=== PATIENT | male | born 1955 | race Caucasian/White ===

== ENCOUNTER 2019-12-06 11:10 | Inpatient (IN) ==
--- NOTE | 2019-12-06 12:05 | Diag Imaging Result Doc PS360 ---
EXAM: CHEST-1 VIEW 12/06/2019 HISTORY: SOB TECHNIQUE: Erect AP portable at 1131 COMMENT: There are diffuse alveolar opacities throughout both lungs particularly in the parahilar regions and particularly in the right upper lobe. These findings were not present on 04/16/2012. The heart size and primary vascularity are increased in size. There is a Port-A-Cath on the right. There are sternotomy wires. IMPRESSION: Pulmonary edema and/or pneumonia. Cardiomegaly. Electronically signed by Luis Antonio Hoffmann 12/06/2019 12:03 PM
[2019-12-06] MEDS ORDERED: AMIDATE ONE ×2 (12:06→19:08)
[2019-12-06] MEDS ORDERED: QUELICIN ONE ×2 (12:07→19:05)
[2019-12-06] MEDS ORDERED: NS 1,000 ML ONE (12:16)
[2019-12-06 12:25] LABS: ALB/GLOB RATIO 1.4; ALBUMIN 3.9 g/dL (3.5-5.0); BASO# 0.03 X1000 (0.0-0.2); BASO% 0.1 % (0.0-0.8); CALCIUM 9.1 mg/dL (8.8-10.2); CREATININE 2.7 mg/dL (0.7-1.2); HEMATOCRIT 29.1 % (42.0-52.0); HEMOGLOBIN 9.4 g/dL (14.0-18.0); IMM GRAN# 0.22 X1000 (0.0-0.04); IMM GRAN% 0.6 % (0.0-0.5); LYMPH# 1.43 X1000 (1.2-3.4); LYMPH% 3.6 % (20.5-51.1); MCH 29.5 PG (27-31); MCHC 32.3 g/dL (33-37); MCV 91.2 FL (81-99); MONO# 2.45 X1000 (0.11-0.59); MONO% 6.2 % (1.7-9.3); MPV 9.2 FL (7.4-10.4); NEUT# 35.47 X1000 (1.4-6.5); NEUT% 89.5 % (42.2-75.2); PLT 385 X1000 (130-400); POTASSIUM 5.8 mmol/L (3.5-5.1); RBC 3.19 XMIL (4.7-6.1); TOTAL BILIRUBIN 0.47 mg/dL (0.20-1.00); TOTAL PROTEIN 6.7 g/dL (6.3-8.3)
[2019-12-06] MEDS ORDERED: VERSED 100 MG in NS 80 ML IV SCH (12:30)
[2019-12-06 12:33] LABS: INR 1.16; PTT 27.8 Seconds (22.3-41.8)
[2019-12-06 12:37] LABS: BANDS 4 % (0-1); LYMPHS 4 % (21-51); MONO 2 % (1-9); SEGS 90 % (42-75)
[2019-12-06 12:38] LABS: HYPOCHROM 1+
[2019-12-06] MEDS ORDERED: VERSED ONE (12:52)
[2019-12-06] MEDS ORDERED: AMIDATE IV ONE (13:26)
[2019-12-06] MEDS ORDERED: VERSED IV ONE (13:27)
[2019-12-06] MEDS ORDERED: QUELICIN IV ONE (13:27)
[2019-12-06] MEDS ORDERED: NS 1,000 ML IV ONE (13:30)
[2019-12-06] MEDS ORDERED: DIPRIVAN 1% IV ONE (13:39)
[2019-12-06] MEDS ORDERED: FENTANYL ONE (13:40)
[2019-12-06] MEDS ORDERED: DIPRIVAN 1% 1,000 MG/100 ML BOTTLE ONE ×2 (13:49→19:06)
[2019-12-06] MEDS ORDERED: LASIX IV ONE (13:51)
[2019-12-06] MEDS: DIPRIVAN 1% 1,000 MG/100 ML BOTTLE IV SCH ×3 (14:00→23:06)
[2019-12-06] MEDS ORDERED: ROCEPHIN 1 GM in NS 50 ML IV ONE (14:14)
[2019-12-06] MEDS ORDERED: ZITHROMAX 500 MG/NS 500 MG/250 ML IVPB IV ONE (14:15)
[2019-12-06 15:25] LABS: ALLEN TEST YES; BE -8.3 mmoll (-3.0-3.0); BLOOD TYPE ARTERIAL; HCO3-(ACT) 18.5 mmoll (20.0-26.0); O2(CT) 6.1 mL/dL (15.0-23.0); O2HB 98.2 % (95.0-99.0); PCO2(98.6) 40 mmHg (35-45); PO2(98.6) 249 mmHg (60-100); SAMPLE BLOOD; SAO2 99.8 % (95.0-100.0); SRATE 16 BPM; THB 3.9 g/dL (11.5-17.4); TVOL 500 mL; pH(98.6) 7.26 (7.35-7.45)
[2019-12-06 15:27] LABS: MODALITY VENTILATOR
--- NOTE | 2019-12-06 15:34 | PROVIDER DOCUMENTATION ---
This chart was entered by Mike Ribeiro Scribe, acting as scribe for Randee Prasad MD. HPI-General Adult - General Chief Complaint: Altered Mental Status Stated Complaint: AMS, SOB, RESTLESS Time Seen by Provider: 12/06/19 11:15 Source: family, EMS Unable to obtain history due to:: altered Allergies/Adverse Reactions: Patient Allergies Allergy/AdvReac Type Severity Reaction Status Date / Time No Known Allergies Allergy Verified 12/06/19 11:47 Home Medications: Home Medication List Medication Instructions Recorded Confirmed Last Taken Type Metoprolol [Lopressor] 50 mg PO BID 10/29/15 12/06/19 12/01/19 09:30 History Pregabalin [Lyrica] 150 mg PO HS 10/29/15 12/06/19 11/30/19 21:00 History Zolpidem [Ambien] 10 mg PO QHS 10/29/15 12/06/19 11/30/19 21:00 History Lansoprazole 30 mg PO HS 11/17/19 12/06/19 11/30/19 21:00 History Methocarbamol 750 mg PO BID 11/17/19 12/06/19 11/30/19 21:00 History PRAVAstatin [Pravachol] 20 mg PO HS 11/17/19 12/06/19 11/30/19 21:00 History Hydrocodone/Acetaminophen [[place] 1 ea PO Q6H PRN PRN #10 tab 11/18/19 12/06/19 12/01/19 09:30 Rx 10-325 Tablet] Ondansetron HCl [Zofran] 4 mg PO Q6H PRN PRN #5 tab 11/18/19 12/06/19 11/30/19 21:00 Rx Cetirizine HCl [Zyrtec] 10 mg PO BID 12/06/19 12/06/19 Unknown History - History of Present Illness -Gen Adult Nature of Presenting Problems: Pt is a 64 y/o m presents to the ED by EMS called by family. Family reports pt has been altered since his first chemo treatment yesterday and for difficulty breathing. EMS reports the orginal call was for AMS then changed to difficulty breathing. On arrival EMS report pt was on the floor with difficulty breathing with an O2 sat in the low 80's. EMS reports pt was anxious and agigtated and restless not keeping still. They report calling and getting permission for 2mg of Versed. EMS reports O2 improved with O2 and breathing treatment. Location of Pain/Injury: reports: none Severity: reports: moderate, severe Onset/Duration: reports: 24 hours ago (began AMS), this morning (SOB) Timing: reports: still present Context/Activities at Onset: reports: none Associated Symptoms: reports: anxiety, shortness of breath. denies: cough, fever/chills Similar Symptoms Previously?: No Recently seen or treated by another doctor?: No Review of Systems - Adult - REVIEW OF SYSTEMS - ADULT ROS:: ROS per family (AMS) Constitutional: denies: chills, fever Eyes: reports: no symptoms reported Ears, Nose, Mouth & Throat: reports: no symptoms reported Cardiovascular: denies: chest pain, edema Respiratory: reports: shortness of breath, wheezing Gastrointestinal: denies: abdominal pain, nausea, vomiting Genitourinary: denies: dysuria, hematuria Musculoskeletal: denies: back pain, neck pain Integumentary: reports: no symptoms reported Neurological: denies: dizziness/vertigo, headache/migraines, seizure Psychiatric: reports: anxiety. denies: alcohol/drug dependence, suicidal thoughts Endocrine: reports: no symptoms reported Hematologic/Lymphatic: reports: no symptoms reported Allergic/Immunologic: reports: no symptoms reported All Other Systems: Reviewed and Negative Past History - Adult - PAST MEDICAL HISTORY-ADULT Review of Records: reports: Old Records Reviewed, Nursing Assessment Review, Medications Reviewed - SOCIAL HISTORY Smoking: non-smoker, quit greater than 1 year Substance Use: none/never Living Situation: family Physical Exam-General - PHYSICAL EXAM-ADULT Initial Vital Signs Reviewed: Yes - CONSTITUTIONAL General Appearance: alert, moderate distress, anxious, other (restless) - EYES Eyes: PERRL/EOMI, pink conjunctivae - NECK Neck: full range of motion, supple - RESPIRATORY Respiratory: accessory muscle use, wheezing, increased rate, other (On arrival to ED pt SAT 69 RA improved to the 80 with 4L NC and began Non rebreather moving to 90.) - CARDIOVASCULAR Cardiovascular: normal peripheral pulses, tachycardia - GASTROINTESTINAL (ABDOMEN) Abdominal Exam: non tender, soft - MUSCULOSKELETAL Extremity: normal range of motion, non-tender, pedal edema - SKIN Integumentary: normal turgor, warm/dry - NEUROLOGIC Neurologic: grossly normal, no motor/sensory deficits - PSYCHIATRIC Psych/Mental Status: normal mood/affect, normal thought content, normal thought process, oriented x 3 Progress - PLAN OF CARE/RESULTS Progress/Plan/Lab Results: Vital Signs - 8 hr 12/06/19 11:12 12/06/19 11:16 Temperature 99.1 F 99.1 F Pulse Rate 109 H Respiratory Rate 30 H Blood Pressure 170/90 O2 Sat by Pulse Oximetry 69 L Laboratory Results - last 24 hr 12/06/19 11:25 POC Glucose 168 H Orders Category Date Time Status Cardiac Monitoring NOW Care 12/06/19 11:21 Active IV Insertion NOW Care 12/06/19 11:21 Completed NEWS Score >or=5:Order NEWS Bundle S.O. NOW Care 12/06/19 11:21 Active Notify Provider of NEWS Score NOW Care 12/06/19 11:21 Active CHEST-1 VIEW [RAD] Stat Exams 12/06/19 11:21 Taken BLOOD CULTURE [BLDCUL] Stat Lab 12/06/19 11:21 Uncollected CBC WITH DIFF [HEME] Stat Lab 12/06/19 11:34 Ordered CK PROFILE [SP CHEM] Stat Lab 12/06/19 11:34 Ordered COMPREHENSIVE METABOLIC PANEL [CHEM] Stat Lab 12/06/19 11:34 Ordered LACTATE, PLASMA [CHEM] Lab 12/06/19 14:30 Uncollected LACTATE, PLASMA [CHEM] Lab 12/06/19 17:30 Uncollected LACTATE, PLASMA [CHEM] Q3H Lab 12/06/19 11:34 Ordered PROTIME WITH INR [COAG] Stat Lab 12/06/19 11:34 Ordered PTT [COAG] Stat Lab 12/06/19 11:34 Ordered TROPONIN T HIGH SENSITIVITY Stat Lab 12/06/19 11:34 Ordered URINALYSIS W/POSS RFLX CULT [URINALYSIS] Stat Lab 12/06/19 11:21 Uncollected O2 Per Protocol Stat Oth 12/06/19 11:21 Active EKG [EKG] Stat Ther 12/06/19 11:22 Ordered Result Diagrams: 12/06/19 11:26 12/06/19 11:26 - REASSESSMENT Reassessment #1 Time Reassessed: 12:04 (Pt O2 SAT on NonRebreather in low 90's) Status: worsening (Pt continues to be restless not tolerating the nonrebrether taking it off, struggling to breath) Reassessment #2 Time Reassessed: 13:34 Status: worsening (Versed drip maxed out and pt remain restless and no fighting vent. Will switch sedation) - EKG 1 Time of EKG reading by physician:: 11:42 EKG Read and Signed by:: Randee Prasad EKG Interpretation (*Must complete 3 of following elements*): Abnormal Rate: 107 Rhythm: 107 Comments: cannot rule out andterior infarct age undetermined - XRAY 1 XRAY Study: Chest Impression: Abnormal (IMPRESSION: Pulmonary edema and/or pneumonia. Cardiomegaly. Electronically signed by Luis Antonio Hoffmann 12/06/2019 12:03 PM) - CONSULTS/PCP/HOSPITALIST Notification #1 *Consult/PCP/Hospitalist*: hosptial Dr Barlow spoke with [place] Time Discussed: 15:33 Reason/Comments: admission Consult Disposition: Will see in ED Procedures - INTUBATION Time of Intubation: 12:15 Intubation Method: orotracheal Equipment: ETT Tube Size (cm): 7.5 Pretreated with 100% Oxygen?: Yes Breath Sounds after Intubation: equal ETT Primary Tube Confirmation: Capnometry CO2 Change, Chest Rise and Fall, Tube placement verified on XRAY Intubation Complications: no complications Vent Settings: See Respiratory Therapy Notes - PROCEDURAL SEDATION Consent Form Signed?: No (Emergent) Sedation type:: deep Indications:: Intubation Prior complications to general anesthesia?: No Prior complications to procedural sedation?: No ASA Classification Score: E. Emergent conditions applies. Airway Physical Exam: normal anatomy Preparation: oximetry during procedure, capnometry during procedure, IV access obtained, suction immediately available Sedation: etomidate (40 mg), other (80mb os Sucs) Complications during/after procedure?: none Departure - Departure Date of Disposition Decision: 12/06/19 Time of Disposition Decision: 15:33 DIAGNOSIS: Pneumonia Qualifiers: Pneumonia type: due to unspecified organism Laterality: unspecified laterality Lung location: unspecified part of lung Qualified Code(s): J18.9 - Pneumonia, unspecified organism Disposition: HOME 01 Certified Medical Emergency: Emergent Condition: Critical Referrals and Follow-Ups: Mao Gomez DO [Primary Care Provider] - - Critical Care Note This patient required my direct & personal management of CC.: Yes Attestation - Physician/ DAY Attestation Patient care was provided by Advanced Practice Provider:: No The physician spent face to face time with patient:: Yes Advanced Practice Provider documentation review:: Supervising physician onsite and consulted in the evaluation and care of this patient. The physician did have a face to face encounter with the patient. This chart was documented by the indicated scribe, (Mike Ribeiro Scribe) and accurately reflects the services I performed and decisions made by me, Randee Prasad MD, as attested by the provider's signature.
--- NOTE | 2019-12-06 16:31 | HISTORY AND PHYSICAL ---
This is a 64-year-old. He is a patient of Dr. Ralph Gomez also followed by Dr. Rangel, recent diagnosis of lymphoma largely in the chest cavity and he recently had MRI for altered mental status, which was unremarkable for any metastatic disease or intracranial pathology, other microvascular changes. Reportedly, he has got more short of breath and came into the emergency room where he had significant hypoxemia. He was intubated. 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 He has had right cervical lymph node which was biopsied. No postop complications following that. PAST MEDICAL HISTORY: He has porphyria cutanea tarda, he has thrombocytopenia nonspecific, anemia iron deficiency unspecific, he has history of neoplasm of the prostate. I think he presented with diffuse large cell B-cell lymphoma with lymphadenopathy with cervical lymphadenopathy but has significant lymphadenopathy in the chest cavity as well. FAMILY HISTORY: History of cancer mother, history of diabetes mother and father, history of heart disease in father, heart disease in male family members before age 55, kidney disease in his mother. SOCIAL HISTORY: No alcohol or drug use. No HIV risk factors. Unable to get review of systems. MEDICATIONS: I reviewed his medication list. He is on Zofran 4 mg he takes p.r.n. nausea, pravastatin 20 mg daily, he was on methocarbamol 750 mg q.12 hours, zolpidem 10 mg at bedtime for sleep, irbesartan hydrochlorothiazide 150/12.5 one tablet in the morning, pregabalin 150 mg capsule I think once a day, hydrocodone acetaminophen 10/325 as needed for pain, aspirin 81 mg a day, metoprolol 50 mg I suspect he takes that twice a day, pravastatin 20 mg daily, lansoprazole 30 mg daily. PHYSICAL EXAMINATION: He is intubated, sedated. His temperature is 99.1 degrees, pulse 109, respirations 30, blood pressure 170/90. Pupils were equal. CVP less than 6 cm. LUNGS: Clear anterolateral. I do not appreciate any cervical or jugular adenopathy preclavicular. I did not appreciate any at this time. ABDOMEN: Soft, nondistended. SKIN: Warm and dry. He has trace edema in his ankles to midshin. Conjunctivae is pink. NECK: Appears to be supple but he is sedated. LABS: White blood cell count 39,600, hematocrit 29, hemoglobin 9.4, platelet count 385,000, 89% neutrophils and 3.6% lymphocytes. Sodium 129, potassium 3.8, chloride 96, BUN 61, creatinine 2.7, blood sugar was 167, calcium 9.1, AST 24, ALT 6, alkaline phosphatase was 73. ProBNP was 35,000. Troponin was 40. CK was 176. ProTime is 15, PTT is 27. Blood gases on arrival, pH was 7.26, pCO2 of 40, PO2 was 249, O2 saturation was 99% and that was after he was intubated with spontaneous rate of 16, FiO2 100%, tidal volume 500, PEEP of 5.0. Chest x-ray on presentation pulmonary edema and pneumonia, cardiomegaly. ASSESSMENT AND PLAN: 1. Presented with respiratory failure, underlying lymphoma largely in the chest cavity. He does appear to have some pulmonary venous hypertension. We are going to check an echocardiogram and look at his left ventricular function. His blood pressures are high so has adequate blood pressure at this time. We will give him some Lasix, will give him 40 mg IV push of Lasix now and then we will give him 40 mg q.12. Will put him on broad-spectrum antibiotics because of his underlying lymphoma. Cover for gram-negative as well as community- acquired pneumococcus and Pseudomonas. We will have him on Zosyn and vancomycin. 2. Renal function. His creatinine was 2.7. Looking back at his creatinines, I do not see any previous number but I assume that is acute kidney injury, not sure what his baseline is. Will watch his urine output and electrolytes. 3. His potassium is 5.8. Aware. We will watch. We will check electrolytes again in the morning as well as magnesium. We will get Pulmonary to help, also get Dr. Rangel, his oncologist/chiropractor sole practitioner to help follow along. 4. He has significant other medical problems. He has benign prostatic hypertrophy, history of prostate cancer in the past, aware. He has a history of primary porphyria cutanea tarda, he has a history of iron deficiency anemia. He has been on long-term I think hormone blocking agents but I did not see it on his list but that was on his report in the past and then recently diagnosed with diffuse large B-cell lymphoma presented with lymphadenopathy in cervical area. We will obviously check him for COVID-19. I do not have high suspicion that he has COVID-19 virus infection but he has been checked. I will move him to ICU. cc: Ben Barlow MD MTDD
--- NOTE | 2019-12-06 16:33 | Diag Imaging Result Doc PS360 ---
EXAM: CHEST/ABD TUBE PLACEMENT 12/06/2019 HISTORY: INTUBATED TECHNIQUE: Upright AP portable at 1233 COMMENT: There is an endotracheal tube with its tip at the thoracic inlet. There is a Port-A-Cath with its tip in the right atrium. There is diffuse alveolar opacity particularly in the parahilar regions as well as some interstitial edema with Lala B lines. This is slightly worse than on 12/06/2019 at 1131. IMPRESSION: Worsened pulmonary edema and/or pneumonia. Electronically signed by Luis Antonio Hoffmann 12/06/2019 4:30 PM
--- NOTE | 2019-12-06 19:56 | EKG Report ---
Test Performed on : 12/06/2019 11:42:50 AM Test Reason : SOB Blood Pressure : / mmHG Vent. Rate : 107 BPM Atrial Rate : 107 BPM P-R Int : 132 ms QRS Dur : 082 ms QT Int : 320 ms P-R-T Axes : 039 037 031 degrees QTc Int : 427 ms Sinus tachycardia. Cannot rule out Anterior infarct , age undetermined Abnormal ECG No previous ECGs available Unconfirmed Result
[2019-12-06] MEDS ORDERED: VANCOMYCIN IV PER PHARMACY MISC SCH (20:10)
[2019-12-06] MEDS: DUONEB (A & A) INH SCH ×2 (20:38→23:40)
[2019-12-06 21:11] LABS: FREE T4 0.82 ng/dL (0.93-1.70); TSH 0.16 uIUmL (0.27-4.20)
[2019-12-06] MEDS: ZOSYN 3.375 GM in NS 50 ML IV SCH (21:30)
[2019-12-06 22:35] LABS: URINE SOURCE CATH
[2019-12-06 22:41] LABS: BILIRUBIN URINE NEGATIVE (NEGATIVE); BLOOD URINE LARGE (NEGATIVE); COLOR STRAW; GLUCOSE URINE NEGATIVE (NEGATIVE); KETONE URINE NEGATIVE (NEGATIVE); LEUKOCYTES URINE SMALL (NEGATIVE); NITRITE URINE NEGATIVE (NEGATIVE); PROTEIN URINE TRACE mg/dL (NEGATIVE); SP GRAVITY URINE 1.011; TURBIDITY URINE CLEAR (CLEAR); UROBILINOGEN URINE NORMAL (NORMAL)
[2019-12-06 22:42] LABS: UR EPITHELIAL CELLS <10 /HPF (<10); URINE BACTERIA NEGATIVE /HPF; URINE RBC TNTC /HPF (<10)
[2019-12-06] MEDS ORDERED: VANCOMYCIN 2,000 MG in NS 500 ML IV ONE (23:00)
[2019-12-07] MEDS: DIPRIVAN 1% 1,000 MG/100 ML BOTTLE IV SCH ×8 (02:15→23:41)
[2019-12-07] MEDS: ZOSYN 3.375 GM in NS 50 ML IV SCH ×4 (02:52→20:45)
[2019-12-07] MEDS: LASIX IV SCH ×3 (03:10→16:30)
[2019-12-07] MEDS: DUONEB (A & A) INH SCH ×6 (03:37→23:10)
[2019-12-07 05:07] LABS: ALLEN TEST YES; BE -7.1 mmoll (-3.0-3.0); BLOOD TYPE ARTERIAL; HCO3-(ACT) 19.4 mmoll (20.0-26.0); METHB 0.8 % (0.0-1.5); MODALITY VENTILATOR; O2(CT) 10.3 mL/dL (15.0-23.0); O2HB 96.6 % (95.0-99.0); PCO2(98.6) 38 mmHg (35-45); PO2(98.6) 111 mmHg (60-100); SAMPLE BLOOD; SAO2 98.6 % (95.0-100.0); SRATE 16 BPM; THB 7.4 g/dL (11.5-17.4); TVOL 500 mL
[2019-12-07 06:27] LABS: CALCIUM 8.5 mg/dL (8.8-10.2); POTASSIUM 4.9 mmol/L (3.5-5.1)
--- NOTE | 2019-12-07 07:05 | Diag Imaging Result Doc PS360 ---
EXAM: CHEST-PORTABLE 12/07/2019 HISTORY: On vent TECHNIQUE: AP portable at 0616 COMMENT: There is an endotracheal tube with its tip slightly below the thoracic inlet and an NG tube which passes into the stomach. There is diffuse interstitial opacity with denser alveolar opacification in the parahilar portions of both lungs. There is slightly denser opacification of the left lower lobe compared to 12/06/2019 otherwise are has been no significant change. IMPRESSION: Pulmonary edema plus minus pneumonia. Electronically signed by Luis Antonio Hoffmann 12/07/2019 7:02 AM
[2019-12-07 07:07] LABS: BASO# 0.02 X1000 (0.0-0.2); BASO% 0.1 % (0.0-0.8); HEMATOCRIT 23.7 % (42.0-52.0); HEMOGLOBIN 7.3 g/dL (14.0-18.0); IMM GRAN# 0.23 X1000 (0.0-0.04); IMM GRAN% 0.8 % (0.0-0.5); LYMPH# 0.62 X1000 (1.2-3.4); LYMPH% 2.2 % (20.5-51.1); MCH 28.6 PG (27-31); MCHC 30.8 g/dL (33-37); MCV 92.9 FL (81-99); MONO# 0.65 X1000 (0.11-0.59); MONO% 2.3 % (1.7-9.3); MPV 9.6 FL (7.4-10.4); NEUT# 26.76 X1000 (1.4-6.5); NEUT% 94.6 % (42.2-75.2); PLT 194 X1000 (130-400); RBC 2.55 XMIL (4.7-6.1); RDW 15.9 % (11.5-14.5); WBC 28.28 X1000 (4.8-10.8)
[2019-12-07 07:45] LABS: BANDS 8 % (0-1); LYMPHS 2 % (21-51); MONO 2 % (1-9); SEGS 88 % (42-75)
--- NOTE | 2019-12-07 08:08 | PROGRESS NOTE ---
DATE: 12/07/2019 SUBJECTIVE: Mr. Moody is followed by Dr. Rangel for a recent diagnosis of large cell B-cell lymphoma, predominantly in the chest. He presented with respiratory failure and was intubated. He has had reports of more confusion. Apparently, a recent MRI did not see any new pathology. He appears comfortable. OBJECTIVE: Temperature 94.7 degrees, pulse 64, respirations 22, blood pressure 116/62. Lungs are clear in all lung cuadra. Cardiovascular Examination: Regular rhythm and rate without murmur or S3. Abdomen is soft. Skin is warm and dry. White count 28,280, hematocrit is 23, hemoglobin 7.3, platelet count 194,000. Sodium 137, potassium 4.9, chloride 102, BUN 60, creatinine 2.0 which has come down from 2.7 yesterday. Blood gases this morning, pH is 7.30, pCO2 is 38, PO2 is 111, O2 saturation was 98%. Urine showed too numerous to count red blood cells and 10 to 20 white blood cells. Chest x-ray from this morning, pulmonary edema plus/minus pneumonia. ASSESSMENT AND PLAN: 1. Presented with respiratory failure, underlying lymphoma. Treating him for pneumonia. Has signs of pulmonary venous hypertension as well. We will check an echocardiogram, look at his left ventricular function. I put him on Lasix 40 mg intravenous every 12 hours. He is on broad-spectrum antibiotics. 2. Acute kidney injury on top of probably chronic kidney disease. Creatinine is 2.7. It is improved a little today with fluid. 3. Potassium is 5.8. I did give him some bicarb, an amp of D50, and some insulin, and that is improved. 4. Underlying lymphoma. 5. Electrolytes this morning, sodium 137, potassium 4.9, chloride 102, BUN is 60, creatinine 2.0. cc: Ben Barlow MD
[2019-12-07] MEDS: ATIVAN IV PRN ×2 (11:34→23:41)
[2019-12-07] MEDS ORDERED: CARDIZEM IV ONE (12:12)
[2019-12-07] MEDS: CARDIZEM 100 MG/NS 100 MG/100 ML IVPB IV SCH ×2 (12:45→18:06)
--- NOTE | 2019-12-07 15:52 | PULMONOLOGY CONSULTATION ---
DATE: 12/07/2019 HISTORY OF PRESENT ILLNESS: Mr. Moody is a 64-year-old white male with a history of prostate cancer who underwent a lymph node excision 11/18/[address] Ezio Michele and was diagnosed with a diffuse large B-cell lymphoma. The patient has a solitary right kidney and a PET scan revealed obstructive uropathy and hydronephrosis associated with abdominal lymphadenopathy. Examination also revealed a urethral stricture. The patient underwent a right ureteral stent placement and dilation of the urethra on 11/21/[address] Shine. He developed altered mental status following chemotherapy yesterday. Which chemotherapy was given is not clear. EMS arrived and his oxygen saturation was 80%. The patient required intubation and initiation of mechanical ventilation in the emergency room. PAST MEDICAL HISTORY: 1. History of prostate cancer. 2. Solitary kidney. 3. History of large B-cell lymphoma with recent initiation of treatment. 4. Hydronephrosis requiring stent placement as per above. 5. History of urethral stricture status post dilation. 6. Hypertension. 7. Dyslipidemia. FAMILY HISTORY: Obtained from the hospitalist H and P is positive for diabetes, heart disease, cancer of unspecified type, and kidney disease. SOCIAL HISTORY: No alcohol or tobacco use noted. REVIEW OF SYSTEMS: Cannot be obtained. PHYSICAL EXAMINATION: General: Reveals a well-developed, well-nourished male on mechanical ventilation. He appears comfortable. Maximum temperature in the last 24 hours is 99.1 degrees, minimum temperature is 94.7 degrees, heart rate 144, respiratory rate 24, blood pressure 116/86, oxygen saturation 100%. HEENT: Pupils are equal but sluggish. Oropharynx appears clear. Neck: Supple. Chest: Reveals diffuse bilateral crackles. Cardiac: Increased rate. Irregular rhythm. Abdomen: Firm with diminished bowel sounds. Extremities: Reveal mottling and are cool to the touch. LABORATORIES: White blood count 39,000, hemoglobin 9.4, platelet count 385,000. There is a left shift with 90% segmented neutrophils and 4% bands. Lymphocyte count is markedly reduced. Sodium 137, potassium 4.9, chloride 102, bicarbonate 18, anion gap 17, BUN 60, creatinine 2.0. Arterial blood gas reveals a pH 7.30, pCO2 of 38, PO2 of 111. IMPRESSION: A 64-year-old with history of prostate cancer, history of solitary kidney with 1. Acute hypoxemic respiratory failure with diffuse bilateral infiltrates. 2. Atrial fibrillation with rapid ventricular response. 3. Acute hypoxemic respiratory failure. 4. Altered mental status. 5. Renal failure. 6. Hypothermia. RECOMMENDATIONS: 1. Continue full ventilatory support. 2. Continue broad-spectrum antibiotics given recent diagnosis of lymphoma. 3. Send sputum for C and S. 4. Initiate diltiazem for atrial fibrillation with rapid ventricular response. 5. Check immunoglobulin levels given recent diagnosis of lymphoma. 6. Check cortisol levels given extensive lymphadenopathy in the abdomen. 7. Routine gastric acid suppression. 8. Routine DVT prophylaxis. 9. Prognosis is guarded. cc: Rajat Sanders MD
[2019-12-07] MEDS: LOVENOX SUBQ SCH (16:29)
[2019-12-07 18:20] LABS: URINE SOURCE CLEAN CATCH
[2019-12-07 18:26] LABS: BILIRUBIN URINE NEGATIVE (NEGATIVE); BLOOD URINE NEGATIVE (NEGATIVE); COLOR STRAW; GLUCOSE URINE NEGATIVE (NEGATIVE); KETONE URINE NEGATIVE (NEGATIVE); LEUKOCYTES URINE NEGATIVE (NEGATIVE); NITRITE URINE NEGATIVE (NEGATIVE); PH URINE 6.5; PROTEIN URINE NEGATIVE (NEGATIVE); SP GRAVITY URINE 1.011; TURBIDITY URINE CLEAR (CLEAR); UROBILINOGEN URINE NORMAL (NORMAL)
[2019-12-07 18:28] LABS: UR EPITHELIAL CELLS <10 /HPF (<10); URINE BACTERIA NEGATIVE /HPF; URINE RBC <10 /HPF (<10); URINE WBC <10 /HPF (<10)
[2019-12-07] MEDS ORDERED: LEVOPHED 8 MG in D5 1/2 NS 250 ML IV SCH (22:15)
[2019-12-08] MEDS: DIPRIVAN 1% 1,000 MG/100 ML BOTTLE IV SCH ×8 (02:03→22:22)
[2019-12-08] MEDS: ZOSYN 3.375 GM in NS 50 ML IV SCH ×4 (02:03→19:45)
[2019-12-08] MEDS: DUONEB (A & A) INH SCH ×6 (03:10→23:20)
[2019-12-08] MEDS: LASIX IV SCH ×2 (04:28→15:24)
[2019-12-08 04:32] LABS: ALLEN TEST YES; BE -4.4 mmoll (-3.0-3.0); BLOOD TYPE ARTERIAL; HCO3-(ACT) 21.5 mmoll (20.0-26.0); METHB 0.9 % (0.0-1.5); O2(CT) 11.8 mL/dL (15.0-23.0); PCO2(98.6) 32 mmHg (35-45); PO2(98.6) 124 mmHg (60-100); SAMPLE BLOOD; SRATE 16 BPM; THB 8.5 g/dL (11.5-17.4); TVOL 600 mL
[2019-12-08 04:35] LABS: MODALITY VENTILATOR
[2019-12-08 04:36] LABS: HEMATOCRIT 25.8 % (42.0-52.0); HEMOGLOBIN 8.4 g/dL (14.0-18.0); MCHC 32.6 g/dL (33-37); MCV 92.1 FL (81-99); MPV 9.7 FL (7.4-10.4); RBC 2.8 XMIL (4.7-6.1); RDW 16.5 % (11.5-14.5); WBC 21.52 X1000 (4.8-10.8)
[2019-12-08 04:49] LABS: ALB/GLOB RATIO 1.2; CALCIUM 8.8 mg/dL (8.8-10.2); CREATININE 1.8 mg/dL (0.7-1.2); MAGNESIUM 2.2 mg/dL (1.5-2.7); PHOSPHORUS 4.3 mg/dL (2.7-4.5); POTASSIUM 3.9 mmol/L (3.5-5.1); TOTAL BILIRUBIN 0.7 mg/dL (0.20-1.00); TOTAL PROTEIN 5.6 g/dL (6.3-8.3)
--- NOTE | 2019-12-08 06:37 | Diag Imaging Result Doc PS360 ---
EXAM: CHEST-PORTABLE HISTORY: respiratory failure TECHNIQUE: Single view COMPARISON: 12/07/2019 FINDINGS: Good positioning of the endotracheal tube, nasogastric tube, and right jugular portacatheter. The bilateral infiltrates are less prominent on the current study. No cardiomegaly. A heart valve has been replaced. IMPRESSION: Interval improvement Electronically signed by Trent Lemus 12/08/2019 6:34 AM
--- NOTE | 2019-12-08 10:51 | PROGRESS NOTE ---
DATE: 12/08/2019 SUBJECTIVE: Mr. Moody is on the ventilator. He was recently diagnosed with lymphoma and presented to the emergency room in respiratory failure. He has large B-cell lymphoma with lymphadenopathy, predominantly in the thoracic cavity. His chest x-ray from this morning, interval improvement. Good position of the endotracheal tube, nasogastric tube, and right jugular Port-A-Cath. Bilateral infiltrates are less prominent. PHYSICAL EXAMINATION: Vital Signs: Temperature 97.8 degrees, pulse 100, respirations 16, blood pressure is 77/48. Pupils are equal and round. Lungs are clear in all lung cuadra. Cardiovascular Examination: Regular rhythm and rate without murmur or S3. Urine output was 5500 mL. ASSESSMENT AND PLAN: 1. Acute hypoxemic respiratory failure with diffuse bilateral infiltrates. 2. Atrial fibrillation, rapid ventricular response. 3. Acute hypoxemic respiratory failure. 4. Altered mental status. 5. Acute kidney injury. 6. Hypothermia. 7. We sent sputum for culture and sensitivity. He is on continued broad-spectrum antibiotics. He is on diltiazem for rapid ventricular response to atrial fibrillation. We are going to check immunoglobulin levels with his recent diagnosis of lymphoma. We will check his cortisol levels as well as he has extensive lymphoma in the abdomen. Continue proton pump inhibitors for gas and acid suppression and his deep venous thrombosis prophylaxis. ORDERS: I do not see any change. He is on vancomycin and Zosyn. LABORATORY DATA: From this morning has come down a little bit. It was 39,000. It is now 21,000. Platelet count 147,000, MCV is 92. Electrolytes: Sodium 144, potassium 3.9, chloride 105, BUN 54, creatinine has come down to 1.8. Note that his TSH and his T4 are a little low. cc: Ben Barlow MD
[2019-12-08] MEDS: SOLU-CORTEF IV SCH ×2 (11:30→18:18)
[2019-12-08] MEDS: VANCOMYCIN 1,600 MG in NS 250 ML IV SCH (11:58)
[2019-12-08] MEDS: ATIVAN IV PRN ×2 (12:02→15:02)
--- NOTE | 2019-12-08 12:24 | ECHO REPORT ---
ORDER DATE: 12/08/2019 INDICATION: CHF. FINDINGS: This is a limited study with very poor views: 1. The right and left ventricles appear to have normal systolic function. Estimated LV ejection fraction is greater than 55%. 2. There is no pericardial effusion identified. 3. The IVC does appear to be somewhat dilated. It did not appear to collapse. 4. No mitral valve prolapse. 5. No pericardial effusion. 6. Limited Doppler evaluation performed. cc: MD Ben Hollis MD
[2019-12-08] MEDS: CARDIZEM 100 MG/NS 100 MG/100 ML IVPB IV SCH ×2 (15:01→21:15)
[2019-12-08] MEDS: LOVENOX SUBQ SCH (15:24)
--- NOTE | 2019-12-08 18:05 | PULMONOLOGY PROGRESS NOTE ---
DATE: 12/08/2019 SUBJECTIVE: The patient is arousable. He is not alert. He remains on sedation. OBJECTIVE: Blood pressure 94/57, heart rate 143, respiratory rate 14, oxygen saturation 100%. HEENT: Pupils are equal. Oropharynx appears clear. Neck: Supple. Chest: Reveals coarse rhonchi bilaterally. Cardiac: S1-S2. Abdomen: Soft. Extremities: Reveal 1+ peripheral edema. LABORATORIES: Chest x-ray reveals bilateral pulmonary edema/effusions with significant improvement over the last 24 hours. White blood count 21.5 thousand, hemoglobin 8.4, platelet count 147,000. Sodium 144, potassium 3.9, chloride 105, bicarb 20, BUN 54, creatinine 1.8. Cortisol level is markedly reduced at 2.1. Echocardiogram reveals good LV function. IMPRESSION: A 64-year-old with 1. Acute hypoxemic respiratory failure. 2. Diffuse bilateral infiltrates, cultures are pending. 3. Altered mental status. 4. Renal failure with some improvement in renal numbers. 5. Hypothermia on presentation. 6. Adrenal insufficiency with severe reduction in cortisol level. PLAN: 1. Continue diuresis as tolerated. 2. Continue broad-spectrum antibiotics pending results of culture data. 3. Continue diltiazem for atrial fibrillation. Consider transitioning to amiodarone if this continues to be an issue. 4. Agree with initiation of stress-dose steroids. 5. Continue DVT prophylaxis. cc: Rajat Sanders MD
[2019-12-08] MEDS: LOPRESSOR IV PRN (18:18)
[2019-12-09] MEDS ORDERED: TYLENOL PO PRN (00:11)
[2019-12-09] MEDS ORDERED: NS 250 ML ONE (01:50)
[2019-12-09] MEDS: ZOSYN 3.375 GM in NS 50 ML IV SCH ×4 (02:30→21:10)
[2019-12-09] MEDS: SOLU-CORTEF IV SCH ×3 (02:30→18:12)
[2019-12-09] MEDS: DUONEB (A & A) INH SCH ×6 (03:30→23:15)
[2019-12-09] MEDS: LASIX IV SCH (03:51)
[2019-12-09 05:17] LABS: ALLEN TEST YES; BE -2.6 mmoll (-3.0-3.0); BLOOD TYPE ARTERIAL; HCO3-(ACT) 22.9 mmoll (20.0-26.0); METHB 1.6 % (0.0-1.5); O2(CT) 12.8 mL/dL (15.0-23.0); PCO2(98.6) 33 mmHg (35-45); PO2(98.6) 138 mmHg (60-100); SAMPLE BLOOD; SAO2 98.8 % (95.0-100.0); SRATE 14 BPM; THB 9.3 g/dL (11.5-17.4); TVOL 600 mL; pH(98.6) 7.42 (7.35-7.45)
[2019-12-09 05:18] LABS: MODALITY VENTILATOR
[2019-12-09 06:15] LABS: ALB/GLOB RATIO 1.1; ALBUMIN 3.3 g/dL (3.5-5.0); CALCIUM 9.1 mg/dL (8.8-10.2); CREATININE 1.7 mg/dL (0.7-1.2); POTASSIUM 3.4 mmol/L (3.5-5.1); TOTAL BILIRUBIN 0.65 mg/dL (0.20-1.00); TOTAL PROTEIN 6.2 g/dL (6.3-8.3)
[2019-12-09] MEDS: ATIVAN IV PRN ×2 (06:39→14:15)
--- NOTE | 2019-12-09 06:43 | Diag Imaging Result Doc PS360 ---
CHEST-PORTABLE - 12/09/2019 INDICATION: respiratory failure COMPARISON: 12/08/2019 FINDINGS: Support lines and tubes are stable and in good position. Heart size and pulmonary vascularity are normal. There has been significant improvement in the bilateral central infiltrates/pulmonary edema. No new infiltrates. IMPRESSION: Improvement from prior. Electronically signed by Dwight Pandey 12/09/2019 6:41 AM
[2019-12-09] MEDS: DIPRIVAN 1% 1,000 MG/100 ML BOTTLE IV SCH (07:02)
[2019-12-09] MEDS: POTASSIUM CHLORIDE 20 MEQ/SWI 20 MEQ/100 ML IVPB IV SCH ×2 (10:29→14:38)
[2019-12-09] MEDS: LOPRESSOR IV PRN (11:13)
[2019-12-09] MEDS: CARDIZEM 100 MG/NS 100 MG/100 ML IVPB IV SCH ×2 (11:17→17:18)
--- NOTE | 2019-12-09 11:38 | EKG Report ---
Test Performed on : 12/09/2019 11:34:32 AM Test Reason : afib Blood Pressure : / mmHG Vent. Rate : 125 BPM Atrial Rate : 150 BPM P-R Int : 000 ms QRS Dur : 080 ms QT Int : 334 ms P-R-T Axes : 000 040 183 degrees QTc Int : 482 ms Atrial fibrillation. with rapid ventricular response. Minimal voltage criteria for LVH, may be normal variant ST & T wave abnormality, consider inferolateral ischemia Abnormal ECG No previous ECGs available Confirmed by Cain ZUNIGA, Ben Meade ([id number]) on 12/10/2019 9:24:57 AM
[2019-12-09] MEDS: LANOXIN IV SCH ×3 (12:02→20:45)
[2019-12-09 12:06] LABS: ALLEN TEST YES; BE -1.9 mmoll (-3.0-3.0); BLOOD TYPE ARTERIAL; HCO3-(ACT) 23.4 mmoll (20.0-26.0); METHB 0.7 % (0.0-1.5); O2(CT) 14.3 mL/dL (15.0-23.0); O2HB 96.6 % (95.0-99.0); PCO2(98.6) 33 mmHg (35-45); PO2(98.6) 106 mmHg (60-100); SAMPLE BLOOD; SAO2 99.1 % (95.0-100.0); THB 10.4 g/dL (11.5-17.4); pH(98.6) 7.43 (7.35-7.45)
[2019-12-09 12:08] LABS: MODALITY VENTILATOR
--- NOTE | 2019-12-09 12:33 | PULMONOLOGY PROGRESS NOTE ---
DATE: 12/09/2019 SUBJECTIVE: The patient was placed on a weaning trial and sedation. He will open his eyes. He is having difficulty with tachycardia. OBJECTIVE: Vital Signs: Maximum temperature in the last 24 hours of 100.2 degrees, blood pressure 137/72, heart rate 128, respiratory rate 16, oxygen saturation 99%. HEENT: Pupils are equal and reactive. Oropharynx appears clear. Neck: Supple. Chest: The chest reveals coarse rhonchi bilaterally. Cardiac: Increased rate, irregular rhythm. Abdomen: Soft. Extremities: The extremities reveal decreased edema. DIAGNOSTIC DATA: Chest x-ray reveals significant decrease in pulmonary edema, small effusions suspected in the lung bases. Sodium 145 potassium 3.4, chloride 106, bicarbonate 22, BUN 48, creatinine 1.7. Arterial blood gas reveals a pH of 7.42, pCO2 of 33, pO2 of 138. IMPRESSION: A 64-year-old with 1. Acute hypoxemic respiratory failure. 2. Diffuse pulmonary infiltrates with continued improvement. 3. Altered mental status. 4. Renal failure. 5. Adrenal insufficiency. 6. Recently diagnosed lymphoma. DISCUSSION: A 64-year-old with problems outlined above. He continues to improve. He is having difficulty with atrial fibrillation. PLAN: 1. Continue diuresis. 2. Continue antibiotics. 3. Initiate spontaneous breathing trial. 4. Heart rate controlled per Cardiology. 5. Evaluation for extubation today. CC: 35 minutes cc: Rajta Sanders MD MTD
--- NOTE | 2019-12-09 13:09 | CARDIOLOGY CONSULTATION ---
DATE: 12/09/2019 CHIEF COMPLAINT: Shortness of breath. REASON FOR CONSULTATION: Atrial fibrillation, rapid response. HISTORY: Mr. Moody is a 64-year-old, male, a patient of Dr. Mao Gomez and Dr. Tra Pelayo, sous chef kitchen manager. He also is a patient of Dr. Ragnel from oncology. He presented to the emergency room on December 05 at about 11 o'clock in the morning with complaints of getting progressively obtunded, associated with restlessness and significant shortness of breath. Upon presentation, a chest x-ray was done and it showed extensive infiltrates of both lungs, alveolar opacities consistent with pneumonia or pulmonary edema. The patient was intubated emergently and he remains intubated until now. Since admission, they noted the presence of initially sinus rhythm and subsequently he has converted to atrial fibrillation with rapid response, and that is the reason why they consulted us. They put him on Cardizem. Currently, he is undergoing a trial of weaning. The reason for his pneumonia/pulmonary edema is unclear. When he first came in, his BUN and creatinine were 61 and 2.7. He had just been given chemotherapy a few days before, on December 04. Currently, his BUN and creatinine have dropped to 48 and 1.7. The patient has been also found to have low platelets in the past. Currently, his platelet count is normal. At this time, the patient is barely responsive, very obtunded, seems to open his eyes, does not quite follow commands. PAST MEDICAL HISTORY: As noted on records from our office, this patient has been diagnosed with severe aortic valve disease and has undergone previous aortic valve replacement in August of [address] Daniels. He received a 27 mm Magna Ease bioprosthetic valve. He had a heart catheterization back then that showed only mild degree of coronary atherosclerosis. The patient carries a diagnosis of hepatitis C and he has had porphyria cutanea tarda, which is being followed by a specialist. The patient was recently diagnosed with large cell B-cell lymphoma on a biopsy dated 11/18/2019 and chemotherapy has been started. He carries a diagnosis of diabetes mellitus type 2 and hypogonadism. He has been found to have acid reflux and a hiatal hernia in the past. SURGICAL HISTORY: Besides the aortic valve replacement includes tonsillectomy, prostate surgery. The most recent surgery that he has had with Dr. Shine on 11/21/2019 included urethral dilatation, placement of a 6-Eritrean, 24 cm right ureteral stent. SOCIAL HISTORY: Positive for being , retired, lives at home. Not a smoker or drinker. FAMILY HISTORY: Mother had diabetes. Father had coronary heart disease. ALLERGIES: Negative. HOME MEDICATIONS: At the time of the present hospital admission included the following: Cetirizine, Zyrtec 10 mg twice a day, hydrocodone/acetaminophen every 6 hours, lansoprazole 20 mg at bedtime, methocarbamol 750 twice a day, metoprolol 50 mg twice a day, Zofran 4 mg every 6 hours, pravastatin 20 mg at bedtime, Lyrica 150 daily, zolpidem 10 mg at bedtime. REVIEW OF SYSTEMS: The patient is unable to provide a review of systems at this time. He is intubated. PHYSICAL EXAMINATION: Vital Signs: Blood pressure is 137/72, pulse 88, temperature is 99.9 with highest 100.2, respirations right now are 15. He seems to be at times arousable. Appears to be chronically ill, pale. HEENT: No jugular venous distention. There is a Port-A-Cath on the right side. Chest: Reveals diminished breath sounds bilaterally. Heart sounds are irregularly irregular, rapid. Abdomen: Soft. There is no hepatomegaly. Extremities: Show palpable pulses. Neurological Examination: Again, he is obtunded. He does not move much of his extremities spontaneously. IMPRESSION: 1. Patient who presented with pneumonia, bilateral pulmonary infiltrates, acute hypoxemic respiratory failure. This may be a combination of actual infection, etiology unclear, plus diastolic heart failure. 2. Patient with atrial fibrillation, paroxysmal. This has happened on prior occasions; specifically, after he had his aortic valve replacement. 3. History of aortic valve replacement with a bioprosthetic valve, 27 mm Magna Ease in 2016. 4. History of coronary atherosclerosis (non-obstructive coronary heart disease). 5. Previous radiographic evidence of peripheral vascular disease. 6. Hydronephrosis. 7. Recent diagnosis of diffuse large cell B-cell lymphoma. Currently undergoing chemotherapy. 8. Acute on chronic renal failure. 9. 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 Currently in remission. RECOMMENDATION: At this time, we will keep the patient on Cardizem. Continue weaning trials per Dr. Sanders. We will add some digoxin to try to control the heart rate. We will see how he does. At this time, they have tested the patient for Covid and that result is pending. His prognosis is quite guarded. We will follow him as needed. cc: Warren Scott MD MTDD
[2019-12-09] MEDS: LOVENOX SUBQ SCH (14:39)
--- NOTE | 2019-12-09 15:47 | HEMO/ONC CONSULTATION ---
DATE: 12/08/2019 ADMITTING PHYSICIAN: Dr. Ben Barlow. REQUESTING PHYSICIAN: Dr. Ben Barlow. We appreciate this consult. CHIEF COMPLAINT: Diffuse large B-cell lymphoma. HISTORY OF PRESENT ILLNESS: Mr. Walter Moody is a pleasant, 64-year-old, male, well- known to Dr. Rangel with a history of diffuse large B-cell lymphoma, non-GCB, status post cycle 1 of RR CHOP on 12/04/2019. The patient presented to Emergency Department after approximately 24 hours with complaints of worsening shortness of breath and was found to be significantly hypoxemic. The patient's also reported that he had become more confused. The patient was intubated and placed on the ventilator in the emergency department, and admitted to the ICU for acute level care. PAST MEDICAL HISTORY: 1. Porphyria cutanea tarda. 2. Thrombocytopenia. 3. Iron deficiency anemia. 4. Prostate cancer. 5. Diffuse large B-cell lymphoma. FAMILY HISTORY: Significant for an unknown type of cancer in the patient's mother. No other hematologic or oncologic disease noted. SOCIAL HISTORY: The patient does not use tobacco, alcohol, or illicit drugs. MEDICATIONS ON ADMISSION: 1. Zofran. 2. Pravastatin. 3. Methocarbamol. 4. Zolpidem. 5. Irbesartan/hydrochlorothiazide. 6. Pregabalin. 7. Hydrocodone. 8. Aspirin 81 mg. 9. Metoprolol. 10. Lansoprazole. ALLERGIES: The patient has no known drug allergies. REVIEW OF SYSTEMS: A 14 point review of systems was attempted and is unable to be obtained as the patient is sedated, on the ventilator at this time. PHYSICAL EXAMINATION: Mr. Moody is a pleasant, 64-year-old, male, lying supine in bed, intubated and sedated. Vital Signs: Temperature 97.8 degrees, blood pressure 77/48, heart rate 100, respirations 16, O2 saturation 100% on the ventilator. HEENT: Normocephalic, atraumatic. Mucous membranes pale and somewhat dry. Sclerae are anicteric. Extraocular movements intact. Neck: Supple. Chest: Respirations nonlabored, on the ventilator. CV: S1 and S2 are heard. The patient is tachycardic. Abdomen: Nondistended. Extremities: Without clubbing, cyanosis, or edema. Dermatologic: No rashes, bruises, or lesions. Neurologic: Again, the patient is sedated, on the ventilator. He does withdraw to pain. LABORATORY DATA: Hemoglobin 8.4, hematocrit 25.8, white blood cell count 21.52, platelets 147,000. Sodium 144, potassium 3.9, chloride 105, CO2 is 20, BUN 54, creatinine 1.8, and glucose is 91. IgA is slightly decreased to 52, IgG slightly decreased to 623, IgM 43. IMAGING STUDIES: Chest x-ray reveals improved bilateral infiltrates. MRI of the brain on 12/05/2019 revealed minimal microvascular white matter changes related to age with no evidence of acute intracranial disease. ASSESSMENT AND PLAN: 1. Diffuse large B-cell lymphoma, non-GCB, status post cycle 1 of RR CHOP on 12/04/2019. We will hold further chemotherapy until the patient's acute illness improves. 2. Acute respiratory failure with bilateral infiltrates, currently intubated and sedated, on the ventilator. Treatment per pulmonology. Covid-19 is pending. 3. Atrial fibrillation with rapid ventricular response. Heart rate is controlled at 100. 4. Altered mental status. The patient is sedated and intubated at this time. Mental status difficult to ascertain. 5. Renal failure, stable at this time with a creatinine of 1.8. 6. Congestive heart failure. A 2D echocardiogram is currently pending. 7. We will follow along with you and make further recommendations pending outcomes. The above reflects the history, examination, assessment, and plan of Dr. Rangel. Dictated by RACHEL Simon for Stephen Rangel MD cc: RACHEL Simon MD
--- NOTE | 2019-12-09 18:39 | PROGRESS NOTE ---
DATE: 12/09/2019 SUBJECTIVE: The patient is resting comfortably. He is undergoing a weaning trial. OBJECTIVE: Vital Signs: Temperature 97.8 degrees, blood pressure 149/77, heart rate 123, respirations 17, O2 saturation 98% on the mechanical ventilator. Intake 1.4 L. Output 3.3 L. General: This is a chronically ill-appearing elderly male lying in bed in no acute distress. Heart: S1, S2 normal, tachycardic. Lungs: Coarse breath sounds bilaterally. Abdomen: Positive bowel sounds. Soft, nontender, nondistended. Extremities: No edema, no cyanosis. Neurologic: The patient is awake and moving his extremities. LABS: Sodium 145, potassium 3.4, chloride 106, CO2 22, BUN 48, creatinine 1.7, glucose 132, calcium 9.1, magnesium 2. AST 12, ALT 5, alkaline phosphatase 66. ASSESSMENT AND PLAN: 1. Acute hypoxemic respiratory failure. Multifactorial. The patient is currently undergoing a weaning trial. We will continue to treat the underlying infection. 2. Bilateral lobe pneumonia. Continue with broad-spectrum antibiotics and bronchodilator therapy. Management as per the vehicle technician. 3. Atrial fibrillation. The patient has been seen by the blender/braze applicator and is now on digoxin. 4. Volume overload. Continue with diuretic therapy. 5. Adrenal insufficiency. Continue on stress dose steroids. 6. Diffuse large B-cell lymphoma, status post chemotherapy. Aware. Oncology is following. 7. Acute kidney injury. Slowly improving. Continue to monitor the urine output closely. We will avoid nephrotoxic agents. 8. Gastrointestinal prophylaxis. We will start the patient on Protonix. 9. Deep vein thrombosis prophylaxis. Continue on Lovenox. 10. Disposition. The patient is currently on isolation pending the results of the COVID 19 test. The patient remains critically ill. cc: Ethel Murrell MD [facility]
[2019-12-10] MEDS: VANCOMYCIN 1,600 MG in NS 250 ML IV SCH (00:30)
[2019-12-10] MEDS: LANOXIN IV SCH (00:51)
[2019-12-10] MEDS: DIPRIVAN 1% 1,000 MG/100 ML BOTTLE IV SCH ×4 (01:40→07:33)
[2019-12-10] MEDS: ZOSYN 3.375 GM in NS 50 ML IV SCH ×4 (02:10→20:33)
[2019-12-10] MEDS: SOLU-CORTEF IV SCH ×3 (02:10→18:40)
[2019-12-10] MEDS: DUONEB (A & A) INH SCH ×6 (03:15→23:45)
[2019-12-10 04:36] LABS: ALLEN TEST YES; BLOOD TYPE ARTERIAL; HCO3-(ACT) 23.3 mmoll (20.0-26.0); METHB 1.4 % (0.0-1.5); O2HB 94.9 % (95.0-99.0); PCO2(98.6) 32 mmHg (35-45); PO2(98.6) 86 mmHg (60-100); SAMPLE BLOOD; SAO2 97.5 % (95.0-100.0); THB 8.9 g/dL (11.5-17.4); pH(98.6) 7.44 (7.35-7.45)
[2019-12-10 04:37] LABS: MODALITY VENTILATOR
[2019-12-10] MEDS: LASIX IV SCH (06:06)
[2019-12-10] MEDS: CARDIZEM 100 MG/NS 100 MG/100 ML IVPB IV SCH ×4 (06:07→23:10)
[2019-12-10 06:30] LABS: BASO# 0.02 X1000 (0.0-0.2); BASO% 0.2 % (0.0-0.8); EOS# 0.01 X1000 (0.0-0.7); EOS% 0.1 % (0.0-10.0); HEMATOCRIT 26.7 % (42.0-52.0); HEMOGLOBIN 8.6 g/dL (14.0-18.0); IMM GRAN# 0.78 X1000 (0.0-0.04); IMM GRAN% 8.3 % (0.0-0.5); LYMPH# 0.32 X1000 (1.2-3.4); LYMPH% 3.4 % (20.5-51.1); MCH 29.4 PG (27-31); MCHC 32.2 g/dL (33-37); MCV 91.1 FL (81-99); MONO# 0.02 X1000 (0.11-0.59); MONO% 0.2 % (1.7-9.3); MPV 10.8 FL (7.4-10.4); NEUT# 8.29 X1000 (1.4-6.5); NEUT% 87.8 % (42.2-75.2); PLT 97 X1000 (130-400); RBC 2.93 XMIL (4.7-6.1); RDW 15.9 % (11.5-14.5); WBC 9.44 X1000 (4.8-10.8)
[2019-12-10 06:52] LABS: LYMPHS 3 % (21-51)
--- NOTE | 2019-12-10 06:52 | Diag Imaging Result Doc PS360 ---
CHEST-PORTABLE - 12/10/2019 INDICATION: respiratory failure COMPARISON: 12/09/2019 FINDINGS: Support lines and tubes are stable and in good position. There is slight worsening infiltrate in the left lower lobe with decreased visualization of the left hemidiaphragm. Overall slight worsening in the central infiltrates/pulmonary edema. No large pleural effusion. Heart size remains top normal. IMPRESSION: Worsening in the central and left basilar infiltrates/pulmonary edema. Electronically signed by Dwight Pandey 12/10/2019 6:49 AM
[2019-12-10 07:35] LABS: ALB/GLOB RATIO 1.5; ALBUMIN 3.5 g/dL (3.5-5.0); CALCIUM 8.8 mg/dL (8.8-10.2); PHOSPHORUS 5.1 mg/dL (2.7-4.5); POTASSIUM 3.7 mmol/L (3.5-5.1); TOTAL BILIRUBIN 1.15 mg/dL (0.20-1.00); TOTAL PROTEIN 5.8 g/dL (6.3-8.3)
[2019-12-10 07:40] LABS: SEGS 97 % (42-75)
--- NOTE | 2019-12-10 08:12 | EKG Report ---
Test Performed on : 12/10/2019 07:00:35 AM Test Reason : ekg Blood Pressure : / mmHG Vent. Rate : 097 BPM Atrial Rate : 097 BPM P-R Int : 142 ms QRS Dur : 074 ms QT Int : 350 ms P-R-T Axes : 026 043 232 degrees QTc Int : 444 ms Sinus rhythm. with premature atrial complexes. with aberrant conduction. ST & Marked T wave abnormality, consider anterolateral ischemia Abnormal ECG When compared with ECG of 09-DEC-2019 11:34, (Unconfirmed) Sinus rhythm. has replaced Atrial fibrillation. T wave inversion more evident in Inferior leads T wave inversion more evident in Anterior leads Confirmed by Cain ZUNIGA, Ben Meade ([id number]) on 12/10/2019 9:25:39 AM
--- NOTE | 2019-12-10 08:59 | CARDIOLOGY PROGRESS NOTE ---
DATE: 12/10/2019 CHIEF COMPLAINT: Irregular heartbeat/shortness of breath. SUBJECTIVE: Mr. Moody is still intubated. He has converted to sinus rhythm overnight. He is unresponsive at this time on IV propofol although they are trying to wean it off. His chest x-ray this morning shows worsening in the central and left basilar infiltrates/pulmonary edema. His EKG shows sinus rhythm with PACs and diffuse repolarization abnormality. OBJECTIVE: Vital Signs: Blood pressure is 147/68, pulse 91, respirations 15, and temperature 96.9. General: The patient is unresponsive. HEENT: No obvious abnormalities. Chest: Diffusely diminished breath sounds bilaterally. Cardiac: Heart sounds are regular at this time with some extrasystole, quite distant. I do not hear any significant murmur. Abdomen: The abdomen is soft. Bowel sounds are diminished. Extremities: The extremities show palpable dorsalis pedis pulses. No obvious edema. Neurological: He is unresponsive. LABORATORY DATA: Blood work: His white cell count is 9,440, hemoglobin 8.6 grams, and hematocrit 26.7%. Blood gases on CPAP 35%, pO2 86, CO2 32, and pH 744. His sodium is 149, potassium 3.7, BUN 56, and creatinine 2. IMPRESSION: 1. Patient who presented to the hospital with respiratory failure and mental status changes. The patient has radiographic evidence of pneumonia as well as clinical suggestion of pneumonia. Currently he is on broad-spectrum antibiotics. 2. Paroxysmal atrial fibrillation. He just converted to sinus rhythm on IV Cardizem. 3. History of aortic valve replacement with a bioprosthetic valve.(For severe Aortic stenosis). 4. Coronary atherosclerosis without any definite coronary artery obstruction. 5. Acute on chronic renal failure. 6. Diffuse large cell B-cell lymphoma. 7. History of hepatitis C with porphyria cutanea tarda (the latter probably a complication of the former). 8. 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 There is laboratory evidence of hypothyroidism with low TSH and low free T4, evidence of hypoadrenal function with low cortisol levels and before that the patient had a history of hypogonadism. This may need to be addressed by an web mobile designer at some point. RECOMMENDATIONS: At this time, I would continue the present course of therapy. The patient may require some more prolonged respiratory support than what he is currently getting. The presence of hypernatremia suggests that he has a water deficit. We may have to give him hypotonic fluids. We will discuss with the respiratory team or the pulmonary team about whether or not extra diuretics are needed at this time. His worsening on the chest x-ray today is worrisome and might suggest some noncardiogenic type of pulmonary infiltrate. cc: Warren Scott MD MTDD
[2019-12-10 09:09] LABS: URINE SOURCE CATH
[2019-12-10 09:28] LABS: BILIRUBIN URINE NEGATIVE (NEGATIVE); BLOOD URINE LARGE (NEGATIVE); COLOR BROWN; GLUCOSE URINE NEGATIVE (NEGATIVE); KETONE URINE NEGATIVE (NEGATIVE); LEUKOCYTES URINE MODERATE (NEGATIVE); NITRITE URINE NEGATIVE (NEGATIVE); PROTEIN URINE 50 mg/dL (NEGATIVE); SP GRAVITY URINE 1.012; TURBIDITY URINE TURBID (CLEAR); UR EPITHELIAL CELLS <10 /HPF (<10); URINE BACTERIA NEGATIVE /HPF; URINE RBC TNTC /HPF (<10); URINE WBC TNTC /HPF (<10); UROBILINOGEN URINE NORMAL (NORMAL)
[2019-12-10 09:29] LABS: URINE YEAST NONE SEEN
--- NOTE | 2019-12-10 09:37 | HEMO/ONC PROGRESS NOTE ---
DATE: 12/09/2019 CHIEF COMPLAINT: Intubated/sedated. VITAL SIGNS: Temperature 99.9 degrees, blood pressure 137/72, heart rate 88, respirations 15, O2 saturation 99% on the ventilator. PHYSICAL EXAMINATION: No physical exam was performed at this time due to COVID-19 testing. LABORATORY DATA: Hemoglobin 8.4, hematocrit 25.8, white blood cell count is 2152, platelets 147,000. Sodium 145, potassium 3.4, chloride 106, CO2 is 22, BUN 48, creatinine 1.7, and glucose is 132. IMAGING STUDIES: Chest x-ray reveals significant improvement in bilateral infiltrates and edema. ASSESSMENT AND PLAN: 1. Diffuse large B-cell lymphoma, status post cycle 1 of RR-CHOP on 12/04/2019. We will hold treatment until acute illness resolves. 2. Acute respiratory failure, currently on the ventilator. 3. Diffuse bilateral infiltrates, on vancomycin and Zosyn at this time. Coronavirus Disease 2019 testing is pending. 4. Altered mental status, difficult to assess as the patient is sedated at this time. 5. We will follow along with you and make further recommendations pending outcomes. Dictated by RACHEL Simon for Stephen Rangel MD cc: RACHEL Simon MD
[2019-12-10] MEDS: ATIVAN IV PRN (10:24)
[2019-12-10 10:39] LABS: UR CREAT RANDOM 20.4 mg/dL (14-26); UR PROT RANDOM 71.2 mg/dL
--- NOTE | 2019-12-10 13:45 | HEMO/ONC PROGRESS NOTE ---
DATE: 12/10/2019 CHIEF COMPLAINT: Intubated, sedated. OBJECTIVE: Vital Signs: Temp 97.8 degrees, blood pressure 168/68, heart rate 104, respirations 18, O2 saturation 97% on the ventilator. CV: S1, S2. Chest: Respirations nonlabored on ventilator. Abdomen: Nondistended. Extremities: No clubbing, cyanosis, or edema. LABORATORY DATA: Hemoglobin 8.6, hematocrit 26.7, white blood cell count 9.44, platelets 97,000. Sodium 149, potassium 3.7, chloride 108, CO2 is 20, BUN 56, creatinine 2.0, and glucose is 134. ASSESSMENT AND PLAN: 1. Diffuse large B-cell lymphoma, status post cycle 1 of RR-CHOP on 12/04/2019. We will hold further treatment until acute illness resolves. 2. Acute respiratory failure. Currently on ventilator per Pulmonology. 3. Diffuse bilateral infiltrates, on vancomycin and Zosyn. Coronavirus Disease 2019 testing negative. 4. Altered mental status. Continues to be difficult to assess as the patient is intubated and sedated. He does withdraw to pain. 5. We will follow along with you and make further recommendations pending outcomes. The above reflects the history, exam, assessment, and plan of Dr. Rangel. Dictated by RACHEL Simon for Stephen Rangel MD cc: RACHEL Simon MD
--- NOTE | 2019-12-10 13:50 | PROGRESS NOTE ---
DATE: 12/10/2019 SUBJECTIVE: The patient is resting comfortably. He is currently undergoing a weaning trial. Sedation is on hold. OBJECTIVE: Vital Signs: Temperature 97.8 degrees, blood pressure 168/68, heart rate 104, respirations 18, O2 saturation 97% on mechanical ventilator. Intake 1.4 L, output 3.3 L. General: This is a chronically ill-appearing elderly male currently on the ventilator. Heart: S1, S2 normal, tachycardic. Lungs: Coarse breath sounds bilaterally. Abdomen: Positive bowel sounds. Soft, nontender, nondistended. Extremities: Trace pedal edema. Neurologic: The patient is awake and alert. He is able to move all 4 extremities. LABORATORY DATA: White blood cell count 9.4, hemoglobin 8.6, hematocrit 26, platelets 97,000. Sodium 149, potassium 3.7, chloride 108, CO2 20, BUN 56, creatinine 2, glucose 134, magnesium 1.8,. AST 54, ALT 22. Chest x-ray shows worsening central and left basilar infiltrates. ASSESSMENT AND PLAN: 1. Acute hypoxemic respiratory failure. Multifactorial. The patient has a volume of pulmonary edema and pneumonia. Continue with weaning trial as directed by the spinner iron. The patient is negative for COVID 19. 2. Bilateral lobe pneumonia. The x-ray looks somewhat worse today, however the white blood cell count is coming down. We will continue on the current antibiotic regimen, bronchodilator therapy. The sputum culture showed no growth. 3. Volume overload with pulmonary edema. Continue with diuretic therapy as directed by the spinner iron. 4. Atrial fibrillation. The patient's heart rate is under better control. Continue on the current regimen as directed by the industrial gas servicer. 5. Adrenal insufficiency. Continue on hydrocortisone. 6. Thrombocytopenia. We will check a heparin-induced thrombocytopenia (HIT) assay since the patient is receiving heparin. D/C lovenox. 7. Diarrhea. We will check stool for Clostridium difficile. 8. Aortic stenosis status post bioprosthetic valve replacement. Aware. 9. 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 Oncology is following. 10. Acute kidney injury on chronic kidney disease. The BUN and creatinine are higher today, however the patient is receiving diuretic therapy. Continue to monitor closely. The patient has excellent urine output. 11. Hypernatremia. Will add free water flushes via the NG tube. 12. Gastrointestinal prophylaxis. Continue on Protonix. 13. Deep vein thrombosis prophylaxis. We will hold the heparin today due to thrombocytopenia. cc: Ethel Murrell MD MTDD
--- NOTE | 2019-12-10 18:59 | PULMONOLOGY PROGRESS NOTE ---
DATE: 12/10/2019 SUBJECTIVE: The patient is awake and alert. He will follow simple commands, but will not engage with the practitioner. He has been evaluated several times today and was deemed an acceptable candidate for extubation. He has tolerated extubation without difficulty. OBJECTIVE: Vital Signs: The patient has been afebrile for the last 24 hours. Blood pressure 153/77, heart rate 104, respiratory rate 22, oxygen saturation 98. HEENT: Pupils are equal and reactive. Oropharynx appears clear. Neck: Supple. Chest: Crackles bilaterally with slightly decreased breath sounds at left base. Cardiac: S1, S2. Abdomen: Soft. Extremities: 1+ peripheral edema. LABORATORIES: Chest x-ray reveals infiltrate/effusion at the left base. White blood count 9.44, hemoglobin 8.6, platelet count 97,000. Arterial blood gas reveals a pH 7.44, pCO2 of 32, pO2 of 86. IMPRESSION: A 64-year-old with: 1. Lymphoma, with extensive disease within the abdomen. 2. Acute hypoxemic respiratory failure. 3. Diffuse pulmonary infiltrates. 4. Altered mental status. 5. Renal failure. 6. Adrenal insufficiency. DISCUSSION: A 64-year-old with problems outlined above. He has been on a spontaneous breathing trial overnight, and extubation was delayed due to atrial fibrillation. His rate is now controlled. PLAN: 1. Extubation today. 2. Rate control per Cardiology. 3. No additional recommendations at this time. Time spent in critical care time: 32 minutes cc: Rajat Sanders MD MTDD
[2019-12-11] MEDS: ZOSYN 3.375 GM in NS 50 ML IV SCH ×4 (01:56→19:41)
[2019-12-11] MEDS: SOLU-CORTEF IV SCH ×3 (01:56→18:04)
[2019-12-11] MEDS: ATIVAN IV PRN ×2 (01:56→13:34)
[2019-12-11] MEDS: DUONEB (A & A) INH SCH ×2 (03:45→17:36)
[2019-12-11 04:37] LABS: ALLEN TEST YES; BE -0.7 mmoll (-3.0-3.0); BLOOD TYPE ARTERIAL; HCO3-(ACT) 24.4 mmoll (20.0-26.0); O2(CT) 12.9 mL/dL (15.0-23.0); PCO2(98.6) 30 mmHg (35-45); PO2(98.6) 109 mmHg (60-100); SAMPLE BLOOD; SAO2 98.5 % (95.0-100.0); THB 9.4 g/dL (11.5-17.4); pH(98.6) 7.48 (7.35-7.45)
[2019-12-11 04:38] LABS: MODALITY CANNULA
[2019-12-11 05:29] LABS: BASO# 0.01 X1000 (0.0-0.2); BASO% 0.8 % (0.0-0.8); HEMATOCRIT 28.9 % (42.0-52.0); IMM GRAN# 0.08 X1000 (0.0-0.04); IMM GRAN% 6.6 % (0.0-0.5); LYMPH# 0.21 X1000 (1.2-3.4); LYMPH% 17.2 % (20.5-51.1); MCH 28.6 PG (27-31); MCHC 31.1 g/dL (33-37); MCV 91.7 FL (81-99); MPV 11.6 FL (7.4-10.4); NEUT# 0.92 X1000 (1.4-6.5); NEUT% 75.4 % (42.2-75.2); PLT 72 X1000 (130-400); RBC 3.15 XMIL (4.7-6.1); RDW 15.6 % (11.5-14.5); WBC 1.22 X1000 (4.8-10.8)
[2019-12-11 05:33] LABS: ALB/GLOB RATIO 1.4; ALBUMIN 3.7 g/dL (3.5-5.0); CALCIUM 9.6 mg/dL (8.8-10.2); CREATININE 2.3 mg/dL (0.7-1.2); POTASSIUM 3.7 mmol/L (3.5-5.1); TOTAL BILIRUBIN 1.47 mg/dL (0.20-1.00); TOTAL PROTEIN 6.4 g/dL (6.3-8.3)
[2019-12-11] MEDS: LASIX IV SCH (06:04)
[2019-12-11] MEDS: CARDIZEM 100 MG/NS 100 MG/100 ML IVPB IV SCH ×3 (06:05→19:41)
--- NOTE | 2019-12-11 06:15 | Diag Imaging Result Doc PS360 ---
EXAM: CHEST-PORTABLE 12/11/2019 HISTORY: respiratory failure TECHNIQUE: AP portable at 0405 COMMENT: Compared to 12/10/2019 the opacity in the left lung has improved. There is still alveolar opacity in the inferior portion of the right upper lobe and the right lower lobe. IMPRESSION: Slightly improved pulmonary edema versus pneumonia. Electronically signed by Luis Antonio Hoffmann 12/11/2019 6:13 AM
[2019-12-11] MEDS: D5W 1,000 ML IV SCH ×2 (07:46→19:42)
[2019-12-11] MEDS: LOPRESSOR PO SCH ×3 (08:15→19:42)
[2019-12-11] MEDS ORDERED: VANCOMYCIN 1,300 MG in NS 250 ML IV SCH ×2 (09:44→12:00)
--- NOTE | 2019-12-11 10:52 | CARDIOLOGY PROGRESS NOTE ---
DATE: 12/11/2019 CHIEF COMPLAINT: Shortness of breath, irregular heartbeat. SUBJECTIVE: Mr. Moody was extubated yesterday. This morning, he is able to tell me who he is and he tells that is hungry. He is still confused. He is in sinus rhythm at this time. OBJECTIVE: Vital signs: Blood pressure is 164/98, pulse 126, respirations 28, temperature is 98.1 degrees. General: He is awake, follows simple commands and gives simple answers. HEENT: Unremarkable. Chest: Diminished breath sounds bilaterally. Heart: Sounds are regular and rhythmic without gallop or murmur. Abdomen: Nontender. Extremities: Showed palpable pulses, no edema. Neurologic exam: He is following simple commands. He communicates. He is hungry. BLOOD WORK: Today, sodium 151, potassium 3.7, BUN 68, creatinine 2.3. His white cell count today is down to 1220, hemoglobin is 9.0, hematocrit 28.9, platelet count is down to 72,000. IMPRESSION: 1. Patient who presented with acute hypoxemic respiratory failure, suspected pulmonary edema, probably a combination of cardiogenic and noncardiogenic edema. Suspecting pneumonia. 2. Paroxysmal atrial fibrillation. 3. History of aortic valve replacement with a bioprosthetic valve. 4. Coronary atherosclerosis. 5. B-cell lymphoma of the large-cell type. 6. Pancytopenia. 7. History of hepatitis C with porphyria cutanea tarda. 8. Ixknt-tr-jvaxepd renal failure. 9. Hypernatremia indicating water deficit/dehydration. RECOMMENDATIONS: At this time because of his blood pressure is elevated, I am going to add some beta-blockers low-dose. We probably need to stop bronchodilators since the patient is not wheezing. I would suggest to continue administration of water to balance his sodium. Hematology needs to continue to follow him because of the pancytopenia. Cardiac-luna, I think he is stabilizing. His echocardiographic study from 12/07 showed normal left ventricular ejection fraction. We will follow his hospital course. cc: Warren Scott MD
--- NOTE | 2019-12-11 11:08 | PROGRESS NOTE ---
DATE: 12/11/2019 SUBJECTIVE: The patient is awake and alert. He states that he feels okay. No acute events noted overnight. The patient continues to have gross hematuria in his Moreno. OBJECTIVE: Vital Signs: Temperature 98.6 degrees, blood pressure 172/92, heart rate 104, respirations 19, O2 saturation is 98% on 3 L nasal cannula. Intake 1.1 L, output 2.9 L. General: This is a chronically ill-appearing, elderly male lying in bed, in no acute distress. Heart: S1, S2 normal. Irregularly irregular rhythm. Lungs: Equal air entry with crackles bilaterally. Abdomen: Positive bowel sounds. Soft, nontender, nondistended. Extremities: There is 1+ edema bilaterally. Neurologic: The patient is alert and oriented x3. Labs: White blood cell count 1.2, hemoglobin 9, hematocrit 28, platelets 72,000. ABG, pH of 7.48, pCO2 of 30, PO2 of 109. Bicarb 24. Sodium 151, potassium 3.7, chloride 111, CO2 of 20, BUN 68, creatinine 2.3, glucose 146. Chest x-ray shows improved pulmonary edema versus pneumonia. ASSESSMENT AND PLAN: 1. Acute hypoxemic respiratory failure. Multifactorial. The patient is being treated for pulmonary edema and pneumonia. Continue with the current treatment regimen as directed by the hematology technologist. 2. Bilateral lobe pneumonia. Continue with broad-spectrum antibiotics, bronchodilator therapy, and supplemental oxygen. So far, the blood and sputum cultures are negative. 3. Acute kidney injury on chronic kidney disease. The patient's BUN and creatinine have increased. However, the patient is on diuretic therapy. The patient has excellent urine output. Will consult nephrology. Will also check a renal ultrasound. 4. Atrial fibrillation. Continue on the Cardizem drip. Cardiology has adjusted the patient's oral medications. 5. Pancytopenia. The patient's ANC is now 900. Will defer to the oncologist. 6. Thrombocytopenia. Worse. We will defer to the oncologist. 7. Volume overload with pulmonary edema. Slowly improving. The patient is on Lasix. 8. Adrenal insufficiency. Continue on hydrocortisone. 9. Aortic stenosis s/p prosthetic valve replacement. Aware. 10. 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 Chemo is on hold. Oncology is following. 11. Hypernatremia. Worse. We will start the patient on D5W. Continue with free water flushes via the nasogastric tube. 12. s/p right ureteral stent secondary to right hydronephrosis with urethral dilation. The patient is having gross hematuria. Will consult urology. 13. Immunoglobulin deficiency. Aware. 14. Gastrointestinal prophylaxis. Continue on Protonix. cc: Ethel Murrell MD MTDD
[2019-12-11] MEDS ORDERED: GRANIX SUBQ SCH (11:30)
[2019-12-11] MEDS: DUONEB (A & A) INH PRN ×2 (11:39→16:09)
[2019-12-11 18:15] LABS: URINE SOURCE CATH
[2019-12-11 18:44] LABS: BILIRUBIN URINE NEGATIVE (NEGATIVE); BLOOD URINE LARGE (NEGATIVE); COLOR BROWN; GLUCOSE URINE TRACE mg/dL (NEGATIVE); KETONE URINE NEGATIVE (NEGATIVE); LEUKOCYTES URINE SMALL (NEGATIVE); NITRITE URINE NEGATIVE (NEGATIVE); PROTEIN URINE 100 mg/dL (NEGATIVE); SP GRAVITY URINE 1.015; TURBIDITY URINE TURBID (CLEAR); UR EPITHELIAL CELLS <10 /HPF (<10); URINE BACTERIA NEGATIVE /HPF; URINE RBC TNTC /HPF (<10); URINE WBC <10 /HPF (<10); UROBILINOGEN URINE NORMAL (NORMAL)
[2019-12-11 18:45] LABS: UR CREAT RANDOM 33.7 mg/dL (14-26); UR PROT RANDOM 353.7 mg/dL
--- NOTE | 2019-12-11 18:53 | Diag Imaging Result Doc PS360 ---
US RENAL 2 (RETROPER) COMPLETE - 12/11/2019 INDICATION: willard/arf TECHNIQUE: COMPARISON: 06/19/2011 FINDINGS: The left kidney is obscured. There are several shadowing echogenicities in the right renal collecting system. These are large. These measure up to 2 cm. No hydronephrosis. No visible free fluid. The right kidney measures 14.5 x 6.8 x 7.1 cm. There is a Moreno catheter in the urinary bladder. IMPRESSION: 1. The left kidney is obscured. 2. Large stones in the right kidney, but no hydronephrosis. Electronically signed by Dwight Pandey 12/11/2019 6:51 PM
[2019-12-11 18:54] LABS: URINE CASTS NONE SEEN; URINE CRYSTALS URIC ACID PRESENT; URINE SMALL ROUND CELLS NONE SEEN; URINE YEAST NONE SEEN
--- NOTE | 2019-12-11 19:27 | NEPHROLOGY CONSULTATION ---
DATE: 12/11/2019 REASON FOR CONSULTATION: Acute kidney injury. HISTORY OF PRESENT ILLNESS: Mr. Moody is a 64-year-old man who is really not able to relate his history to me. He has been in the hospital since 12/06/2019. He has a history of diffuse large B-cell lymphoma, as well as PCP, thrombocytopenia. He had recent port placed in the right upper chest and received his first cycle of RR-CHOP on 12/04/2019. Since that time, he had progressively declining status with weakness, fatigue, shortness of breath, low intake, etc. He presented to the emergency room and was acutely ill and required intubation. His initial laboratory data disclosed a creatinine of 2.7. He was treated with diuretics for pulmonary edema that was both cardiogenic and noncardiogenic. In this context, he had progressive improvement in his creatinine from 2.7 on presentation to a candy of 1.7 on 12/09/2019. Since that time, his creatinine has begun to rise again, 2.3 today. He is net negative 10 L since admission. He is tachycardic. He has not had any hypotension. He has not received any intravenous contrast and no overtly nephrotoxic medications except for the combination of vancomycin with Zosyn. His chest x- ray is still being read as "slightly improved pulmonary edema versus pneumonia". He is not able to talk to me. PAST MEDICAL HISTORY: As above. CURRENT MEDICATIONS: Include Diprivan, vancomycin, Zosyn, Ativan, Cardizem, Levophed, Solu- Cortef, Lopressor, Tylenol, furosemide, D5W, DuoNeb. ALLERGIES: None. SOCIAL HISTORY: As listed in the chart. FAMILY HISTORY: As listed in the chart. REVIEW OF SYSTEMS: As listed in the chart. OBJECTIVE: Vital Signs: Blood pressure 142/81, heart rate 109, respirations 25, afebrile. General: No acute distress. Again very withdrawn, confused. Skin: Dry. Oropharynx: Dry. Neck: Neck veins are not visible. Trachea is midline. Heart: Regular. No gallops. Lungs: Have decreased breath sounds. No crackles or wheezes are audible. Abdomen: Soft, nontender. Bowel sounds are present. Diminished bowel sounds. No organomegaly. Extremities: No edema, clubbing, or cyanosis. IMPRESSION: Acute kidney injury. I would expect this is related to diuretic therapy and aggressive diuretic use. Given that it is 5:30 in the evening, I will not start intravenous fluids, but I will hold his diuretic for this evening. Re-evaluate in the morning and possibly give intravenous fluids. No changes are needed in his medications. Will follow with you. cc: Ángel Cunningham MD
--- NOTE | 2019-12-11 19:34 | PULMONOLOGY PROGRESS NOTE ---
DATE: 12/11/2019 SUBJECTIVE: The patient is awake and alert. He appears to be confused and disoriented. He has no increased work of breathing. OBJECTIVE: Vital Signs: The patient has been afebrile for the last 24 hours. Blood pressure 157/93, heart rate 97, respiratory rate 23, oxygen saturation 97% on nasal cannula. HEENT: Pupils are equal and reactive. Oropharynx appears clear. neck: Neck is supple. pulmonary: Chest reveals crackles bilaterally. Cardiac: S1-S2. Abdomen: Abdomen is soft. Extremities: Extremities are without edema. LABORATORIES AND DATA: Microbiology: Sputum culture reveals sparse growth. Chest x-ray reveals decreased edema/pneumonia. White blood count 1.22, hemoglobin 9.0, platelet count 72,000. Sodium 151, potassium 3.7, chloride 111, bicarbonate 20, BUN 68, creatinine 2.3. IMPRESSION: A 64-year-old with: 1. Acute hypoxemic respiratory failure. 2. Diffuse bilateral infiltrates with partial clearing with diuresis. 3. Lymphoma with extensive disease in the abdomen. 4. Adrenal insufficiency. 5. Renal failure. 6. Altered mental status. DISCUSSION: A 64-year-old with problems outlined above. The patient appears to be doing well although he does appear disoriented. PLAN: 1. Continue rate control for atrial fibrillation/rapid ventricular response as outlined by Cardiology team. 2. Continue current antibiotic regimen. 3. Continue bronchial hygiene. 4. Overall prognosis is guarded. cc: Rajat Sanders MD
[2019-12-12] MEDS: ATIVAN IV PRN ×3 (00:59→20:53)
[2019-12-12] MEDS: SOLU-CORTEF IV SCH ×3 (02:26→19:42)
[2019-12-12] MEDS: LOPRESSOR PO SCH ×4 (02:26→19:43)
[2019-12-12] MEDS: ZOSYN 3.375 GM in NS 50 ML IV SCH ×3 (02:26→14:54)
[2019-12-12 05:10] LABS: ALLEN TEST YES; BE -0.7 mmoll (-3.0-3.0); BLOOD TYPE ARTERIAL; HCO3-(ACT) 24.4 mmoll (20.0-26.0); O2(CT) 13.3 mL/dL (15.0-23.0); O2HB 95.9 % (95.0-99.0); PCO2(98.6) 33 mmHg (35-45); PO2(98.6) 87 mmHg (60-100); SAMPLE BLOOD; SAO2 97.4 % (95.0-100.0); THB 9.8 g/dL (11.5-17.4); pH(98.6) 7.45 (7.35-7.45)
[2019-12-12 05:12] LABS: MODALITY CANNULA
[2019-12-12 05:19] LABS: ALB/GLOB RATIO 1.7; CREATININE 2.1 mg/dL (0.7-1.2); POTASSIUM 3.1 mmol/L (3.5-5.1); TOTAL BILIRUBIN 1.94 mg/dL (0.20-1.00); TOTAL PROTEIN 6.3 g/dL (6.3-8.3)
[2019-12-12 05:23] LABS: BASO% 8.1 % (0.0-0.8); HEMATOCRIT 29.5 % (42.0-52.0); HEMOGLOBIN 9.4 g/dL (14.0-18.0); MCH 28.9 PG (27-31); MCHC 31.9 g/dL (33-37); MCV 90.8 FL (81-99); MPV 11.3 FL (7.4-10.4); PLT 49 X1000 (130-400); RBC 3.25 XMIL (4.7-6.1); RDW 15.1 % (11.5-14.5)
[2019-12-12] MEDS: CARDIZEM 100 MG/NS 100 MG/100 ML IVPB IV SCH ×3 (05:33→22:11)
[2019-12-12] MEDS: LASIX IV SCH (06:28)
[2019-12-12 06:33] LABS: LYMPHS 60 % (21-51); SEGS 40 % (42-75); WBC 0.37 X1000 (4.8-10.8)
--- NOTE | 2019-12-12 06:46 | Diag Imaging Result Doc PS360 ---
CHEST-PORTABLE - 12/12/2019 INDICATION: respiratory failure COMPARISON: 12/11/2019 FINDINGS: Stable right chest port in good position. Heart size and pulmonary vascularity is normal. There has been significant improvement in the bibasilar infiltrates/edema. No significant pleural effusion at this time. IMPRESSION: Improvement in the bilateral infiltrates/edema. Electronically signed by Dwight Pandey 12/12/2019 6:43 AM
[2019-12-12] MEDS: GRANIX SUBQ SCH ×2 (10:00→20:53)
[2019-12-12] MEDS: D5W 1,000 ML IV SCH ×2 (10:21→22:11)
--- NOTE | 2019-12-12 10:45 | CARDIOLOGY PROGRESS NOTE ---
DATE: 12/12/2019 CHIEF COMPLAINT: Irregular heartbeat, shortness of breath. SUBJECTIVE: Mr. Moody remains in sinus rhythm. He is still very confused, however, he is not in distress. He follows simple commands. OBJECTIVE: Vital signs: Temperature today is 98.1 degrees, pulse 99, respirations 19, blood pressure 160/72. General: The patient is awake, however, he seems to be confused trying to get out of bed at times. He is not in distress. HEENT: I do not see significant jugular venous distention. Chest: Diminished breath sounds diffusely. Heart: Sounds are regular with extrasystoles. I do not hear any gallop or murmur. Abdomen: Nontender. Extremities: Showed no edema. He does have good pulses. BLOOD WORK: Today, his white cell count is 370 cells per cubic millimeter. Hemoglobin is 9.4, platelet count 49,000. His blood gases on 2 L nasal cannula, pH 7.45, pO2 87, pCO2 33. Sodium 154, potassium 3.1, BUN 69, creatinine 2.1. His albumin is 4.0. Magnesium was checked 2 days, it was 1.8. IMPRESSION: 1. Patient who presented with hypoxemic respiratory failure. That has improved. 2. Paroxysmal atrial fibrillation. He has converted to sinus rhythm. 3. Hypernatremia. The patient has a water deficit. His chest x-ray today shows that the infiltrates have improved. 4. Severe pancytopenia with severe absolute neutropenia, thrombocytopenia. The patient is status post chemotherapy for lymphoma first course. 5. Suspect pneumonia that has improved. 6. History of hepatitis C with porphyria cutanea tarda. 7. Ykbxw-yr-hwvendd renal failure. 8. Status post aortic valve replacement with a bioprosthetic valve and coronary atherosclerosis. RECOMMENDATIONS: At this time, I would continue beta-blockers as we are doing with IV Cardizem. I would not make any changes until his sodium and his white cell count start to normalize. He really needs to have a more aggressive infusion of water. 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 I do not know if on top of that he may have diabetes insipidus, however, the presence of hypernatremia is suggestive of that. I will talk to the Hospitalist about it. cc: Warren Scott MD MTDD
[2019-12-12 11:22] LABS: LYMPH% 77.1 % (20.5-51.1)
[2019-12-12 11:23] LABS: EOS% 8.6 % (0.0-10.0); MONO% 2.9 % (1.7-9.3); NEUT# 0.02 X1000 (1.4-6.5)
[2019-12-12 11:24] LABS: BASO# 0.02 X1000 (0.0-0.2); EOS# 0.03 X1000 (0.0-0.7); LYMPH# 0.27 X1000 (1.2-3.4); MONO# 0.01 X1000 (0.11-0.59)
[2019-12-12 11:26] LABS: NEUT% 5.7 % (42.2-75.2)
[2019-12-12] MEDS ORDERED: KLOR-CON PO ONE ×2 (11:34→11:37)
--- NOTE | 2019-12-12 12:38 | NEPHROLOGY PROGRESS NOTE ---
DATE: 12/12/2019 SUBJECTIVE: He is more alert today and looks at me, but his speech is still very difficult to understand. OBJECTIVE: Vital Signs: Blood pressure 145/83, heart rate 90, and respirations 22. Intake 2.9 L. Output 2 L. General: No acute distress. Skin: Warm and dry. Neck: Neck veins are not distended. Her oropharynx is dry. Heart: Regular. Tachycardic. Lungs: Equal. No crackles or wheezes. Abdomen: Soft and nontender. Bowel sounds are present. Extremities: No edema, clubbing, or cyanosis. IMPRESSION: Acute kidney injury. Creatinine has been essentially stable since hospital day 2. No old data in the computer system. He has ongoing gross hematuria. Renal ultrasound was not a complete study. Left kidney was "obscured". Several echo densities on the right. He had urethral dilation cystoscopy and right ureteral stenting performed on 11/21/2019. Dr. Murrell has consulted Dr. Shine to follow up given his ongoing hematuria. We will CT abdomen. Continue his IV fluids for now. He is developing hypernatremia so I will adjust the content of his fluids. cc: Ángel Cunningham MD
[2019-12-12] MEDS: POTASSIUM CHLORIDE 20 MEQ/SWI 20 MEQ/100 ML IVPB IV SCH ×2 (12:48→14:54)
--- NOTE | 2019-12-12 12:54 | Diag Imaging Result Doc PS360 ---
EXAM: CT ABDOMEN/PELVIS W/O CONTRAST 12/12/2019 HISTORY: LUCAS presumed. Hx R ureteral obstruction w stent TECHNIQUE: This exam was performed using automated exposure control, adjustment of mA or kV according to patient size, and/or use of iterative reconstruction technique. COMMENT: There are fairly large bilateral pleural effusions which were not present at the time the previous study of 12/23/2018. There is compressive atelectasis in both lower lobes. The spleen is actually smaller than it was previously now measuring 11.2 cm. The adrenal glands are not enlarged. There are no apparent gallstones. The liver is grossly normal in appearance. There is a markedly atrophic renal remnant on the left which actually appears slightly larger than it did at the time the previous study. It now measures almost 13 mm transversely compared to 7 mm previously. The right kidney is also enlarged, measuring over 14 cm in superior-inferior dimension compared to 10.8 cm of the time the previous study. There is a stent in place and some hyperdense material in the collecting system. The last retrograde pyelogram on record was on 11/21/2019. There is perinephric stranding particularly over the lower pole laterally. This was not the case previously. There are is gas throughout the transverse and ascending colon and there are distended gas containing small bowel loops. The aorta is partially calcified but not particularly distended. The appendix is normal in appearance. There is fluid in the rectosigmoid colon including the rectum. There is a Moreno catheter in the bladder. There has been previous prostatectomy. There are some degenerative disc changes in the lumbar spine particularly at the L5-S1 level. IMPRESSION: Enlargement of the right kidney and left renal remnant, perinephric stranding on the right. This may be related to pyelonephritis. Ileus. The possibility of enterocolitis cannot be excluded. Electronically signed by Luis Antonio Hoffmann 12/12/2019 12:52 PM
--- NOTE | 2019-12-12 14:14 | HEMO/ONC PROGRESS NOTE ---
DATE: 12/12/2019 CHIEF COMPLAINT: Extubated, on nasal cannula, in no acute distress. SUBJECTIVE: The patient is quite confused at this time. OBJECTIVE: Vitals: Temperature 98.7 degrees, blood pressure 145/83, heart rate 90, respirations 22, O2 saturation 98% on nasal cannula O2. CV: S1, S2. Respiratory: Respirations nonlabored. Abdomen: Nondistended. Extremities: No clubbing, cyanosis, or edema. Neurologic: The patient is awake. He is oriented to name only. He has no overt focal deficit. LABORATORY DATA: Hemoglobin 9.4, hematocrit 29.5, white blood cell count is 0.37, platelets 49,000. ANC is currently is 0.02. Sodium 154, potassium 3.1, chloride 114, CO2 23, BUN 69, creatinine 2.1, and glucose is 165. ASSESSMENT AND PLAN: 1. Diffuse large B-cell lymphoma, status post cycle 1 of R-CHOP on 12/04/2019. We will hold further treatment until the patient's acute illness resolves. 2. Acute respiratory failure. The patient is currently extubated, wearing nasal cannula O2, with an oxygen saturation in the upper 90s. 3. Diffuse bilateral infiltrates, currently on vancomycin and Zosyn, improving. COVID-19 testing was negative. 4. Altered mental status persists, of questionable etiology. 5. New problem, neutropenia. White blood cell count and ANC have decreased. As the patient was treated with chemotherapy on 12/04/2019 the patient is currently receiving Granix 480 mcg b.i.d. We will provide neutropenic precautions. 6. Anemia. Hemoglobin is currently 9.4. Would transfuse packed red blood cells if hemoglobin drops below 8.0 or in the setting of active bleeding. 7. Thrombocytopenia. Platelet count is currently 49,000. Would continue to monitor and transfuse platelets if platelet count drops below 20,000 or in the setting of active bleeding. The above reflects the history, examination, assessment, and plan of Dr. Rangel. Dictated by RACHEL Simon for Stephen Rangel MD cc: RACHEL Simon MD
[2019-12-12] MEDS: DUONEB (A & A) INH PRN (15:47)
--- NOTE | 2019-12-12 16:07 | CONSULTATION ---
DATE OF CONSULTATION: 12/12/2019 CONSULT PHYSICIAN: Dr. Murrell with hospitalist service. Consultation for gross hematuria. HISTORY OF PRESENT ILLNESS: A 64-year-old male that is known to me secondary history of prostate cancer and low testosterone. Most recently he was seen in my office after being diagnosed with diffuse large B-cell lymphoma and having evidence of PET-CT scan revealing hydronephrosis and obstruction of his solitary right kidney. He underwent cystoscopy with right retrograde pyelogram and placement of 6-Vietnamese 24 cm ureteral stent on 11/21/2019. The patient was admitted to the hospital on 12/06/2019 secondary to shortness of breath and hypoxemia. He was intubated in ICU, but is currently extubated. He has been confused. There was report of blood in the urine in the Moreno catheter. There were no clots noted. There is no report of patient being uncomfortable in his flank. PAST MEDICAL HISTORY: Thrombocytopenia, prostate cancer, diffuse large B-cell lymphoma, neuropathy, hyperlipidemia, GERD, solitary kidney, hypertension, diabetes mellitus. PAST SURGICAL HISTORY: Robotic prostatectomy in 2004, wisdom teeth extraction, tonsillectomy. ALLERGIES: No known drug allergies. HOME MEDICATIONS: Zofran, pravastatin, Robaxin, Ambien, irbesartan- hydrochlorothiazide, pregabalin, metoprolol, lansoprazole. FAMILY HISTORY: Negative for malignancies. SOCIAL HISTORY: Denies tobacco, alcohol, drug use. REVIEW OF SYSTEMS: Unobtainable secondary to patient's altered mental status. PHYSICAL EXAMINATION: T 98.7 degrees, P 102, BP 148/67.General: Disoriented appearing male but in no acute distress during rounds. HEENT: Normocephalic, atraumatic. Cardiovascular: Tachycardic, regular rhythm. Pulmonary: Bilateral breath sounds. Abdomen: Soft, nontender, nondistended. Back: No CVA tenderness. : Bladder nontender to palpation. Normal external male genitalia. Moreno catheter in place draining urine with red sediment in it. Dermatologic: No obvious skin rashes. Neurologic: Alert and oriented x1. PERTINENT LABS: His white cell count is 0.4, hematocrit is 29, platelet count is 49,000. His creatinine is 2.1. PERTINENT IMAGING: Renal ultrasound on 12/11/2019 with report of large stones in the right kidney, but no evidence of hydronephrosis. ASSESSMENT/PLAN: 64-year-old male with a solitary right kidney, recent diagnosis of diffuse B- cell lymphoma, who had obstruction of his right kidney and underwent ureteral stent placement 3 weeks ago. His creatinine has actually improved as it was into the 4 range immediately post stenting. I personally reviewed the renal ultrasound images and the shadowing that was described as possible large stones as actually from the stent. He had a retrograde pyelogram on November 21, 2019 and there were no stones, no filling defects. His hematuria very likely is secondary to thrombocytopenia. His urine culture showed no growth x2, and hence it is unlikely to be related to a UTI. Ureteral stent can sometimes cause irritation and rarely cause hematuria, but again in his case, it was likely secondary to his platelets dropping. There is no evidence of acute blood loss anemia and hence, I would recommend conservative approach with monitoring his urine output and hydration as allowed. He would certainly not be a candidate for cystoscopy as his prognosis is guarded and there will be unlikely a definitive source of bleeding and likely will be just from the bladder mucosal irritation from the stent. PLAN: 1. Recommend keeping Moreno catheter while he is in ICU, and the ins and outs are monitored. His hematuria should resolve as his platelets improve. 2. No urologic intervention needed at this time. 3. Please call if there are questions. 4. Thank you for the consultation. cc: Kevin Shine MD MTDD
--- NOTE | 2019-12-12 17:55 | PROVIDER PROGRESS NOTE ---
Progress Note Dr. Bay Progress Note/Pulmonary and or critical care Subjective: Patient was extubated yesterday. He is currently on NC 2L with no acute distress noted. He appears confused at times during my encounter. Input was appreciatedfrom Dr. Reno and other teams on the case. Objective: Vital Signs: T 98.7 (No fever in last 24 hours), PA 90, RR 22, BP 145/83 and SaO2 98% on NC 2L. I/O +925 ml. Physical Examination: General: Lying in bed with no acute distress noted. HEENT: Normocephalic. Atraumatic. Trachea midline. Mucosa pink and moist. PERRL. Oropharynx clear. Chest: Even and unlabored. Symmetrical excursion. Auscultation reveals inspiratory crackles bilaterally. CVS: Mild tachycardia. S1 and S2 appreciated. Abdomen: Soft. Nontender. Nondistended. Bowel sounds present in all 4 quadrants. Extremities: No edema. No cyanosis. No clubbing. Neuro: Awake and alert with confusion noted. Answer simple questions appropriately. Follow simple commands. Labs and Radiology: Laboratory Results 12/11/19 12/11/19 12/11/19 18:00 18:00 18:00 WBC RBC Hgb Hct MCV MCH MCHC RDW Std Deviation Plt Count MPV Immature Gran % (Auto) Neut % (Auto) Lymph % (Auto) [place] % (Auto) Eos % (Auto) Baso % (Auto) Immature Gran # (Auto) Neut # (Auto) Lymph # (Auto) [place] # (Auto) Eos # (Auto) Baso # (Auto) Segmented Neutrophils Lymphocytes Specimen Type Sample Site pH pCO2 pO2 HCO3 Base Excess Oxyhemoglobin ABG O2 Sat (Calculated) ABG O2 Saturation ABG Carboxyhemoglobin ABG Methemoglobin Ben Test A-a O2 Difference Total Hemoglobin Lactate Liter Flow Blood Gas Modality FiO2 % Sodium Potassium Chloride Carbon Dioxide Anion Gap BUN Creatinine Estimated GFR/1.73 m2 BUN/Creatinine Ratio Glucose Calculated Osmolality Calcium Total Bilirubin AST ALT Alkaline Phosphatase Ammonia Total Protein Albumin Globulin Albumin/Globulin Ratio Urine Source CATH Urine Color BROWN Urine Turbidity TURBID Urine pH 6.0 Ur Specific [place] 1.015 Urine Protein 100 A Ur Glucose (Stick) TRACE Ur Ketones (Stick) NEGATIVE Urine Blood LARGE A Urine Nitrite NEGATIVE Urine Bilirubin NEGATIVE Urobilinogen Dipstick NORMAL Urine Leukocytes SMALL A Urine WBC (Auto) <10 Urine RBC (Auto) TNTC A U Epithel Cells (Auto) <10 Urine Bacteria (Auto) NEGATIVE Ur Eosinophil Smear NONE SEEN Urine Crystals URIC ACID PRESENT Small Round Cells NONE SEEN Urine Casts NONE SEEN Urine Yeast-like Cells NONE SEEN Ur Random Creatinine 33.7 H U Random Total Protein 353.7 Ur Random Sodium 72 Ur Random Urea Nitrogn 12/12/19 12/12/19 12/12/19 04:30 04:30 04:30 WBC 0.37 L RBC 3.25 L Hgb 9.4 L Hct 29.5 L MCV 90.8 MCH 28.9 MCHC 31.9 L RDW Std Deviation 15.1 H Plt Count 49 L D MPV 11.3 H Immature Gran % (Auto) 0.0 Neut % (Auto) 5.7 L Lymph % (Auto) 77.1 H [place] % (Auto) 2.9 Eos % (Auto) 8.6 Baso % (Auto) 8.1 H Immature Gran # (Auto) 0.00 Neut # (Auto) 0.02 L* Lymph # (Auto) 0.27 L [place] # (Auto) 0.01 L Eos # (Auto) 0.03 Baso # (Auto) 0.02 Segmented Neutrophils 40 L Lymphocytes 60 H Specimen Type Sample Site pH pCO2 pO2 HCO3 Base Excess Oxyhemoglobin ABG O2 Sat (Calculated) ABG O2 Saturation ABG Carboxyhemoglobin ABG Methemoglobin Ben Test A-a O2 Difference Total Hemoglobin Lactate Liter Flow Blood Gas Modality FiO2 % Sodium 154 H Potassium 3.1 L D Chloride 114 H Carbon Dioxide 23 L Anion Gap 17 BUN 69 H Creatinine 2.1 H Estimated GFR/1.73 m2 32 BUN/Creatinine Ratio 33 Glucose 165 H Calculated Osmolality 329 Calcium 10.0 Total Bilirubin 1.94 H AST 67 H ALT 68 H Alkaline Phosphatase 102 Ammonia 24 Total Protein 6.3 Albumin 4.0 Globulin 2.3 Albumin/Globulin Ratio 1.7 Urine Source Urine Color Urine Turbidity Urine pH Ur Specific [place] Urine Protein Ur Glucose (Stick) Ur Ketones (Stick) Urine Blood Urine Nitrite Urine Bilirubin Urobilinogen Dipstick Urine Leukocytes Urine WBC (Auto) Urine RBC (Auto) U Epithel Cells (Auto) Urine Bacteria (Auto) Ur Eosinophil Smear Urine Crystals Small Round Cells Urine Casts Urine Yeast-like Cells Ur Random Creatinine U Random Total Protein Ur Random Sodium Ur Random Urea Nitrogn 12/12/19 12/12/19 05:00 05:35 WBC RBC Hgb Hct MCV MCH MCHC RDW Std Deviation Plt Count MPV Immature Gran % (Auto) Neut % (Auto) Lymph % (Auto) [place] % (Auto) Eos % (Auto) Baso % (Auto) Immature Gran # (Auto) Neut # (Auto) Lymph # (Auto) [place] # (Auto) Eos # (Auto) Baso # (Auto) Segmented Neutrophils Lymphocytes Specimen Type ARTERIAL Sample Site R RADIAL pH 7.45 pCO2 33 L pO2 87 HCO3 24.4 Base Excess -0.7 Oxyhemoglobin 95.9 ABG O2 Sat (Calculated) 13.3 L ABG O2 Saturation 97.4 ABG Carboxyhemoglobin 1.40 ABG Methemoglobin 0.0 Ben Test YES A-a O2 Difference 71.0 Total Hemoglobin 9.8 L Lactate 1.70 Liter Flow 2.0 Blood Gas Modality [place] FiO2 % 28.0 Sodium Potassium Chloride Carbon Dioxide Anion Gap BUN Creatinine Estimated GFR/1.73 m2 BUN/Creatinine Ratio Glucose Calculated Osmolality Calcium Total Bilirubin AST ALT Alkaline Phosphatase Ammonia Total Protein Albumin Globulin Albumin/Globulin Ratio Urine Source Urine Color Urine Turbidity Urine pH Ur Specific [place] Urine Protein Ur Glucose (Stick) Ur Ketones (Stick) Urine Blood Urine Nitrite Urine Bilirubin Urobilinogen Dipstick Urine Leukocytes Urine WBC (Auto) Urine RBC (Auto) U Epithel Cells (Auto) Urine Bacteria (Auto) Ur Eosinophil Smear Urine Crystals Small Round Cells Urine Casts Urine Yeast-like Cells Ur Random Creatinine U Random Total Protein Ur Random Sodium Ur Random Urea Nitrogn 697 Assessment: Acute hypoxemic respiratory failure. Improving. Intubated between 12/06/19 to 12/10/19. Diffuse bilateral infiltrates with partial clearing with diuresis. CXR this morning shows improvement in the bilateral infiltrates/edema. Lymphoma with extensive disease in the abdomen. Adrenal insufficiency. Acute renal failure with electrolyte abnormality and AG metabolic acidosis. Altered mental status. Atrial fibrillation with RVR. Pancytopenia. Plan: Continue supplemental oxygen. We titrated oxygen to patients needs per clinical protocols. We will monitor patients response closely and adjust accordingly. Continue rate control for atrial fibrillation with RVR as outlined by Cardiology. Continue current antibiotic regimen including Vancomycin and Zosyn. We monitor patients clinical and lab response closely. Continue bronchial hygiene. Continue IV Solu-Cortef. Continue GI and DVT prophylaxis. Advance diet as tolerated. Total evaluation time in minutes: 32.
--- NOTE | 2019-12-12 18:04 | PROGRESS NOTE ---
DATE: 12/12/2019 SUBJECTIVE: The patient was noted to be confused. He keeps trying to get out of bed. He is only oriented to himself. He is not eating well. OBJECTIVE: Vital Signs: Temperature 98.8 degrees, blood pressure 140/85, heart rate 98, respirations 22, O2 saturations 94% on 3 L nasal cannula. Intake 2.8 L. Output 1.9 L. General: This is a chronically ill-appearing, elderly male lying in bed in no acute distress. Heart: S1, S2 normal. Irregularly irregular rhythm. Lungs: Coarse breath sounds. Abdomen: Positive bowel sounds. Soft, nontender, nondistended. Extremities: 1+ edema bilaterally. Neurologic: The patient is oriented to self. He is able to move all 4 extremities. LABORATORIES: White blood cell count 0.3, hemoglobin 9.4, hematocrit 29, platelets 489,000, sodium 154, potassium 3.1, chloride 114, CO2 23, BUN 69, creatinine 2.1, glucose 165, calcium 10, total bilirubin 1.9, AST 67, ALT 68, alkaline phosphatase 102. IMAGING: CT of the abdomen and pelvis reveals enlargement of the right kidney and left renal remnant. Perinephric stranding on the right. The possibility of enterocolitis cannot be excluded. ASSESSMENT AND PLAN: 1. Acute hypoxemic respiratory failure status post extubation. The patient is currently on nasal cannula. Continue with pulmonary toiletry as well as bronchodilator therapy. Pulmonary is following. 2. Acute pulmonary edema. Unchanged. The patient is on diuretic therapy. 3. Bilateral infiltrates. The patient is receiving broad-spectrum antibiotics. We will check a procalcitonin. 4. Atrial fibrillation with rapid ventricular response. The patient is currently on a Cardizem drip. Continue on Lopressor as directed by the directory operator. 5. Neutropenia status post chemo. The patient is on Granix and neutropenic precautions. 6. Thrombocytopenia. Likely secondary to the patient's recent chemotherapy. Continue to monitor closely. We will transfuse if the platelet count drops to 20,000. The patient is having gross hematuria. The patient may require platelets tomorrow. Continue to monitor the hemoglobin and hematocrit closely. Continue to monitor the platelet count closely. 7. Hypernatremia. Continue on D5W. 8. Hypokalemia. We will replace the patient's potassium. 9. Immunoglobulin deficiency. Aware. 10. Metabolic encephalopathy. Multifactorial. We will check a head CT. This may be secondary to the patient's multiple medical issues. If there is no improvement this weekend, we will plan to consult with Neurology. 11. Possible right pyelonephritis. Continue with antibiotic therapy. 12. Acute kidney injury. Unchanged. The patient has excellent urine output. We will continue to avoid nephrotoxic agents. Nephrology is following. 13. Adrenal insufficiency. The patient is on Solu-Cortef, we will likely need to transition this to oral steroid therapy tomorrow. cc: Ethel Murrell MD
[2019-12-12 18:38] LABS: ALBUMIN 3.9 g/dL (3.5-5.0); PHOSPHORUS 3.4 mg/dL (2.7-4.5); POTASSIUM 3.4 mmol/L (3.5-5.1)
[2019-12-12] MEDS: ZYVOX 600 MG/D5W 600 MG/300 ML IVPB IV SCH (19:10)
[2019-12-12] MEDS: MAXIPIME 1 GM in NS 50 ML IV SCH (22:11)
[2019-12-13] MEDS: LOPRESSOR PO SCH ×3 (03:37→20:28)
[2019-12-13] MEDS: ZOFRAN IV PRN (03:57)
[2019-12-13 05:15] LABS: ALLEN TEST YES; BE 1.8 mmoll (-3.0-3.0); BLOOD TYPE ARTERIAL; HCO3-(ACT) 26.3 mmoll (20.0-26.0); METHB 1.2 % (0.0-1.5); O2HB 96.5 % (95.0-99.0); PCO2(98.6) 28 mmHg (35-45); PO2(98.6) 182 mmHg (60-100); SAMPLE BLOOD; SAO2 99.2 % (95.0-100.0); THB 9.3 g/dL (11.5-17.4); pH(98.6) 7.54 (7.35-7.45)
[2019-12-13 05:18] LABS: MODALITY ROOM AIR
[2019-12-13] MEDS: ZYVOX 600 MG/D5W 600 MG/300 ML IVPB IV SCH ×2 (05:48→18:29)
[2019-12-13] MEDS: LASIX IV SCH (06:05)
[2019-12-13] MEDS: CARDIZEM 100 MG/NS 100 MG/100 ML IVPB IV SCH (06:35)
--- NOTE | 2019-12-13 07:25 | Diag Imaging Result Doc PS360 ---
EXAM: CHEST-PORTABLE HISTORY: respiratory failure TECHNIQUE: Single view COMPARISON: 12/12/2019 FINDINGS: The lungs are well expanded. Right jugular portacatheter is unchanged. No pneumothorax. The heart is not enlarged. The vessels are not distended. There are sternal wires. There are no infiltrates. No effusion identified. IMPRESSION: Interval improvement Electronically signed by Trent Lemus 12/13/2019 7:23 AM
[2019-12-13 07:31] LABS: ALB/GLOB RATIO 1.6; ALBUMIN 3.8 g/dL (3.5-5.0); CALCIUM 9.6 mg/dL (8.8-10.2); CREATININE 1.8 mg/dL (0.7-1.2); MAGNESIUM 1.8 mg/dL (1.5-2.7); POTASSIUM 2.9 mmol/L (3.5-5.1); TOTAL BILIRUBIN 1.7 mg/dL (0.20-1.00); TOTAL PROTEIN 6.2 g/dL (6.3-8.3)
[2019-12-13] MEDS: SOLU-CORTEF IV SCH ×2 (08:38→20:28)
[2019-12-13] MEDS: FOLIC ACID PO SCH (08:38)
[2019-12-13 09:33] LABS: BASO# 0.01 X1000 (0.0-0.2); BASO% 1.1 % (0.0-0.8); EOS# 0.08 X1000 (0.0-0.7); EOS% 8.7 % (0.0-10.0); HEMATOCRIT 30.1 % (42.0-52.0); HEMOGLOBIN 9.7 g/dL (14.0-18.0); LYMPH% 65.2 % (20.5-51.1); MCH 29.2 PG (27-31); MCHC 32.2 g/dL (33-37); MCV 90.7 FL (81-99); MONO# 0.06 X1000 (0.11-0.59); MONO% 6.5 % (1.7-9.3); MPV 11.5 FL (7.4-10.4); NEUT# 0.17 X1000 (1.4-6.5); NEUT% 18.5 % (42.2-75.2); PLT 32 X1000 (130-400); RBC 3.32 XMIL (4.7-6.1); RDW 14.8 % (11.5-14.5); WBC 0.92 X1000 (4.8-10.8)
[2019-12-13] MEDS ORDERED: POTASSIUM CHLORIDE 20% LIQUID PO ONE (10:08)
--- NOTE | 2019-12-13 10:08 | PROGRESS NOTE ---
DATE: 12/13/2019 SUBJECTIVE: Mr. Moody states he has had a decent night. He denies right flank pain. OBJECTIVE: Vital Signs: T 96.3 degrees, P 99, BP 129/79. General: No acute distress. Abdomen: Soft, nontender, nondistended. : Bladder nontender to palpation. Moreno catheter in place draining straw-colored urine in the tube with some red sediment in the bag. PERTINENT LABS: His platelet count is 32,000 down from 49,000. 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 He has developed gross hematuria. His urine appears to be clearing up. Again, his hematuria was likely secondary to significant thrombocytopenia and possibly irritation from Moreno catheter manipulation. I still do not recommend urologic intervention. His urine continues to improve. I suspect that as his platelet count bounces up, it will remain clear. PLAN: 1. No intervention needed. 2. Keep Moreno catheter per primary team. Okay to remove whenever they feel comfortable with it. 3. Please call with questions. cc: Kevin Shine MD
[2019-12-13] MEDS: GRANIX SUBQ SCH ×2 (10:15→21:50)
[2019-12-13 11:16] LABS: HEPATITIS PROFILE ACUTE SEE COMMENTS
--- NOTE | 2019-12-13 11:48 | Diag Imaging Result Doc PS360 ---
EXAM: ABDOMEN FLAT/UPRIGHT HISTORY: abdominal pain TECHNIQUE: Two views COMPARISON: None. FINDINGS: No free air beneath the diaphragm. No organomegaly. There is a right-sided ureteral stent. Multiple air distended loops of bowel. Air-filled small bowel and colon. IMPRESSION: Air distended bowel loops likely representing an ileus although the could be a distal obstruction. Electronically signed by Trent Lemus 12/13/2019 11:46 AM
[2019-12-13] MEDS: D5W 1,000 ML IV SCH (12:25)
--- NOTE | 2019-12-13 13:27 | NEPHROLOGY PROGRESS NOTE ---
DATE: 12/13/2019 SUBJECTIVE: He is arousable but nonverbal. OBJECTIVE: Vital Signs: Blood pressure 128/77, heart rate 88, respiration 19, afebrile. Intake 4.1 L. Output 1.7 L. General: No acute distress. Skin: Warm and dry. Neck: Neck veins are not distended. Heart: Regular. No gallops. Lungs: Equal. No crackles. Abdomen: Soft, nontender. Bowel sounds present. Extremities: Minimal edema. No clubbing or cyanosis. IMPRESSION: 1. Acute kidney injury. Slow but progressive improvement. 2. Pulmonary edema. Chest x-ray without vascular distention or infiltrates. We will stop his Lasix. 3. Hypernatremia. Receiving D5W. 4. Hypokalemia. This has been treated. cc: Ángel Cunningham MD
--- NOTE | 2019-12-13 16:32 | Diag Imaging Result Doc PS360 ---
EXAM: CT HEAD W/O CONTRAST HISTORY: encephalopathy TECHNIQUE: CT head without contrast COMPARISON: None. FINDINGS: No parenchymal hemorrhage. No epidural or subdural hematoma. No subarachnoid hemorrhage. There is mild atrophy and mild chronic microvascular ischemic changes. No mass identified on this noncontrasted exam. No hydrocephalus. Moderate mucus inferiorly in the left maxillary sinus with minimal mucus inferiorly in the right. IMPRESSION: 1.No hemorrhage 2.Mild atrophy with chronic microvascular ischemic changes 3.Mild maxillary sinusitis This exam was performed using automated exposure control, adjustment of mA or kV according to patient size, and/or use of iterative reconstruction technique. Electronically signed by Trent Lemus 12/13/2019 4:30 PM
--- NOTE | 2019-12-13 18:36 | PROVIDER PROGRESS NOTE ---
Progress Note Dr. Bay Progress Note/Pulmonary and or critical care Subjective: Patient is on room air at this time and tolerates well. He is having stomach ache at this time. He has one episode of emesis last night. Abdomen XR shows ileus vs. distal obstruction. Input was appreciatedfrom Dr. Reno and other teams on the case. Objective: Vital Signs: T 96.3 (No fever in last 24 hours), VT 101, RR 26, BP 136/77 and SaO2 95% on room air. I/O +2389 ml. Physical Examination: General: Lying in bed with no acute distress noted. HEENT: Normocephalic. Atraumatic. Trachea midline. Mucosa pink and moist. PERRL. Oropharynx clear. Chest: Even and unlabored. Symmetrical excursion. Auscultation reveals inspiratory crackles bilaterally. CVS: Mild tachycardia. S1 and S2 appreciated. Abdomen: Generalized tenderness. Nondistended. Bowel sounds present in all 4 quadrants. Extremities: No edema. No cyanosis. No clubbing. Neuro: Awake and alert with confusion noted. Answer simple questions appropriately. Follow simple commands. Labs and Radiology: Laboratory Results 12/10/19 12/12/19 12/12/19 06:38 07:22 17:54 WBC RBC Hgb Hct MCV MCH MCHC RDW Std Deviation Plt Count MPV Immature Gran % (Auto) Neut % (Auto) Lymph % (Auto) [place] % (Auto) Eos % (Auto) Baso % (Auto) Immature Gran # (Auto) Neut # (Auto) Lymph # (Auto) [place] # (Auto) Eos # (Auto) Baso # (Auto) Corrected WBC (Man) Specimen Type Sample Site pH pCO2 pO2 HCO3 Base Excess Oxyhemoglobin ABG O2 Sat (Calculated) ABG O2 Saturation ABG Carboxyhemoglobin ABG Methemoglobin Ben Test A-a O2 Difference Total Hemoglobin Lactate Blood Gas Modality FiO2 % Sodium 152 H Potassium 3.4 L Chloride 112 H Carbon Dioxide 22 L Anion Gap 18 BUN 67 H Creatinine 2.0 H Estimated GFR/1.73 m2 34 BUN/Creatinine Ratio 34 Glucose 222 H Calculated Osmolality 328 Calcium 10.0 Phosphorus 3.4 Magnesium Total Bilirubin AST ALT Alkaline Phosphatase Ammonia Total Protein Albumin 3.9 Globulin Albumin/Globulin Ratio TSH Free T4 Hep-Induced Plt Ab Angela SEE COMMENTS Hepatitis Panel SEE COMMENTS Blood Type Blood Type Confirm Antibody Screen 12/12/19 12/13/19 12/13/19 17:54 05:00 05:08 WBC RBC Hgb Hct MCV MCH MCHC RDW Std Deviation Plt Count MPV Immature Gran % (Auto) Neut % (Auto) Lymph % (Auto) [place] % (Auto) Eos % (Auto) Baso % (Auto) Immature Gran # (Auto) Neut # (Auto) Lymph # (Auto) [place] # (Auto) Eos # (Auto) Baso # (Auto) Corrected WBC (Man) Specimen Type ARTERIAL Sample Site R RADIAL pH 7.54 H pCO2 28 L pO2 182 H HCO3 26.3 H Base Excess 1.8 Oxyhemoglobin 96.5 ABG O2 Sat (Calculated) 13.0 L ABG O2 Saturation 99.2 ABG Carboxyhemoglobin 1.50 ABG Methemoglobin 1.2 Ben Test YES A-a O2 Difference -67.0 Total Hemoglobin 9.3 L Lactate 2.60 H Blood Gas Modality ROOM AIR FiO2 % 21.0 Sodium Potassium Chloride Carbon Dioxide Anion Gap BUN Creatinine Estimated GFR/1.73 m2 BUN/Creatinine Ratio Glucose Calculated Osmolality Calcium Phosphorus Magnesium 2.0 Total Bilirubin AST ALT Alkaline Phosphatase Ammonia 28 Total Protein Albumin Globulin Albumin/Globulin Ratio TSH Free T4 Hep-Induced Plt Ab Angela Hepatitis Panel Blood Type Blood Type Confirm Antibody Screen 12/13/19 12/13/19 12/13/19 05:15 05:15 05:15 WBC Cancelled RBC Cancelled Hgb Cancelled Hct Cancelled MCV Cancelled MCH Cancelled MCHC Cancelled RDW Std Deviation Cancelled Plt Count Cancelled MPV Cancelled Immature Gran % (Auto) Cancelled Neut % (Auto) Cancelled Lymph % (Auto) Cancelled [place] % (Auto) Cancelled Eos % (Auto) Cancelled Baso % (Auto) Cancelled Immature Gran # (Auto) Cancelled Neut # (Auto) Cancelled Lymph # (Auto) Cancelled [place] # (Auto) Cancelled Eos # (Auto) Cancelled Baso # (Auto) Cancelled Corrected WBC (Man) Cancelled Specimen Type Sample Site pH pCO2 pO2 HCO3 Base Excess Oxyhemoglobin ABG O2 Sat (Calculated) ABG O2 Saturation ABG Carboxyhemoglobin ABG Methemoglobin Ben Test A-a O2 Difference Total Hemoglobin Lactate Blood Gas Modality FiO2 % Sodium 150 H Potassium 2.9 L Chloride 109 H Carbon Dioxide 22 L Anion Gap 19 BUN 60 H Creatinine 1.8 H Estimated GFR/1.73 m2 38 BUN/Creatinine Ratio 33 Glucose 158 H Calculated Osmolality 318 Calcium 9.6 Phosphorus Magnesium 1.8 Total Bilirubin 1.70 H AST 27 ALT 47 H Alkaline Phosphatase 89 Ammonia Total Protein 6.2 L Albumin 3.8 Globulin 2.4 Albumin/Globulin Ratio 1.6 TSH Free T4 0.73 L Hep-Induced Plt Ab Angela Hepatitis Panel Blood Type Blood Type Confirm Antibody Screen 12/13/19 12/13/19 12/13/19 05:15 08:59 08:59 WBC 0.92 L D RBC 3.32 L Hgb 9.7 L Hct 30.1 L MCV 90.7 MCH 29.2 MCHC 32.2 L RDW Std Deviation 14.8 H Plt Count 32 L* D MPV 11.5 H Immature Gran % (Auto) 0.0 Neut % (Auto) 18.5 L Lymph % (Auto) 65.2 H [place] % (Auto) 6.5 Eos % (Auto) 8.7 Baso % (Auto) 1.1 H Immature Gran # (Auto) 0.00 Neut # (Auto) 0.17 L* Lymph # (Auto) 0.60 L [place] # (Auto) 0.06 L Eos # (Auto) 0.08 Baso # (Auto) 0.01 Corrected WBC (Man) Specimen Type Sample Site pH pCO2 pO2 HCO3 Base Excess Oxyhemoglobin ABG O2 Sat (Calculated) ABG O2 Saturation ABG Carboxyhemoglobin ABG Methemoglobin Ben Test A-a O2 Difference Total Hemoglobin Lactate Blood Gas Modality FiO2 % Sodium Potassium Chloride Carbon Dioxide Anion Gap BUN Creatinine Estimated GFR/1.73 m2 BUN/Creatinine Ratio Glucose Calculated Osmolality Calcium Phosphorus Magnesium Total Bilirubin AST ALT Alkaline Phosphatase Ammonia Total Protein Albumin Globulin Albumin/Globulin Ratio TSH 0.09 L Free T4 Hep-Induced Plt Ab Angela Hepatitis Panel Blood Type Blood Type Confirm A POSITIVE Antibody Screen 12/13/19 17:38 WBC RBC Hgb Hct MCV MCH MCHC RDW Std Deviation Plt Count MPV Immature Gran % (Auto) Neut % (Auto) Lymph % (Auto) [place] % (Auto) Eos % (Auto) Baso % (Auto) Immature Gran # (Auto) Neut # (Auto) Lymph # (Auto) [place] # (Auto) Eos # (Auto) Baso # (Auto) Corrected WBC (Man) Specimen Type Sample Site pH pCO2 pO2 HCO3 Base Excess Oxyhemoglobin ABG O2 Sat (Calculated) ABG O2 Saturation ABG Carboxyhemoglobin ABG Methemoglobin Ben Test A-a O2 Difference Total Hemoglobin Lactate Blood Gas Modality FiO2 % Sodium Potassium Chloride Carbon Dioxide Anion Gap BUN Creatinine Estimated GFR/1.73 m2 BUN/Creatinine Ratio Glucose Calculated Osmolality Calcium Phosphorus Magnesium Total Bilirubin AST ALT Alkaline Phosphatase Ammonia Total Protein Albumin Globulin Albumin/Globulin Ratio TSH Free T4 Hep-Induced Plt Ab Angela Hepatitis Panel Blood Type A POSITIVE Blood Type Confirm Antibody Screen NEGATIVE Assessment: Acute hypoxemic respiratory failure. Improving. Intubated between 12/06/19 to 12/10/19. Diffuse bilateral infiltrates with partial clearing with diuresis. CXR this morning shows interval improvement with no infiltrates identified. Lymphoma with extensive disease in the abdomen. Adrenal insufficiency. Acute renal failure with electrolyte abnormality and AG metabolic acidosis. Altered mental status. Atrial fibrillation with RVR. Pancytopenia. Ileus vs. distal obstruction. NG tube suctionging planning if Oncology ok. Plan: Continue supplemental oxygen. We titrated oxygen to patients needs per clinical protocols. We will monitor patients response closely and adjust accordingly. Continue rate control for atrial fibrillation with RVR as outlined by Cardiology. Antibiotics including Cefepime and Linezolid start today. Vancomycin and Zosyn discontinued. We monitor patients clinical and lab response closely. Continue bronchial hygiene. Continue IV Solu-Cortef with weaning at 50 mg q12h today. Continue GI and DVT prophylaxis. Total evaluation time in minutes: 31.
--- NOTE | 2019-12-13 18:57 | PROGRESS NOTE ---
DATE: 12/13/2019 SUBJECTIVE: The patient is resting in bed. He remains confused. He is oriented to self and place. However, he is very impulsive and tries to get out of bed. OBJECTIVE: Vital signs: Temperature 98.6 degrees, blood pressure 134/70, heart rate 96, respirations 18, and O2 saturation is 96% on room air. Intake 4 L, output 1.7 L. General: This is a chronically ill-appearing elderly male lying in bed in no acute distress. Heart: S1, S2 normal. Irregularly irregular rhythm. Lungs: Equal air entry bilaterally. No wheezing. No rales. No rhonchi. Abdomen: Positive bowel sounds. Soft, nontender, nondistended. Extremities: No edema. No cyanosis. Neurologic: The patient is oriented to person and place. He is able to move all 4 extremities. LABORATORIES: White blood cell count 0.9, ANC 170, hemoglobin 9.7, hematocrit 30, platelets 32,000. Sodium 150, potassium 2.9, chloride 109, CO2 of 22, BUN 60, creatinine 1.8, glucose 158. ASSESSMENT AND PLAN: 1. Acute hypoxemic respiratory failure status post extubation. The patient is currently on 2 L nasal cannula and doing well. Continue with pulmonary toiletry and bronchodilator therapy. 2. Acute pulmonary edema. Improved. The diuretic therapy has been stopped. 3. Bilateral infiltrates. Improving. Continue with antibiotic therapy. The procalcitonin level is currently pending. 4. Atrial fibrillation with rapid ventricular response. The patient remains on a Cardizem drip. We will defer to the fountain pen turner regarding weaning of the drip. 5. Neutropenia status post chemotherapy. Continue on Granix and neutropenic precautions as directed by the oncologist. 6. Thrombocytopenia. Likely secondary to the patient's recent chemotherapy. Continue to monitor closely. Transfuse if the platelets drop to 20,000 or less. 7. Hematuria. Resolved. 8. Hypernatremia. Continue on D5W. 9. Acute kidney injury. Slightly improved today. Continue to monitor closely. Nephrology is following. 10. Hepatitis C. Aware. 11. Adrenal insufficiency. We will decrease the Solu-Cortef to 50 mg IV q. 12. 12. Hypokalemia. We will replace the patient's potassium. 13. Metabolic encephalopathy. Unchanged. A head CT is ordered for today. 14. Possible right pyelonephritis. Continue with antibiotic therapy. 15. Ileus. Discussed with . Will place an ngt to low intermittent suction if ok with oncologist. The patient will need platelets prior to attempt. DISPOSITION: The patient will be transferred to [facility] since he is still requiring a Cardizem drip. I called the patient's , Dinora and updated her on the patient's medical condition. cc: Ethel Murrell MD MTD
[2019-12-13] MEDS: MAXIPIME 1 GM in NS 50 ML IV SCH (20:29)
[2019-12-13] MEDS: ATIVAN IV PRN (20:43)
--- NOTE | 2019-12-13 21:48 | Diag Imaging Result Doc PS360 ---
EXAM: CHEST-PORTABLE HISTORY: NG tube placement TECHNIQUE: Single view COMPARISON: 5:05 AM FINDINGS: There is a nasogastric tube overlying the esophagus. This does not appear to enter the stomach. This should be advanced and repeat imaging performed. Electronically signed by Trent Lemus 12/13/2019 9:45 PM
[2019-12-14] MEDS: D5W 1,000 ML IV SCH ×2 (03:32→14:18)
[2019-12-14] MEDS: ATIVAN IV PRN (03:32)
[2019-12-14] MEDS: LOPRESSOR IV PRN ×4 (03:33→20:23)
[2019-12-14 04:42] LABS: ALLEN TEST YES; BE 3.3 mmoll (-3.0-3.0); BLOOD TYPE ARTERIAL; HCO3-(ACT) 27.4 mmoll (20.0-26.0); METHB 0.9 % (0.0-1.5); O2(CT) 20.8 mL/dL (15.0-23.0); O2HB 93.1 % (95.0-99.0); PCO2(98.6) 30 mmHg (35-45); PO2(98.6) 65 mmHg (60-100); SAMPLE BLOOD; SAO2 95.9 % (95.0-100.0); THB 15.9 g/dL (11.5-17.4); pH(98.6) 7.53 (7.35-7.45)
[2019-12-14 04:43] LABS: MODALITY ROOM AIR
[2019-12-14] MEDS: ZYVOX 600 MG/D5W 600 MG/300 ML IVPB IV SCH ×2 (05:10→17:15)
[2019-12-14 06:09] LABS: BASO# 0.01 X1000 (0.0-0.2); BASO% 0.5 % (0.0-0.8); EOS# 0.02 X1000 (0.0-0.7); EOS% 1.1 % (0.0-10.0); HEMATOCRIT 26.8 % (42.0-52.0); HEMOGLOBIN 8.7 g/dL (14.0-18.0); LYMPH% 42.3 % (20.5-51.1); MCH 28.7 PG (27-31); MCHC 32.5 g/dL (33-37); MCV 88.4 FL (81-99); MONO# 0.14 X1000 (0.11-0.59); MONO% 7.4 % (1.7-9.3); MPV 12.1 FL (7.4-10.4); NEUT# 0.92 X1000 (1.4-6.5); NEUT% 48.7 % (42.2-75.2); PLT 58 X1000 (130-400); RBC 3.03 XMIL (4.7-6.1); RDW 14.2 % (11.5-14.5); WBC 1.89 X1000 (4.8-10.8)
[2019-12-14 06:33] LABS: EOS 2 % (1-10); LYMPHS 40 % (21-51); SEGS 48 % (42-75)
[2019-12-14 07:16] LABS: ALB/GLOB RATIO 1.2; ALBUMIN 3.4 g/dL (3.5-5.0); CALCIUM 9.5 mg/dL (8.8-10.2); CREATININE 1.6 mg/dL (0.7-1.2); POTASSIUM 3.2 mmol/L (3.5-5.1); TOTAL BILIRUBIN 1.17 mg/dL (0.20-1.00); TOTAL PROTEIN 6.3 g/dL (6.3-8.3)
--- NOTE | 2019-12-14 07:29 | Diag Imaging Result Doc PS360 ---
EXAM: CHEST-PORTABLE - 12/14/2019 HISTORY: NG tube placement TECHNIQUE: Portable chest for nasogastric tube placement COMPARISON: 12/13/2019 FINDINGS: The tip of the nasogastric tube is at the expected location of the proximal stomach. Heart size is normal. There is mild subsegmental atelectasis at the left base. The lungs otherwise appear essentially clear. There is no pleural effusion or pneumothorax identified. Central venous catheter remains in place. IMPRESSION: Tip of nasogastric tube in proximal stomach. Mild subsegmental atelectasis at left base. Electronically signed by Inocencio New 12/14/2019 7:27 AM
[2019-12-14] MEDS ORDERED: POTASSIUM CHLORIDE 60 MEQ in NS 500 ML IV ONE (07:31)
--- NOTE | 2019-12-14 08:13 | Diag Imaging Result Doc PS360 ---
EXAM: ABDOMEN FLAT/UPRIGHT - 12/14/2019 HISTORY: ileus TECHNIQUE: Portable supine and upright abdomen COMPARISON: 12/13/2019 FINDINGS: There is a nasogastric tube which extends to the mid stomach. There is gaseous distention of small bowel and colon similar to prior. There is no free air identified. Right ureteral stent remains in place. IMPRESSION: Stable gaseous distention of small bowel and colon. Electronically signed by Inocencio New 12/14/2019 8:11 AM
--- NOTE | 2019-12-14 08:15 | Diag Imaging Result Doc PS360 ---
EXAM: CHEST-PORTABLE - 12/14/2019 HISTORY: NG tube placement TECHNIQUE: Portable chest COMPARISON: Prior exam of 12/14/2019 FINDINGS: Heart size is normal. The lungs appear essentially clear. There is no pleural effusion or pneumothorax identified. Central venous catheter remains in place. There is a nasogastric tube is tip at the expected location of the mid stomach. IMPRESSION: No evidence of acute disease. Tip of nasogastric tube at mid stomach. Electronically signed by Inocencio New 12/14/2019 8:13 AM
[2019-12-14] MEDS: FOLIC ACID PO SCH (08:51)
[2019-12-14] MEDS: SOLU-CORTEF IV SCH ×2 (09:16→20:23)
[2019-12-14] MEDS: LOPRESSOR PO SCH ×2 (09:22→20:04)
[2019-12-14 10:21] LABS: HCV BY PCR SEE COMMENTS
[2019-12-14] MEDS: GRANIX SUBQ SCH ×2 (10:47→20:23)
--- NOTE | 2019-12-14 17:11 | PROGRESS NOTE ---
DATE: 12/14/2019 SUBJECTIVE: The patient is resting comfortably. He is in wrist restraints due to being impulsive. OBJECTIVE: Vital Signs: Temperature 98.8 degrees, blood pressure 102/65, heart rate 122, respirations 20, O2 saturation 96% on room air. General: This is a chronically ill-appearing elderly male lying in bed in no acute distress. Heart: S1, S2 normal. Irregularly irregular rhythm. Lungs: Clear to auscultation bilaterally. No wheezing. No rales. Abdomen: Hypoactive bowel sounds. Soft, nontender, nondistended. Extremities: No edema, no cyanosis. Neurologic: The patient is oriented to self and place. He is able to move all 4 extremities. LABS: White blood cell count 1.8, hemoglobin 8.7, hematocrit 26, platelets 58,000. ABG: PH of 7.5, pCO2 30, PO2 65, bicarb 27. Sodium 149, potassium 3.2, chloride 106, CO2 25, BUN 53, creatinine 1.6, glucose 153, total bilirubin 1.1, AST 14, ALT 34, alkaline phosphatase 93. Abdomen x-ray shows stable gaseous distention of the small bowel and colon. Chest x-ray reveals no acute disease. ASSESSMENT AND PLAN: 1. Acute hypoxemic respiratory failure status post extubation. Resolved. The patient is now on room air with normal oxygen saturations. 2. Acute pulmonary edema. Resolved. 3. Bilateral infiltrates. Resolved. 4. Atrial fibrillation with rapid ventricular response. Continue on the current treatment regimen as directed by the refractory technician. 5. Neutropenia status post chemotherapy. Continue on Granix and neutropenic precautions. 6. Thrombocytopenia. Slightly improved. The patient received 1 unit of platelets yesterday. Continue to monitor closely. 7. Ileus. Continue with NG tube decompression. Repeat abd xray tomorrow. 8. Hypernatremia. Slowly improving. Continue with D5W. 9. Acute kidney injury. Improved. Continue the current treatment regimen. 10. Hepatitis C. Aware. 11. Adrenal insufficiency. Continue on Solu-Cortef. 12. Metabolic encephalopathy. Unchanged. The head CT revealed sinusitis. We will consult with the neurologist tomorrow. 13. Right pyelonephritis. Continue with antibiotic therapy. 14. Diffuse large B cell lymphoma s/p chemotherapy. Aware. Oncology is following. 15. s/p right ureteral stent. Stable. cc: Ethel Murrell MD MTDD
--- NOTE | 2019-12-14 17:35 | PROVIDER PROGRESS NOTE ---
Progress Note Dr. Bay Progress Note/Pulmonary and or critical care Subjective: Patient is resting in bed on room air with no acute distress noted. He denies any pain. He is on NG tube suctioing at this time. Input was appreciatedfrom Dr. Reno and other teams on the case. Objective: Vital Signs: T 97.8 (No fever in last 24 hours), MT 106, RR 22, BP 127/81 and SaO2 98% on room air. I/O +1545 ml. Physical Examination: General: Lying in bed with no acute distress noted. HEENT: Normocephalic. Atraumatic. Trachea midline. Mucosa pink and moist. PERRL. Oropharynx clear.NG tube suctioning on. Chest: Even and unlabored. Symmetrical excursion. Clear to auscultation with decreased air entry bilaterally. CVS: Mild tachycardia. Irregularly irregular. S1 and S2 appreciated. Abdomen: Nontender. Nondistended. Bowel sounds present in all 4 quadrants. Extremities: No edema. No cyanosis. No clubbing. Neuro: Awake and alert. Answer simple questions appropriately. Follow simple commands. Labs and Radiology: Laboratory Results 12/12/19 12/13/19 12/13/19 07:22 08:59 17:38 WBC RBC Hgb Hct MCV MCH MCHC RDW Std Deviation Plt Count MPV Immature Gran % (Auto) Neut % (Auto) Lymph % (Auto) [place] % (Auto) Eos % (Auto) Baso % (Auto) Immature Gran # (Auto) Neut # (Auto) Lymph # (Auto) [place] # (Auto) Eos # (Auto) Baso # (Auto) Segmented Neutrophils Lymphocytes Eosinophils Unidentified Cells Specimen Type Sample Site pH pCO2 pO2 HCO3 Base Excess Oxyhemoglobin ABG O2 Sat (Calculated) ABG O2 Saturation ABG Carboxyhemoglobin ABG Methemoglobin Ben Test A-a O2 Difference Total Hemoglobin Lactate Blood Gas Modality FiO2 % Sodium Potassium Chloride Carbon Dioxide Anion Gap BUN Creatinine Estimated GFR/1.73 m2 BUN/Creatinine Ratio Glucose Calculated Osmolality Calcium Total Bilirubin AST ALT Alkaline Phosphatase Total Protein Albumin Globulin Albumin/Globulin Ratio HCV RNA (DNA PCR) SEE COMMENTS Blood Type A POSITIVE Blood Type Confirm A POSITIVE Antibody Screen NEGATIVE 12/14/19 12/14/19 12/14/19 04:10 04:10 04:32 WBC 1.89 L D RBC 3.03 L Hgb 8.7 L Hct 26.8 L MCV 88.4 MCH 28.7 MCHC 32.5 L RDW Std Deviation 14.2 Plt Count 58 L D MPV 12.1 H Immature Gran % (Auto) 0.0 Neut % (Auto) 48.7 Lymph % (Auto) 42.3 [place] % (Auto) 7.4 Eos % (Auto) 1.1 Baso % (Auto) 0.5 Immature Gran # (Auto) 0.00 Neut # (Auto) 0.92 L Lymph # (Auto) 0.80 L [place] # (Auto) 0.14 Eos # (Auto) 0.02 Baso # (Auto) 0.01 Segmented Neutrophils 48 Lymphocytes 40 Eosinophils 2 Unidentified Cells 10.0 Specimen Type ARTERIAL Sample Site R RADIAL pH 7.53 H pCO2 30 L pO2 65 HCO3 27.4 H Base Excess 3.3 H Oxyhemoglobin 93.1 L ABG O2 Sat (Calculated) 20.8 ABG O2 Saturation 95.9 ABG Carboxyhemoglobin 2.00 ABG Methemoglobin 0.9 Ben Test YES A-a O2 Difference 47.0 Total Hemoglobin 15.9 Lactate 3.70 H Blood Gas Modality ROOM AIR FiO2 % 21.0 Sodium 149 H Potassium 3.2 L Chloride 106 Carbon Dioxide 25 Anion Gap 18 BUN 53 H Creatinine 1.6 H Estimated GFR/1.73 m2 44 BUN/Creatinine Ratio 33 Glucose 153 H Calculated Osmolality 314 Calcium 9.5 Total Bilirubin 1.17 H AST 14 ALT 34 Alkaline Phosphatase 93 Total Protein 6.3 Albumin 3.4 L Globulin 2.9 Albumin/Globulin Ratio 1.2 HCV RNA (DNA PCR) Blood Type Blood Type Confirm Antibody Screen Assessment: Acute hypoxemic respiratory failure. Resolved. Intubated between 12/06/19 to . Diffuse bilateral infiltrates with partial clearing with diuresis. CXR this morning shows no evidence of acute disease. Lymphoma with extensive disease in the abdomen. Adrenal insufficiency. Acute renal failure with electrolyte abnormality and AG metabolic acidosis. Altered mental status. Atrial fibrillation with RVR. Pancytopenia. Ileus vs. distal obstruction. On NG tube suctioning. Plan: Continue supplemental oxygen. We titrated oxygen to patients needs per clinical protocols. We will monitor patients response closely and adjust accordingly. Continue rate control for atrial fibrillation with RVR as outlined by Cardiology. Antibiotics including Cefepime and Linezolid start today. Vancomycin and Zosyn discontinued. We monitor patients clinical and lab response closely. Continue bronchial hygiene. Continue IV Solu-Cortef at 50 mg q12h today. Continue GI and DVT prophylaxis. Total evaluation time in minutes: 32.
[2019-12-14 18:11] LABS: MAGNESIUM 1.5 mg/dL (1.5-2.7); POTASSIUM 3.3 mmol/L (3.5-5.1)
[2019-12-14] MEDS: MAXIPIME 1 GM in NS 50 ML IV SCH (20:23)
[2019-12-14] MEDS ORDERED: MAGNESIUM SULFATE 2 GM/S.W.I. 2 GM/50 ML IVPB IV ONE (22:59)
[2019-12-14] MEDS ORDERED: POTASSIUM PHOSPHATE 40 MMOL in NS 250 ML IV ONE (23:00)
[2019-12-15] MEDS: LOPRESSOR IV PRN ×2 (00:30→07:35)
[2019-12-15] MEDS: D5W 1,000 ML IV SCH ×3 (04:22→23:35)
[2019-12-15] MEDS: ZYVOX 600 MG/D5W 600 MG/300 ML IVPB IV SCH ×2 (05:05→19:09)
[2019-12-15 05:13] LABS: ALLEN TEST YES; BE 5.6 mmoll (-3.0-3.0); BLOOD TYPE ARTERIAL; HCO3-(ACT) 29.3 mmoll (20.0-26.0); METHB 0.6 % (0.0-1.5); O2(CT) 13.4 mL/dL (15.0-23.0); O2HB 94.8 % (95.0-99.0); PCO2(98.6) 33 mmHg (35-45); PO2(98.6) 69 mmHg (60-100); SAMPLE BLOOD; pH(98.6) 7.54 (7.35-7.45)
[2019-12-15 05:14] LABS: MODALITY ROOM AIR
[2019-12-15 05:40] LABS: BASO# 0.03 X1000 (0.0-0.2); BASO% 0.4 % (0.0-0.8); EOS# 0.03 X1000 (0.0-0.7); EOS% 0.4 % (0.0-10.0); HEMATOCRIT 27.8 % (42.0-52.0); HEMOGLOBIN 9.1 g/dL (14.0-18.0); IMM GRAN# 0.13 X1000 (0.0-0.04); IMM GRAN% 1.6 % (0.0-0.5); LYMPH# 1.25 X1000 (1.2-3.4); LYMPH% 15.6 % (20.5-51.1); MCHC 32.7 g/dL (33-37); MCV 88.5 FL (81-99); MONO# 0.55 X1000 (0.11-0.59); MONO% 6.9 % (1.7-9.3); NEUT# 6.01 X1000 (1.4-6.5); NEUT% 75.1 % (42.2-75.2); PLT 53 X1000 (130-400); RBC 3.14 XMIL (4.7-6.1); RDW 14.4 % (11.5-14.5)
[2019-12-15 05:49] LABS: MAGNESIUM 2.2 mg/dL (1.5-2.7); PHOSPHORUS 6.3 mg/dL (2.7-4.5)
[2019-12-15 05:51] LABS: ALB/GLOB RATIO 1.1; ALBUMIN 3.1 g/dL (3.5-5.0); CALCIUM 8.8 mg/dL (8.8-10.2); CREATININE 1.4 mg/dL (0.7-1.2); POTASSIUM 2.9 mmol/L (3.5-5.1); TOTAL BILIRUBIN 1.04 mg/dL (0.20-1.00); TOTAL PROTEIN 5.8 g/dL (6.3-8.3)
[2019-12-15] MEDS ORDERED: POTASSIUM CHLORIDE 60 MEQ in NS 500 ML IV ONE (06:42)
--- NOTE | 2019-12-15 07:28 | Diag Imaging Result Doc PS360 ---
EXAM: ABDOMEN FLAT/UPRIGHT INDICATION: ileus TECHNIQUE: 2 views COMPARISON: 12/14/2019 FINDINGS: The NG tube is in stable position. There has been slight improvement of gaseous distention of the colon and small bowel during the interval. No large volume free abdominal gas is appreciated. The abdomen is stable, otherwise. IMPRESSION: Interval slight improvement of gaseous distention of bowel. Electronically signed by Kwasi Hill 12/15/2019 7:25 AM
--- NOTE | 2019-12-15 07:29 | Diag Imaging Result Doc PS360 ---
EXAM: CHEST-PORTABLE INDICATION: dyspnea TECHNIQUE: One view COMPARISON: 12/14/2019 FINDINGS: Support tubes and lines are in stable positions. The lungs remain grossly clear. There is no discrete pleural fluid collection or pneumothorax. The cardiomediastinal silhouette and central vasculature are grossly unremarkable. IMPRESSION: No evidence of acute pathology by plain radiograph. Electronically signed by Kwasi Hill 12/15/2019 7:26 AM
[2019-12-15] MEDS: SOLU-CORTEF IV SCH ×2 (07:35→21:10)
[2019-12-15] MEDS ORDERED: CARDIZEM IV ONE (07:48)
[2019-12-15] MEDS: DUONEB (A & A) INH PRN ×3 (08:02→23:45)
[2019-12-15] MEDS: CARDIZEM 100 MG/NS 100 MG/100 ML IVPB IV SCH ×3 (08:59→21:11)
[2019-12-15] MEDS: FOLIC ACID PO SCH (09:02)
[2019-12-15] MEDS: LOPRESSOR IV SCH ×3 (09:02→21:10)
[2019-12-15] MEDS: LOPRESSOR PO SCH ×2 (09:02→21:19)
--- NOTE | 2019-12-15 09:25 | CARDIOLOGY PROGRESS NOTE ---
DATE: 12/15/2019 CHIEF COMPLAINT: Irregular heartbeat, shortness of breath. SUBJECTIVE: Since I saw him last time on 12/12/2019 and over the weekend, apparently the patient has developed distended bowel loops consistent with ileus. This was reported at 6:42 a.m. on 12/13/2019. Now the patient is back into atrial fibrillation with rapid response. The patient is not having any specific chest pain. His white count has picked up back to 8000 now. Hemoglobin is 9.1. OBJECTIVE: Vital signs: Pulse is about 108 to 140, blood pressure 112/78, respirations 24, temperature is 98.1. He is awake with an NG tube connected to suction. Chest: Diminished breath sounds bilaterally. Heart sounds are irregularly irregular, distant. Abdomen is soft. Bowel sounds are markedly diminished, nontender. Extremities showed palpable pulses. The patient seems to be responding properly. He is not as confused as he was. Moves all 4 extremities. DIAGNOSTIC DATA: His chest x-ray this morning shows no pathology. His infiltrates have cleared up. Blood work shows sodium 150, potassium 2.9, BUN is 42, creatinine 1.4. IMPRESSION: 1. The patient has paroxysmal atrial fibrillation. 2. Ileus secondary to systemic infection/metabolic stress. 3. Hypernatremia, still uncorrected. 4. Hypokalemia. 5. Lymphoma, status post chemotherapy, with pancytopenia that appears to have recovered. His platelet count is still in the 53,000 range. White cell count is normal now. 6. Confusion, organic brain syndrome. This is probably metabolic, acute, secondary to the patient's systemic issues. 7. Hypoxemic respiratory failure that has resolved. 8. Acute on chronic renal failure. 9. History of hepatitis C with porphyria cutanea tarda. 10.History of aortic valve replacement with bioprosthesis. 11.History of coronary atherosclerosis. RECOMMENDATIONS: At this time, since the patient has an ileus and is not absorbing the medications, we need to put him on IV Cardizem and also IV metoprolol around the clock until the ileus resolves. 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 We will continue to follow him. cc: Warren Scott MD
[2019-12-15] MEDS: GRANIX SUBQ SCH (11:31)
--- NOTE | 2019-12-15 11:39 | NEUROLOGY CONSULTATION ---
DATE: 12/15/2019 HISTORY OF PRESENT ILLNESS: Mr. Moody is 64 years old and Neurology consultation was requested for encephalopathy. Mr. Moody was admitted 12/06/2019 with shortness of breath progressing to the point that he required intubation, mechanical ventilation. He has now been extubated. He has had some restlessness requiring wrist restraints. There has been reported confusion. Admission note indicates he had brain MRI scan done as an outpatient last week because of mental changes that were apparent then, prior to this admission. He reports today that he is not certain why recent brain MRI was done. He has not had focal neurologic feature reported. There is not history of serious head injury, previous stroke, seizure, unconsciousness. Home medication list includes zolpidem, pregabalin, hydrocodone, methocarbamol. He reports taking methocarbamol and hydrocodone most nights, zolpidem about every night, pregabalin b.i.d. as directed in recent weeks. He reports he takes care of his own medications at home. He denies illicit drug use. Current medications include cefepime. I am not certain about the onset of confusion in relationship to timing of cefepime initiation. Workup here includes noncontrast CT reported unremarkable. Outpatient brain MRI 12/05/2019 done with and without contrast was unremarkable. Lab shows normal magnesium and calcium. Phosphorus was 4.3, then as low as 2 and now high at 6 today. Sodium was initially 129, later 154, today 150. BUN has been improved from 60s on admission to 40s. Blood sugars have ranged from 90s to 220s. TSH is low and free T4 is low. He reports no history of thyroid problems or thyroid medication use. Liver enzymes were transiently elevated and now normal. He has been afebrile. There is reported past history of lymphoma. PHYSICAL EXAMINATION: On exam, Mr. Moody is awake, alert, attentive, and appropriate. Speech is not dysarthric. Language function is intact on careful bedside testing. Recent and remote memory are good. He was completely oriented to all parameters, except missing the day of the week. He named the President. He had a little trouble collecting his thoughts to discuss recent news. He did not confabulate. He registered 3 items and easily recalled 2 of 3 items at 10 minutes. He picked the 3rd item correctly from a multiple choice list. Overall, his score was 27/30 on bedside cognitive testing. Head and neck are unremarkable. There is no meningismus. He has full visual cuadra tested grossly by confrontational finger counting. Extraocular movements are full. Facial motility is symmetric. Facial sensation is intact to pinprick testing. Gag is intact. Tongue is midline. He can hear. Shoulder shrug is good bilaterally. He has good power symmetrically in the arms and legs. Limb tone is symmetric. He did rapid alternating movements well with the hands. He reports good pinprick appreciation over the hands. He has a stocking pattern of sensory loss to pinprick bilaterally. Reflexes are absent at the ankles and trace at the knees. I did not test his gait. IMPRESSION: Global encephalopathy. I believe he may be improved now compared to a few days ago. There may be a baseline cognitive impairment syndrome, but his performance on bedside testing is at least borderline now with no definite evidence of cognitive impairment. If delirium appears to be new during this hospitalization, and not preexisting, not the reason for recent MRI, cefepime might be at least partial explanation. If he has further delirium or agitated confusion in the hospital, we can consider careful trial with low-dose antipsychotic medication. If he continues confused, we might repeat his thyroid studies. If he appears cognitively impaired at baseline, during hospitalization or as outpatient, we can reassess cognitive function and consider cholinesterase inhibitor trial. If he has fluctuating level of consciousness, we might consider elective EEG. Thanks for asking Neurology to see Mr. Moody. cc: Aren Helms III, MD [facility] CENTERYenifer
[2019-12-15] MEDS ORDERED: SODIUM CHLORIDE 0.9% INJ ONE (11:51)
[2019-12-15] MEDS ORDERED: SYNTHROID IV ONE (11:51)
[2019-12-15] MEDS ORDERED: DULCOLAX PR ONE (13:06)
[2019-12-15] MEDS ORDERED: MILK OF MAGNESIA PO ONE (13:06)
--- NOTE | 2019-12-15 13:41 | PROGRESS NOTE ---
DATE: 12/15/2019 SUBJECTIVE: The patient is awake and alert. He knows where he is. He does have periods of confusion, however. No acute events noted overnight. The patient remains on a Cardizem drip. OBJECTIVE: Vital Signs: Temperature 98 degrees, blood pressure 108/69, heart rate 112, respirations 25, O2 saturation is 96% on room air. Intake 3.2 L, output 2.6 L. General: This is a chronically ill-appearing, elderly male, lying in bed in no acute distress. Heart: S1, S2 normal. Irregularly irregular rhythm, tachycardic. Lungs: Clear to auscultation bilaterally. No wheezing. No rales. No rhonchi. Abdomen: Positive bowel sounds. Soft, nondistended. Extremities: No edema, no cyanosis, no calf tenderness. Neurologic: The patient is alert and oriented x3. No focal neurologic deficits noted. IMAGING AND LABORATORY DATA: White blood cell count 8, hemoglobin 9.1, hematocrit 27, platelets 53,000. ABG: PH of 7.5, pCO2 of 33, PO2 of 69, bicarb 29, lactate 5.6. Sodium 150, potassium 2.9, chloride 103, CO2 of 25, BUN 42, creatinine 1.4, glucose 155, phosphorus 6.3, albumin 3.1, lactate 6.1. Abdominal x-ray shows improvement of the gaseous distention of the bowel. Chest x-ray shows no acute abnormality. ASSESSMENT AND PLAN: 1. Acute hypoxemic respiratory failure status post extubation. Resolved. The patient has normal oxygen saturations on room air. 2. Bilateral infiltrates. Resolved. 3. Atrial fibrillation with rapid ventricular response. The rate is not controlled. The patient is currently on a cardizem drip and lopressor. Further management as per the care manager cna. 4. Pancytopenia. Improved. The patient is no longer neutropenic. Further management as per the Oncology Service. 5. Ileus. Slightly improved today. Continue to monitor closely for improvement. The patient has a nasogastric tube in place to low intermittent suction. 6. Hypopituitarism. The patient has what appears to have adrenal insufficiency and central hypothyroidism. Will continue with Solu-Cortef. Will add Synthroid. The MRI of the brain did not reveal an obvious pituitary mass. The patient would likely benefit from followup with an grant writer as outpatient. Will check prolactin, ACTH, and testosterone. 7. Hypernatremia. Will increase the D5W to 100 mL an hour. 8. Acute kidney injury. Slowly improving. The patient continues to have excellent urine output. Will avoid nephrotoxic agents. 9. High anion gap metabolic acidosis secondary to lactic acidosis. The etiology for the patient's lactic acidosis is unknown. Will continue to treat the pyelonephritis. 10. Diffuse large B-cell lymphoma, status post chemotherapy. Management as per the oncologist. 11. Metabolic encephalopathy. Slowly improving. The patient knows his name and where he is. Continue to monitor closely. 12. Adrenal insufficiency. Continue on Solu-Cortef. 13. Hepatitis C. Aware. GI has been consulted. 14. Right pyelonephritis. Continue with antibiotic therapy. 15. Status post ureteral stent placement secondary to right hydronephrosis with urethral dilation. Stable. 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 17. Disposition. The patient's Cardizem drip is still being titrated by the care manager cna. He will need to remain in the intensive care unit today. Physical Therapy has been consulted. cc: Ethel Murrell MD MTDD
--- NOTE | 2019-12-15 15:24 | NEPHROLOGY PROGRESS NOTE ---
DATE: 12/15/2019 SUBJECTIVE: He feels like he is doing well overall. No complaints to me. OBJECTIVE: Vital Signs: Blood pressure 106/69, heart rate 100, respirations 25, afebrile. General: No acute distress. Skin: Warm and dry. HEENT: Conjunctivae are pink. Heart: Regular. Lungs: Equal. No crackles. Abdomen: Soft, non tender. Extremities: No edema, clubbing or cyanosis. IMPRESSION: 1. Acute kidney injury. This has resolved. 2. Hypernatremia. Continue D5 W 100 mL an hour. 3. Metabolic acidosis. Elevated anion gap. Lactate explains the difference over the last several days. It is not clear why he has an evolving lactic acidosis. Usual sources should be considered - cardiac, sepsis, gastrointestinal, etc. Will follow with you. cc: Ángel Cunningham MD
[2019-12-15] MEDS: ZOFRAN IV PRN (15:41)
--- NOTE | 2019-12-15 16:14 | HEMO/ONC PROGRESS NOTE ---
DATE: 12/15/2019 CHIEF COMPLAINT: The patient remains quite confused at this time. OBJECTIVE: Vital Signs: Temperature 98 degrees, blood pressure 106/69, heart rate 100, respirations 25, O2 saturation 97% on room air. Cardiovascular: S1, S2. The patient is slightly tachycardic. Respiratory: Respirations nonlabored. Abdomen: Nondistended. Extremities: No clubbing, cyanosis, or edema. LABORATORY DATA: Hemoglobin 9.1, hematocrit 27.8, white blood cell count is 8.00, platelets 53,000. Sodium 150, potassium 2.9, chloride 103, CO2 is 25, BUN 42, creatinine 1.4 and glucose is 155. ASSESSMENT AND PLAN: 1. Diffuse large B-cell lymphoma, status post cycle one of R-CHOP on 12/04/2019. We will continue to hold treatment until the patient's acute illness improves. 2. Acute respiratory failure. The patient is extubated and on room air with no respiratory distress. 3. Diffuse bilateral infiltrates. The patient remains on antibiotics. Coronavirus Disease 2019 testing was negative. 4. Altered mental status persists of questionable etiology. Neurology has been consulted. 5. Neutropenia. White blood cell count has improved significantly on Granix. White blood cell count today is 8,000. ANC is 6010. We will discontinue Granix at this time. 6. Anemia. Hemoglobin is currently 9.1. We will continue to monitor and recommend packed red blood cell transfusion if hemoglobin drops below 8.0 or in the setting of active bleeding. 7. We will follow along with you and make further recommendations pending outcome. The above reflects the history, exam, assessment, and plan of Dr. Rangel. Dictated by RACHEL Simon for Stephen Rangel MD cc: RACHEL Simon MD
--- NOTE | 2019-12-15 16:33 | Diag Imaging Result Doc PS360 ---
EXAM: CHEST/ABD TUBE PLACEMENT 12/15/2019 HISTORY: NG tub placement TECHNIQUE: AP upright portable at 1621 COMMENT: There is an NG tube with its tip in the stomach. There is a Port-A-Cath on the right with its tip in the right atrium. There is a aortic valve prosthesis. IMPRESSION: NG tube in the stomach. Electronically signed by Luis Antonio Hoffmann 12/15/2019 4:31 PM
--- NOTE | 2019-12-15 17:41 | GASTROENTEROLOGY CONSULTATION ---
DATE: 12/15/2019 REASON FOR CONSULTATION: Ileus. HISTORY OF PRESENT ILLNESS: This is a 64-year-old male patient who was admitted on 12/06/2019, admitted for acute respiratory failure. Patient was intubated for some time. He has been extubated. He was recently diagnosed with diffuse large B-cell lymphoma, following with Dr. Rangel. He had received chemotherapy, which is now currently on hold. The patient had an abdominal x-ray today that showed interval slight improvement in gaseous distention of the bowel. He had an NG tube placed that was noted to be in good position. At the time of our visit, the patient was somewhat confused. The patient was also seen by Dr. Palencia. He was in bilateral wrist restraints. He denied abdominal pain. Per intake and output report, he had a liquid stool on 12/13/2019. There was noted blood in the NG canister. The patient's NG is to low intermittent suction at the time of our visit. PAST MEDICAL HISTORY: Anemia, history of prostate cancer, history of diffuse large B-cell lymphoma with lymphadenopathy, following with Dr. Rangel, history of porphyria, history of thrombocytopenia. ALLERGIES: No known drug allergies. HOME MEDICATIONS: 1. Zyrtec 10 mg twice a day. 2. Tatum 10/325 every 6 hours as needed. 3. Lansoprazole 30 mg every night. 4. Methocarbamol 750 mg twice a day. 5. Lopressor 50 mg twice a day. 6. Zofran 4 mg every 6 hours as needed. 7. Pravachol 20 mg every night. 8. Lyrica 150 mg every night. 9. Ambien 10 mg every night. SOCIAL HISTORY: No reported alcohol or tobacco use. FAMILY HISTORY: Cancer in his mother. Diabetes mother and father. Heart disease father. Kidney disease in his mother. REVIEW OF SYSTEMS: Per history of present illness. Unable to fully obtain due to patient's confusion. PHYSICAL EXAMINATION: Vital Signs: Temperature 98 degrees, pulse 100, respirations 25, blood pressure 106/69. General: Patient was awake, but confused, pleasantly confused. He is in restraints. Abdomen: Soft, nontender. DIAGNOSTIC RESULTS: Laboratory: WBC 8.0, hemoglobin 9.1, hematocrit 27.8, MCV 88.5, platelets 53,000. Chemistry: Sodium 150, potassium 2.9, chloride 103, CO2 25, BUN 42, creatinine 1.4, glucose 155, calcium 8.3, phosphorus 6.3, magnesium 2.2, total bilirubin 1.04, AST 11, ALT 21, alkaline phosphatase 91. Ammonia on 12/13/2019 was 28. Hepatitis C panel had reactive hepatitis C. HCV quantitative was unable to be done due to insufficient quantity for testing. ASSESSMENT AND PLAN: 1. Diffuse large B-cell lymphoma. Following with Dr. Rangel. Chemotherapy currently on hold. 2. Acute respiratory failure. Patient has been extubated. 3. Bilateral lung infiltrates on antibiotics. He has had some improvement in his x-ray. 4. Altered mental status. Patient is in restraints. 5. Neutropenia. Continue current management. 6. Anemia. Patient's hemoglobin and hematocrit have improved. 7. Blood noted in NG canister. Recommend holding suction for now. It may be up against the gastric wall. Continue current medications. Continue proton pump inhibitor. 8. Ileus. Will give milk of magnesia and a Dulcolax suppository today. Continue electrolyte replacement. 9. Reactive hepatitis C. Will repeat HCV RNA quantitative and get hepatitis C genotype for further evaluation. We will continue to follow. Further plans will be made according to his progress. Patient was also seen by Dr. Palencia. Thank you for this consultation. Dictated by RACHEL Leslie for Supa Palencia MD cc: RACHEL Bonilla MD
--- NOTE | 2019-12-15 20:02 | PULMONOLOGY PROGRESS NOTE ---
DATE: 12/15/2019 SUBJECTIVE: The patient is awake and alert. He has some confusion. He is not oriented. OBJECTIVE: Vital Signs: BP 109/67, heart rate 105, respiratory rate 23, oxygen saturation 97% on 2 L per nasal cannula. HEENT: Pupils are equal. Oropharynx appears dry. NG tube is in position draining coffee-ground material. Neck: Supple. Chest: Reveals occasional crackles. Cardiac: Increased rate, regular rhythm. Abdomen: Mildly tympanitic. Extremities: Slightly cool to the touch. DATA: Chest x-ray reveals relatively clear. NG tube in good position. Nonspecific bowel gas pattern. White blood count 8.0, hemoglobin 9.1, platelet count 53,000. Sodium 153, potassium 2.9, chloride 103, bicarbonate 25, BUN 42, creatinine 1.2. Lactate 6.1. IMPRESSION: A 64-year-old with 1. Acute hypoxemic respiratory failure. 2. Clearing bilateral infiltrates. 3. Lactic acidosis. 4. Adrenal insufficiency. 5. Hypernatremia. 6. Altered mental status. 7. Neutropenia with subsequent resolution. PLAN: 1. Continue current antibiotic regimen. 2. Agree with free water replacement as per Dr. Murrell. 3. Wean oxygen as tolerated. 4. Prognosis remains guarded. cc: Rajat Sanders MD
[2019-12-15] MEDS: MAXIPIME 1 GM in NS 50 ML IV SCH (21:11)
[2019-12-16] MEDS: LOPRESSOR IV SCH ×4 (02:17→20:33)
[2019-12-16] MEDS: CARDIZEM 100 MG/NS 100 MG/100 ML IVPB IV SCH ×3 (02:47→15:47)
[2019-12-16] MEDS: DUONEB (A & A) INH PRN (04:02)
[2019-12-16 04:38] LABS: ALLEN TEST YES; BE 4.9 mmoll (-3.0-3.0); BLOOD TYPE ARTERIAL; HCO3-(ACT) 28.7 mmoll (20.0-26.0); METHB 1.2 % (0.0-1.5); O2(CT) 12.3 mL/dL (15.0-23.0); O2HB 95.5 % (95.0-99.0); PCO2(98.6) 26 mmHg (35-45); PO2(98.6) 101 mmHg (60-100); SAMPLE BLOOD; SAO2 98.8 % (95.0-100.0)
[2019-12-16 04:40] LABS: MODALITY ROOM AIR; pH(98.6) 7.61 (7.35-7.45)
[2019-12-16 05:16] LABS: BASO# 0.07 X1000 (0.0-0.2); BASO% 0.3 % (0.0-0.8); EOS# 0.01 X1000 (0.0-0.7); HEMATOCRIT 26.5 % (42.0-52.0); HEMOGLOBIN 8.6 g/dL (14.0-18.0); IMM GRAN# 2.01 X1000 (0.0-0.04); IMM GRAN% 9.2 % (0.0-0.5); LYMPH# 1.81 X1000 (1.2-3.4); LYMPH% 8.3 % (20.5-51.1); MCH 29.5 PG (27-31); MCHC 32.5 g/dL (33-37); MCV 90.8 FL (81-99); MONO# 0.27 X1000 (0.11-0.59); MONO% 1.2 % (1.7-9.3); MPV 13.4 FL (7.4-10.4); NEUT# 17.74 X1000 (1.4-6.5); PLT 73 X1000 (130-400); RBC 2.92 XMIL (4.7-6.1); RDW 14.8 % (11.5-14.5); WBC 21.91 X1000 (4.8-10.8)
[2019-12-16 05:20] LABS: INR 1.09; PROTIME 14.2 Seconds (11.0-16.0)
[2019-12-16 05:23] LABS: MAGNESIUM 2.3 mg/dL (1.5-2.7); PHOSPHORUS 3.1 mg/dL (2.7-4.5)
[2019-12-16 05:27] LABS: ALB/GLOB RATIO 1.7; ALBUMIN 3.4 g/dL (3.5-5.0); CALCIUM 8.8 mg/dL (8.8-10.2); CREATININE 1.7 mg/dL (0.7-1.2); POTASSIUM 3.2 mmol/L (3.5-5.1); TOTAL BILIRUBIN 0.91 mg/dL (0.20-1.00); TOTAL PROTEIN 5.4 g/dL (6.3-8.3)
[2019-12-16] MEDS: ZYVOX 600 MG/D5W 600 MG/300 ML IVPB IV SCH (05:35)
[2019-12-16] MEDS: SODIUM CHLORIDE 0.9% INJ PRN (06:33)
[2019-12-16] MEDS: SYNTHROID IV SCH (06:33)
--- NOTE | 2019-12-16 06:48 | Diag Imaging Result Doc PS360 ---
EXAM: FLAT/UPRIGHT ABD/1 VIEW CHEST HISTORY: Ileus TECHNIQUE: Three views COMPARISON: 12/15/2019 FINDINGS: The lungs are well expanded. Nasogastric tube in esophagus and stomach. No cardiomegaly. No change in the right jugular line. No free air beneath the diaphragm. There is a right ureteral stent. No organomegaly. The bowel gas pattern is similar to the prior study. IMPRESSION: Stable exam Electronically signed by Trent Lemus 12/16/2019 6:46 AM
[2019-12-16 07:36] LABS: LYMPHS 6 % (21-51); MONO 2 % (1-9); SEGS 76 % (42-75)
[2019-12-16] MEDS: SOLU-CORTEF IV SCH ×2 (07:46→20:33)
[2019-12-16] MEDS: D5W 1,000 ML IV SCH ×2 (07:47→08:36)
[2019-12-16] MEDS: FOLIC ACID PO SCH (08:34)
[2019-12-16] MEDS: LOPRESSOR PO SCH ×2 (08:34→20:38)
--- NOTE | 2019-12-16 08:53 | CARDIOLOGY PROGRESS NOTE ---
DATE: 12/16/2019 CHIEF COMPLAINT: Irregular heartbeat and shortness of breath. SUBJECTIVE: Mr. Moody in general seems to be better. He is more awake and less confused, although he drifts into sleep easily. He states that he is not having any pain. NG tube is still in place. OBJECTIVE: Vital Signs: This morning his temperature is 91. His pulse is 110. Respirations are 22. Blood pressure is 105/60. General: He follows commands and responds appropriately. NG tube is in place. HEENT: Otherwise, unremarkable. Chest: Diminished breath sounds in the bases without rales. Cardiac: Heart sounds are regular and rhythmic, tachycardic. Abdomen: The abdomen is probably a little bit distended. Soft. Bowel sounds are diminished. Nontender. Extremities: The extremities show palpable pulses. No edema. Neurological: He drifts into sleep, however, he dose follow commands and moves all extremities. LABORATORY DATA: Blood Work: Today his white count has jumped to 21,910. Hemoglobin is 8.6. Platelet count is up to 73,000. His blood gases are okay on room air. His pH is 7.6, pO2 101, and pCO2 26. His sodium is 143, potassium 3.2, BUN 44, and creatinine 1.7. His albumin is 3.4. IMPRESSION: 1. Patient who has paroxysmal atrial fibrillation. He is back in normal sinus rhythm today, sinus tachycardia. 2. Ileus. The reason for this is unclear. 3. Lymphoma, status post chemotherapy. 4. Pancytopenia initially and then this resolved and now he has leukocytosis with neutrophilia. 5. 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 6. Status post aortic valve replacement with a bioprosthetic valve. 7. Coronary atherosclerosis. 8. Prior history of hepatitis C and porphyria cutanea tarda. 9. Initial presentation with hypoxemic respiratory failure that appears to have resolved. RECOMMENDATIONS: At this time, we will continue IV metoprolol as we are doing with IV Cardizem. He has converted to sinus rhythm. Whenever his gut returns to normal function then may switch the medications to oral. At this time, we will wait for his ileus to resolve. cc: Warren Scott MD
[2019-12-16] MEDS ORDERED: 1/2 NS + KCL 20 MEQ 1,000 ML IV ONE (09:31)
--- NOTE | 2019-12-16 09:45 | EKG Report ---
Test Performed on : 12/16/2019 09:34:20 AM Test Reason : per MD; confirmation of SR Blood Pressure : / mmHG Vent. Rate : 098 BPM Atrial Rate : 098 BPM P-R Int : 152 ms QRS Dur : 072 ms QT Int : 394 ms P-R-T Axes : 075 042 -79 degrees QTc Int : 503 ms Normal sinus rhythm. ST & T wave abnormality, consider inferior ischemia ST & T wave abnormality, consider anterolateral ischemia Prolonged QT Abnormal ECG When compared with ECG of 10-DEC-2019 07:00, aberrant conduction. is no longer present T wave inversion less evident in Lateral leads QT has lengthened Confirmed by Cain ZUNIGA, Ben Meade ([id number]) on 12/17/2019 9:07:43 AM
--- NOTE | 2019-12-16 09:52 | PROGRESS NOTE ---
DATE: 12/16/2019 SUBJECTIVE: The patient is awake, he is oriented to person. No events overnight. He converted to sinus rhythm. He is still on Cardizem drip and beta blockers IV as well. He was hypernatremic and he has been placed on D5W which I will continue but I will add potassium to that treatment. He is still n.p.o. due to ileus. Physical Therapy on board. It looks like his pneumonia is better and his hypoxemic respiratory failure is better as well. I am not sure why this patient's lactate level is elevated though. OBJECTIVE: Vital Signs: Temperature 97.8 degrees, pulse 98, respiratory rate 15, blood pressure 105/60, oxygen saturation 95% on room air. HEENT: Head normocephalic, no trauma. PERRLA. Neck: Supple. No JVD. No masses. Central trachea. Chest: Clear to auscultation. Occasional crackles at the bases. Cardiovascular: Regular rate and rhythm, slightly tachycardic. Abdomen: Soft, is slightly tympanic. Decreased bowel sounds. Extremities: No edema, no clubbing, no cyanosis. Neurological: The patient is awake, alert, he is oriented x1, to person, he is following commands. LABORATORY DATA: WBC 21.9, hemoglobin 8.6, hematocrit 26.5, platelets 73,000. Sodium 143, potassium 3.2, chloride 96, bicarbonate 26, BUN 44, creatinine 1.7, glucose 182, calcium 88. Phosphorus 3.1. AST 15, ALT 25, alkaline phosphatase 136, albumin 3.4. ASSESSMENT AND PLAN: 1. Acute hypoxemic respiratory failure secondary to pneumonia, resolved. The patient's oxygen saturation is normal at room air, continue with the same management. 2. Pneumonia, resolved. 3. Atrial fibrillation with rapid ventricular response, converted to sinus rhythm. Continue with Cardizem drip and beta blockers IV. Cardiology Department on board. 4. Pancytopenia, improved. The patient is no longer neutropenic. The platelet count is still low but better. He is still anemic. 5. Ileus. Decreased bowel sounds but I do believe he has some scattered sounds. His abdomen is still tympanic and no bowel movements. We will monitor. 6. Hypopituitarism. He appears to have an adrenal insufficiency. Continue with the same management. He is on Solu-Cortef and also levothyroxine. 7. Hypernatremia, resolved. I will continue with the D5W though and I will add potassium. 8. Hypokalemia. I will replace the potassium. 9. Acute kidney injury. This is getting better slowly. I am not quite sure about his baseline since he was admitted on 12/06/2019 with a creatinine of 2.7. 10. High anion gap metabolic acidosis and lactic acidosis. I am not quite sure why this patient has an elevated lactic acid. I will continue with the same management. He has right pyelonephritis. Continue with antibiotics. 11. Metabolic encephalopathy. I am not quite sure about his baseline. I will try to get the family involved. 12. Diffused large B-cell lymphoma status post chemotherapy. I will continue following the recommendations of Oncology Department. 13. Hepatitis C, aware. Gastroenterology on board. 14. Right pyelonephritis. Continue with antibiotics. 15. Status post ureteral stent placement secondary to right hydronephrosis with urethral dilation, stable. 16. Hypothyroidism. Continue with Synthroid. I will keep an eye on him for the next 24 hours to see if we can start feeding this patient. Hopefully, he will have a bowel movement today. Electrolytes have been replaced and sodium level has been better. I will follow the recommendations of the subspecialties. cc: Elijah Blood MD
[2019-12-16] MEDS ORDERED: POTASSIUM CHLORIDE 20 MEQ in D5W 1,000 ML IV SCH (10:00)
--- NOTE | 2019-12-16 10:02 | NEPHROLOGY PROGRESS NOTE ---
DATE: 12/16/2019 SUBJECTIVE: He feels well. No abdominal pain. No shortness of breath, chest discomfort, nausea, vomiting, etc. OBJECTIVE: Vital Signs: Blood pressure 105/60, heart rate 98, respirations 15, afebrile. General: No acute distress. Skin: Warm and dry. Heart: Regular. Lungs: Equal, no crackles. Abdomen: Soft, flat, nontender. Bowel sounds present. Extremities: No edema, clubbing or cyanosis. IMPRESSION: Acute kidney injury. Creatinine 1.7. Roughly stable over the last 3 days. Still has high BUN to creatinine ratio. Net -3 L since admission. Last chest x-ray performed on yesterday with no pulmonary edema or pleural effusions. I will increase his fluids today. With regard to the lactic acidosis, I do not have a ready answer as to why his lactate is rising. His abdomen is benign. Not overtly septic. We will follow. cc: Ángel Cunningham MD
--- NOTE | 2019-12-16 11:46 | NEUROLOGY PROGRESS NOTE ---
DATE: 12/16/2019 SUBJECTIVE: There has not been major neurologic change coordinator the last 24 hours. There is secondhand report that there has been some baseline cognitive impairment since he started chemotherapy. OBJECTIVE: Mr. Moody is awake, alert, attentive. He identified the President and the month correctly. He missed the day of the week by 1. He was able to discuss some [place] [address] today. Sodium is normal at 143, improved since yesterday. He continues afebrile. IMPRESSION: Global encephalopathy, slowly improving. With history from family that there has been baseline cognitive impairment, I do not think we need to do anything urgently from Neurology standpoint. We can consider further brain imaging and EEG later but neither of these is necessary urgently. Eventually, a cholinesterase inhibitor trial could be considered. Thanks for asking Neurology to see Mr. Moody. cc: MD DILAN Wilkerson III
[2019-12-16] MEDS ORDERED: MILK OF MAGNESIA PO ONE (15:32)
[2019-12-16] MEDS ORDERED: DULCOLAX PR ONE (15:32)
--- NOTE | 2019-12-16 16:20 | PROGRESS NOTE ---
DATE: 12/16/2019 SUBJECTIVE: Patient was awake. He continues to be in restraints and per nurse having periods of confusion. She did restart the NG to low intermittent suction due to gastric residual greater than 200. There are no reports of vomiting. The patient has not had a bowel movement. He was given milk of magnesia and Dulcolax yesterday with no results. OBJECTIVE: Vital Signs: Temperature 98.8 degrees, pulse 111, respirations 21, blood pressure 102/49. General: The patient was awake but pleasantly confused. LABORATORY: Sodium 143, potassium 3.2, chloride 96, CO2 26, BUN 44, creatinine 1.2, glucose 182, calcium 8.8, phosphorus 3.1, magnesium 2.3, total bilirubin 0.91, AST 15, ALT 25, alkaline phosphatase 136. ASSESSMENT AND PLAN: 1. Anemia. Continue to follow. 2. History of respiratory failure. Patient has been extubated, not requiring oxygen supplement at this time. 3. Ileus. Patient has not had a bowel movement. We will repeat his milk of magnesia and Dulcolax. 4. Electrolyte imbalance. Continue replacement. Recommend a goal potassium of at least 3.5. I believe he will have replacement today. 5. Metabolic encephalopathy. Patient is continuing to have confusion and in restraints, has been seen by Neurology. 6. Diffuse large B-cell lymphoma. Following with Oncology. 7. Hepatitis C, reactive. HCV quantitative and genotype has been ordered, waiting on results. 8. We will continue to monitor. Repeat his Dulcolax and milk of magnesia. Clamp nasogastric tube unless residual is greater than 250. We will continue to follow and further plans will be made according to his progress. I have discussed this case with Dr. Palencia and patient was also seen by Dr. Palencia. Dictated by RACHEL Leslie for Supa Palencia MD cc: RACHEL Bonilla MD
--- NOTE | 2019-12-16 16:21 | HEMO/ONC PROGRESS NOTE ---
DATE: 12/16/2019 CHIEF COMPLAINT: The patient is currently oriented x3 but continues to be confused to situation at times. Vital signs: Temperature 98.8 degrees, blood pressure 102/49, heart rate 111, respirations 21, O2 saturation 95% on room air. HEENT: Normocephalic, atraumatic. Mucous membranes are pale and moist. Sclerae anicteric. Extraocular movements intact. Cardiovascular: S1, S2. The patient is tachycardic. Abdomen: Nondistended. Extremities: Without clubbing, cyanosis, or edema. Neuro: The patient is awake, alert and oriented x2, confused to situation at times. ASSESSMENT/PLAN: 1. Diffuse large B-cell lymphoma status post cycle 1 of R-CHOP on 12/04/2019. We will continue to hold treatment until the patient's acute illness improves. 2. Acute respiratory failure. The patient continues on room air with no respiratory distress. O2 saturation in the high 90s. 3. Altered mental status persist and is intermittent of questionable etiology. Neurology has been consulted. 4. Neutropenia. White blood cell count has improved significantly. Granix has been discontinued. White blood cell count 21,910, ANC is currently 17,740. 5. Anemia. Hemoglobin is currently 8.6. Would continue to monitor and transfuse packed red blood cells if hemoglobin drops below 8.0 or in the setting of active bleeding. 6. We will follow along with you and make further recommendations pending outcomes. The above reflects the history, exam, assessment, and plan of Dr. Rangel. Dictated by RACHEL Simon for Stephen Rangel MD cc: RACHEL Simon MD
--- NOTE | 2019-12-16 19:11 | PULMONOLOGY PROGRESS NOTE ---
DATE: 12/16/2019 SUBJECTIVE: The patient is awake, alert and conversant. He may or may not be completely oriented. He currently denies shortness of breath or any pain. OBJECTIVE: Vital Signs: The patient has been afebrile for the last 24 hours. Blood pressure 104/47, heart rate 87, respiratory rate 14, oxygen saturation 95% on room air. HEENT: Pupils are equal and reactive. Oropharynx appears clear. Neck: Supple. Chest: Reveals faint crackles in the lung bases. Cardiac: S1, S2. Abdomen: Soft with good bowel sounds. Extremities: Without edema. LABORATORIES: White blood count 21,000, hemoglobin 8.6, platelet count 73,000. Sodium 143, potassium 3.2, chloride 96, bicarbonate 26, anion gap 21, BUN 44, creatinine 1.7. Arterial blood gas reveals a pH of 7.61, pCO2 of 26, PO2 of 101 with a lactic acidosis and a lactate of 9.2. Microbiology reveals no new data. IMPRESSION: A 64-year-old with 1. Hyperventilation with alkalemia and significant lactic acidosis. 2. Leukocytosis, possibly related to Granulex. 3. Adrenal insufficiency. 4. Acute renal insufficiency-failure. DISCUSSION: A 64-year-old with problems outlined above. The patient does appear to be improving but he does have a lactic acidosis. It appears discordant with the clinical exam. This may be related to his underlying tumor. PLAN: 1. Continue current antibiotic regimen. 2. Agree with additional fluids per Dr. Cunningham. 3. Follow up arterial blood gas with lactate level tomorrow. cc: Rajat Sanders MD
[2019-12-16] MEDS: MAXIPIME 1 GM in NS 50 ML IV SCH (20:34)
[2019-12-17] MEDS: LOPRESSOR IV SCH ×4 (02:43→20:59)
[2019-12-17 05:21] LABS: ALLEN TEST YES; BE 9.2 mmoll (-3.0-3.0); BLOOD TYPE ARTERIAL; METHB 0.6 % (0.0-1.5); O2HB 93.6 % (95.0-99.0); PCO2(98.6) 39 mmHg (35-45); PO2(98.6) 67 mmHg (60-100); SAMPLE BLOOD; SAO2 95.8 % (95.0-100.0); THB 15.2 g/dL (11.5-17.4); pH(98.6) 7.53 (7.35-7.45)
[2019-12-17 05:24] LABS: MODALITY ROOM AIR
[2019-12-17 06:37] LABS: ALB/GLOB RATIO 1.2; CALCIUM 8.7 mg/dL (8.8-10.2); CREATININE 1.4 mg/dL (0.7-1.2); MAGNESIUM 3.1 mg/dL (1.5-2.7); PHOSPHORUS 2.2 mg/dL (2.7-4.5); POTASSIUM 3.2 mmol/L (3.5-5.1); TOTAL BILIRUBIN 0.65 mg/dL (0.20-1.00); TOTAL PROTEIN 5.5 g/dL (6.3-8.3)
[2019-12-17] MEDS: SYNTHROID IV SCH (06:37)
[2019-12-17 07:43] LABS: BASO# 0.05 X1000 (0.0-0.2); BASO% 0.4 % (0.0-0.8); EOS# 0.01 X1000 (0.0-0.7); EOS% 0.1 % (0.0-10.0); HEMOGLOBIN 7.8 g/dL (14.0-18.0); IMM GRAN# 0.47 X1000 (0.0-0.04); IMM GRAN% 3.3 % (0.0-0.5); LYMPH# 1.31 X1000 (1.2-3.4); LYMPH% 9.2 % (20.5-51.1); MCH 28.7 PG (27-31); MCHC 31.2 g/dL (33-37); MCV 91.9 FL (81-99); MONO# 1.02 X1000 (0.11-0.59); MONO% 7.1 % (1.7-9.3); MPV 12.9 FL (7.4-10.4); NEUT# 11.42 X1000 (1.4-6.5); NEUT% 79.9 % (42.2-75.2); PLT 80 X1000 (130-400); RBC 2.72 XMIL (4.7-6.1); RDW 14.8 % (11.5-14.5); WBC 14.28 X1000 (4.8-10.8)
--- NOTE | 2019-12-17 08:15 | CARDIOLOGY PROGRESS NOTE ---
DATE: 12/17/2019 CHIEF COMPLAINT: Shortness of breath, irregularity heartbeat. SUBJECTIVE: Mr. Moody appears to be somewhat less confused today. He has no complaints. He has been restrained. OBJECTIVE: Vital signs: Blood pressure is 112/66, pulse 101, however when I examined him his pulse was 98. His temperature is 97.7 degrees. His telemetry indicates sinus rhythm. General: He is awake, follows simple commands. He has an NG tube. Chest: Diminished breath sounds without rales. Heart: Sounds are regular and rhythmic. I do not hear any definite gallop or murmur now. Abdomen: Soft, bowel sounds diminished. No hepatomegaly. Extremities: Showed palpable pulses in the feet. Neurologic exam: Follows simple commands. Moves 4 extremities. LABORATORY WORK: White cell count and CBC are pending. Today, his sodium is up again to 149, potassium is down to 3.2, BUN is down to 41, creatinine is down to 1.4. Albumin is 3.0 down from yesterday. Blood gases: pH is better, today is 7.53, pO2 67, pCO2 is 39. He is on room air. We do not have any x-rays today. IMPRESSION: 1. Patient with paroxysmal atrial fibrillation. He is back in sinus rhythm. 2. Ileus. Reason for this is unclear. 3. Recurrent hypernatremia. I wonder if the patient has diabetes insipidus. 4. Lymphoma status post chemotherapy. Yesterday, white cell count showed 16% of unidentified cells out of 21,910. Question of whether the patient is going into some sort of leukemic phase of whatever hematological malignancy he has. 5. 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 6. History of aortic valve replacement with a bioprosthetic valve. 7. History of coronary atherosclerosis without obstruction. RECOMMENDATIONS: At this time, I would continue metoprolol as we are doing and Cardizem. Whenever his oral intake is restored, then we can switch him over to metoprolol by mouth. We will continue to follow. cc: Warren Scott MD
[2019-12-17] MEDS: FOLIC ACID PO SCH (08:42)
[2019-12-17] MEDS: LOPRESSOR PO SCH ×2 (08:42→21:00)
[2019-12-17] MEDS: SOLU-CORTEF IV SCH ×2 (08:44→20:59)
[2019-12-17] MEDS: CARDIZEM 100 MG/NS 100 MG/100 ML IVPB IV SCH (08:44)
[2019-12-17 09:26] LABS: BANDS 10 % (0-1); LYMPHS 4 % (21-51); MONO 2 % (1-9); SEGS 82 % (42-75)
[2019-12-17] MEDS: D5W 1,000 ML IV SCH (10:58)
--- NOTE | 2019-12-17 12:30 | PROGRESS NOTE ---
DATE: 12/17/2019 SUBJECTIVE: No big changes compared with yesterday. He is still oriented to person. He is still sinus rhythm. He has been tachycardic on and off. His white blood cell count decreased from 21 to 14. His hemoglobin dropped a little bit from 8.6 to 7.8. Platelet count seems to be improving, increased from 73 to 80. Lactate level is better from 9.2, decreased to 3.2, but the sodium level is again high. Case has been discussed with Nephrology Department. We put this patient back on D5W and will keep an eye on him. I will recheck his BMP in the afternoon. OBJECTIVE: HEENT: Head normocephalic. No trauma. PERRLA. Neck: Supple. No JVD. No masses. Central trachea. Chest: Clear to auscultation. Some crepitus. Mild crackles at the bases. Cardiovascular: RRR. Abdomen: Soft. Slightly tympanic. Decreased bowel sounds, but present. Extremities: No edema, no clubbing, no cyanosis. Neurological: The patient is awake. He is oriented x1. He is following commands on and off. LABORATORY DATA: WBC 14.2, hemoglobin 7.8, hematocrit 25, platelets 80,000. Lactate level 3.2. Sodium 149, potassium 3.2, chloride 104, bicarbonate 30, BUN 41, creatinine 1.4, glucose 140, calcium 8.7. Phosphorus 2.2, magnesium 3.1. AST 16, ALT 19, alkaline phosphatase 131, albumin 3. ASSESSMENT AND PLAN: 1. Acute hypoxemic respiratory failure secondary to pneumonia, resolved. This patient's oxygen saturation is normal at room air. Continue with the same management for now. Pulmonary Department on board. 2. Pneumonia, resolved. 3. Atrial fibrillation with rapid ventricular response, converted to sinus rhythm. Continue with the same management per Cardiology Department. 4. Pancytopenia, improved. He is no longer neutropenic, but his platelet count is getting better as well. He is anemic. 5. Ileus. I do not have any reported bowel movement for the past few days. Gastroenterology Department on board. Will continue with the same management. I am not sure why this patient has an ileus. 6. Hypernatremia. I will put this patient back on D5W. Case has been discussed with Nephrology Department. 7. Hypokalemia. I will replace the potassium as well as the phosphorus. 8. Metabolic encephalopathy. I am not sure about his baseline. Will monitor. 9. Diffuse B-cell lymphoma, status post chemotherapy. Continue following the recommendations of Oncology Department. 10. High anion gap metabolic acidosis with lactic acidosis, seems to be improving. 11. Hepatitis C, aware. Gastroenterology Department on board. 12. Right pyelonephritis. Continue with antibiotics. 13. Status post urethral dilation with right retrograde pyelogram and placement of 6-Slov[place]/24 cm right ureteral stent done on 11/21/2019 due to solitary right kidney, right hydronephrosis with ureteral obstruction, and meatal stricture. Will continue with the same management for now. cc: Elijah Blood MD
--- NOTE | 2019-12-17 14:31 | NEUROLOGY PROGRESS NOTE ---
DATE: 12/17/2019 SUBJECTIVE: Mr. Moody has been reported to be confused intermittently. He reports no headache. OBJECTIVE: At the time of my visit, he is awake, alert, attentive, and having appropriate conversation with me. He was oriented to the [facility], president. He was not certain about the time and date. IMPRESSION AND PLAN: History of recent cognitive impairment, family reporting this has been associated with his lymphoma treatment. In the setting of baseline cognitive impairment, we often see a fluctuating degree of encephalopathy with any toxic or metabolic disturbance, particularly with ICU confinement. I do not see evidence of increased intracranial pressure, focal cerebral lesion, [employer]ANGER infection. I do not have any specific suggestion from a Neurology standpoint today. Thanks for asking us to see Mr. Moody. cc: MD DILAN Wilkerson III
--- NOTE | 2019-12-17 14:39 | NEPHROLOGY PROGRESS NOTE ---
DATE: 12/17/2019 SUBJECTIVE: Mr. Moody is without complaints today. Did not speak much. OBJECTIVE: Vital Signs: Blood pressure 157/81, heart rate 96, respirations 22, temperature 99.1 degrees. Intake 1.6 L; output 1.3 L. General: No acute distress. Skin: Warm and dry. Neck: Neck veins are not distended. Heart: Regular. No gallops. Lungs: Equal. No crackles. Abdomen: Soft. Extremities: Minimal edema. IMPRESSION: 1. Acute kidney injury. Resolved. 2. Metabolic acidosis. Resolved. Likely secondary to linezolid. 3. Hypernatremia. Change intravenous fluids to D5 water. We will sign off, but if we can be of further assistance, please do not hesitate to call. cc: Ángel Cunningham MD
--- NOTE | 2019-12-17 16:35 | GASTROENTEROLOGY PROGRESS NOTE ---
DATE: 12/17/2019 SUBJECTIVE: Patient was awake, he was alert, but still pleasantly confused. He was still in restraints. Physical Therapy was there working with him. I did speak with the nurse. He had about 200 mL of residual from the clamped NG. She states that it is still a maroonish blood- tinged color. Hemoglobin and hematocrit today is 7.8 and 25.0. OBJECTIVE: Vital Signs: Temperature 99.1 degrees, pulse 84, respirations 17, blood pressure 162/94. General: Patient is awake, but pleasantly confused. Abdomen: Soft, decreased bowel sounds, but hypoactive. LABORATORY: Hematology: WBC 14.28, hemoglobin 7.8, hematocrit 25.0, platelets 80,000. Chemistry: Sodium 149, potassium 3.2, chloride 104, CO2 30, BUN 41, creatinine 1.4, glucose 140, calcium 8.7, phosphorus 2.2, magnesium 3.1. ASSESSMENT AND PLAN: 1. Respiratory failure, resolved. Patient is on room air. 2. History of pneumonia. 3. Atrial fibrillation. Continue recommendation by Cardiology. 4. Ileus. Still do not see where he has had a bowel movement. He has had 2 days of milk of magnesia and Dulcolax suppository. 5. Electrolyte imbalance. Continue replacement. 6. Metabolic encephalopathy. The patient continues to have some confusion and is in restraints. 7. Diffuse B-cell lymphoma, status post a round of chemotherapy. Oncology following, chemotherapy is currently on hold. 8. We will continue to follow and further plans will be made according to his progress. I have discussed this case with Dr. Palencia. Dictated by RACHEL Leslie for Supa Palencia MD cc: RACHEL Bonilla MD
[2019-12-17 18:39] LABS: AGAP 15; BUN 39 mg/dL (8-22); CALCIUM 8.9 mg/dL (8.8-10.2); CHLORIDE 106 mmol/L (98-107); COSMO 308; CREATININE 1.2 mg/dL (0.7-1.2); ESTIMATED GFR > 60; GLUCOSE 138 mg/dL (70-104); POTASSIUM 3.1 mmol/L (3.5-5.1); SODIUM 149 mmol/L (136-145); TCO2 28 mmol/L (25-35)
[2019-12-17] MEDS: MAXIPIME 1 GM in NS 50 ML IV SCH (21:00)
[2019-12-18] MEDS: D5W 1,000 ML IV SCH (00:13)
[2019-12-18] MEDS: ATIVAN IV PRN ×3 (00:13→20:15)
--- NOTE | 2019-12-18 01:03 | PULMONOLOGY PROGRESS NOTE ---
DATE: 12/17/2019 SUBJECTIVE: The patient is awake, alert, and conversant. He is without complaints. OBJECTIVE: Vital Signs: The patient has been afebrile for the last 24 hours. Blood pressure 118/81, heart rate 95, respiratory rate 25, oxygen saturation 95%. HEENT: Pupils are equal and reactive. Oropharynx appears clear. Neck: Supple. Chest: Reveals good air entry bilaterally without wheezing or rhonchi. Cardiac: S1-S2. Abdomen: Soft. Extremities: Reveal trace edema. LABORATORIES: White blood count 13.4, hemoglobin 7.8, platelet count 80,000. Arterial blood gas reveals a pH 7.53, pCO2 of 39, pO2 of 67 with a lactate which is decreased to 3.2. Sodium 149, potassium 3.1, chloride 106, bicarb 28, BUN 39, creatinine 1.2. IMPRESSION: 1. A 64-year-old with resolving lactic acidosis. 2. Leukocytosis following chemotherapy and Granulex. 3. Acute renal insufficiency. 4. Adrenal insufficiency. 5. Respiratory failure, which has resolved. DISCUSSION: A 64-year-old with problems outlined above. Pulmonary issues are resolving. His lactic acidosis is resolving. PLAN: 1. Complete antibiotic regimen. 2. Fluid management per Nephrology. 3. No additional recommendations. We will sign off. Please reconsult if necessary. cc: Rajat Sanders MD
[2019-12-18 03:55] LABS: BASO# 0.03 X1000 (0.0-0.2); BASO% 0.3 % (0.0-0.8); HEMATOCRIT 23.4 % (42.0-52.0); HEMOGLOBIN 7.4 g/dL (14.0-18.0); IMM GRAN# 0.18 X1000 (0.0-0.04); IMM GRAN% 1.9 % (0.0-0.5); LYMPH# 1.62 X1000 (1.2-3.4); LYMPH% 17.4 % (20.5-51.1); MCH 29.1 PG (27-31); MCHC 31.6 g/dL (33-37); MCV 92.1 FL (81-99); MONO# 1.15 X1000 (0.11-0.59); MONO% 12.4 % (1.7-9.3); NEUT# 6.31 X1000 (1.4-6.5); PLT 101 X1000 (130-400); RBC 2.54 XMIL (4.7-6.1); RDW 14.9 % (11.5-14.5); WBC 9.29 X1000 (4.8-10.8)
[2019-12-18 03:58] LABS: AGAP 11; ALB/GLOB RATIO 1.8; ALBUMIN 3.3 g/dL (3.5-5.0); ALKALINE PHOSPHATASE 114 U/L (32-122); BUN 33 mg/dL (8-22); CALCIUM 8.7 mg/dL (8.8-10.2); CHLORIDE 107 mmol/L (98-107); COSMO 306; CREATININE 1.1 mg/dL (0.7-1.2); ESTIMATED GFR > 60; GLUCOSE 139 mg/dL (70-104); GOT 17 U/L (10-34); GPT 16 U/L (10-44); POTASSIUM 2.9 mmol/L (3.5-5.1); SODIUM 149 mmol/L (136-145); TCO2 31 mmol/L (25-35); TOTAL BILIRUBIN 0.72 mg/dL (0.20-1.00); TOTAL PROTEIN 5.1 g/dL (6.3-8.3)
[2019-12-18] MEDS: CARDIZEM 100 MG/NS 100 MG/100 ML IVPB IV SCH ×3 (05:34→22:30)
[2019-12-18] MEDS: LOPRESSOR IV SCH ×3 (05:38→18:13)
[2019-12-18] MEDS: SYNTHROID IV SCH (07:08)
[2019-12-18] MEDS ORDERED: POTASSIUM CHLORIDE 40 MEQ/SWI 40 MEQ/100 ML IVPB IV ONE (08:00)
[2019-12-18] MEDS: SOLU-CORTEF IV SCH ×2 (08:09→20:15)
[2019-12-18] MEDS: POTASSIUM CHLORIDE 20 MEQ in D5W 1,000 ML IV SCH ×2 (08:09→20:15)
--- NOTE | 2019-12-18 09:07 | Diag Imaging Result Doc PS360 ---
EXAM: CHEST-PORTABLE 12/18/2019 HISTORY: SOB TECHNIQUE: AP portable upright at 0837 COMMENT: Compared to the previous study of 12/16/2019 there has been no significant change. IMPRESSION: Stable chest. Electronically signed by Luis Antonio Hoffmann 12/18/2019 9:05 AM
--- NOTE | 2019-12-18 09:11 | Diag Imaging Result Doc PS360 ---
EXAM: ABDOMEN FLAT/UPRIGHT 12/18/2019 HISTORY: sbo vs Ileus TECHNIQUE: Flat and upright abdomen COMMENT: There is an NG tube in the stomach. There is gas throughout the colon. The stomach and small bowel are not distended. There is a right ureteral stent. There is no evidence organomegaly or mass. IMPRESSION: Questionable colonic ileus otherwise nonspecific abdomen. Electronically signed by Luis Antonio Hoffmann 12/18/2019 9:09 AM
[2019-12-18] MEDS: FOLIC ACID PO SCH (09:34)
[2019-12-18] MEDS: LOPRESSOR PO SCH ×2 (09:34→20:15)
--- NOTE | 2019-12-18 11:01 | NEUROLOGY PROGRESS NOTE ---
DATE: 12/18/2019 Mr. Moody is awake and alert. He seems a little bit more sluggish this morning compared to my prior visits. He does not have any specific complaint. He continues partially oriented. Lab shows sodium stable at 149, BUN down to 33, moderately elevated blood sugars, calcium stable at 8.7. I do not have any new thoughts or new suggestions from a neurology standpoint. Thanks for asking us to see Mr. Moody. cc: Aren Helms III, MD
--- NOTE | 2019-12-18 12:21 | PROGRESS NOTE ---
DATE: 12/18/2019 SUBJECTIVE: The patient is in bed. His acute kidney injury is getting better. I have requested a dietitian consult to see if we need to put this patient on TPN because of his ileus or bowel obstruction. I also requested an abdomen x-ray that showed the possibility of ileus, x-ray seems to be stable. His hemoglobin dropped a little bit from 7.8 to 7.4. His sodium level is still high, I will continue with the D5W. Nephrology Department on board. OBJECTIVE: Vital Signs: Temperature 98.9 degrees, pulse 109, respiratory rate 26, blood pressure 127/82, oxygen saturation 95% on room air. HEENT: Head normocephalic, no trauma. PERRLA. Neck: Supple. No JVD. No masses. Central trachea. Chest: Clear to auscultation. Some crepitus-like crackles at the bases. Cardiovascular: Regular rate and rhythm. Abdomen: Soft. Slightly tympanic. Decreased bowel sounds but present. Extremities: No edema. No clubbing. No cyanosis. Neurological: Patient is awake, he is oriented x1. He is following commands on and off. He has been confused. LABORATORY DATA: WBC 9.2, hemoglobin 7.4, hematocrit 23.4, platelets 101,000. Sodium 149, potassium 2.9, chloride 107, bicarbonate 31, BUN 33, creatinine 1.1, glucose 139, calcium 8.7, albumin 3.3. ASSESSMENT AND PLAN: 1. Acute hypoxemic respiratory failure secondary to pneumonia, resolved. This patient's oxygen saturation is stable at room air. Continue with the same management for now. Pulmonary Department on board. 2. Pneumonia, resolved. 3. Atrial fibrillation with rapid ventricular response, converted to sinus rhythm. Cardiology on board. We will continue with the same management for now and once this patient is able to tolerate p.o., we will switch the treatment from IV to by mouth. 4. Pancytopenia, improving. He is no longer neutropenic. His platelet count is getting better. He is still anemic. We will monitor this closely. 5. Ileus. We do not have a reported bowel movement for the past few days. Gastroenterology has been following this patient closely. I have been replacing electrolytes. He has not been eating so I will go ahead and ask the dietitian to start this patient on TPN, and also I have requested an evaluation with Surgery Department to see if they have another idea. 6. Hypernatremia. Continue with D5 This has been discussed with Nephrology Department. 7. Hypokalemia. I will replace the potassium. 8. Metabolic encephalopathy. I am not quite sure about his baseline, we will monitor. 9. Diffuse B-cell lymphoma status post chemotherapy. I will continue to follow the recommendations of Oncology Department. 10. Anion gap metabolic acidosis with lactic acidosis, seems to be improving. 11. Hepatitis C, aware. Gastroenterology Department on board. 12. Right pyelonephritis. Continue with antibiotics. 13. Status post urethral dilation with right retrograde pyelogram and placement of 6-Kyrgyz/24 cm right ureteral stent done on 11/21/2019, he has also a solitary right kidney and right hydronephrosis with ureteral obstruction and meatal stricture. I have requested an evaluation by the dietitian to see if we need to start TPN on this patient, also Surgery Department. I am not quite sure why this patient is having an ileus. His kidney function is getting better, good urine output. He is still hypernatremic. Continue with D5W. CRITICAL CARE TIME: 35 minutes. cc: Elijah Blood MD
[2019-12-18 13:14] LABS: MAGNESIUM 2.5 mg/dL (1.5-2.7); PHOSPHORUS 1.7 mg/dL (2.7-4.5)
[2019-12-18] MEDS ORDERED: POTASSIUM PHOSPHATE 15 MMOL in NS 250 ML IV ONE (13:44)
[2019-12-18] MEDS ORDERED: NS 500 ML IV ONE (14:30)
--- NOTE | 2019-12-18 15:43 | GENERAL SURGERY CONSULTATION ---
DATE: 12/18/2019 REQUESTING PHYSICIAN: Dr. Gerber. REASON FOR CONSULTATION: Consult is regarding a bowel obstruction. HISTORY OF PRESENT ILLNESS: A 64-year-old gentleman with a lymphoma who is currently getting treated, who came in initially with altered mental status. He has been in the hospital since the and has not had a bowel movement since then. He has had several imaging studies done. Now the most recent one shows potential for a colonic ileus with some gaseous distention in the colon but no small bowel gas. Of note also, they have had an NG tube in place but it is currently clamped, but it looks like it is dark fluid coming out of it. I was asked to weigh an opinion. Patient is altered and so he cannot give me any further history, so I have reviewed his medical chart from his date of admission. PAST MEDICAL HISTORY: Includes porphyria cutanea tarda, thrombocytopenia, lymphoma, anemia, history of prostate cancer. PAST SURGICAL HISTORY: Includes port placement. Full note is reviewed. FAMILY HISTORY: Unobtainable secondary to patient's mental status. ALLERGIES: None reported. HOME MEDICATIONS: MAR reviewed. SOCIAL HISTORY: Former smoker. REVIEW OF SYSTEMS: Cannot obtain secondary to patient's mental status. PHYSICAL EXAMINATION: Vital Signs: The patient is currently afebrile. Pulse 104, blood pressure 133/70. General Examination: No acute distress. Somewhat altered, male, looks stated age. HEENT: Normocephalic, atraumatic. Pupils equal, round, reactive to light. Mucous membranes moist. Oropharynx benign. Neck: Supple. Trachea midline. Cardiovascular: Regular rate and rhythm. Lungs: Grossly clear. Abdomen: Soft. No real distention. Nontender. Some faint bowel sounds auscultated. NG tube in place with dark gastric contents. Extremities: Moves all extremities. Neurologic: Confused. Skin: No signs of jaundice. Vascular: All extremities perfused. LABORATORY: White blood cell count is normal, hematocrit is 23, platelet count 101,000. Remainder of labs reviewed. Imaging reviewed and noted above. ASSESSMENT AND PLAN: A 64-year-old gentleman with a colonic ileus. Colonic ileus. At this time, recommend to continue current treatment. He does have some bowel sounds so he may just be slow to wake up. We will just continue to monitor for his intestines. We will continue to monitor for right now and make further recommendations in the future. I appreciate the consult. cc: Rodney Blum MD MTDYenifer
[2019-12-18] MEDS: DUONEB (A & A) INH PRN (16:39)
[2019-12-18] MEDS ORDERED: CALMOSEPTINE OINTMENT TOP PRN (18:21)
--- NOTE | 2019-12-18 19:00 | HEMO/ONC PROGRESS NOTE ---
DATE: 12/18/2019 CHIEF COMPLAINT: Ongoing confusion. PHYSICAL EXAM: Vital Signs: Temperature 98.1, blood pressure 133/71, heart rate 99, respirations 23, O2 saturation 95% on room air. HEENT: Normocephalic, atraumatic. Mucous membranes are pale and somewhat dry. Sclerae anicteric. Extraocular movements intact. CV: S1, S2. The patient is tachycardic. Chest: Respirations are nonlabored. Abdomen: Nondistended, nontender. Extremities: No clubbing, cyanosis, or edema. The patient is wearing protective boots. Neurologic: The patient is awake, alert, oriented x0. LABORATORY DATA: Hemoglobin 7.4, hematocrit 23.4. White blood cell count 9.29, platelets 101,000. Sodium 149, potassium 2.9, chloride 107, CO2 is 31, BUN 33, creatinine 1.1 and glucose is 139. ASSESSMENT AND PLAN: 1. Diffuse large B-cell lymphoma, status post cycle 1 of R-CHOP on 12/04/2019. We will continue to hold treatment until the patient's acute illness improves. 2. Acute respiratory failure. The patient continues on room air with no acute respiratory distress. O2 saturation is maintained in the high 90s. 3. Altered mental status, which is persistent and of questionable etiology. Neuro workup was negative for any significant finding. 4. Neutropenia, white blood cell count has significantly improved, status post Granix. White blood cell count today 9290, ANC is currently 6031. 5. Anemia. Hemoglobin has decreased to 7.4. The patient will receive 1 unit packed red blood cells today. We will continue to monitor CBC and transfuse 1 unit packed red blood cells if hemoglobin drops below 8.0 or in the setting of active bleeding. 6. We will follow along with you and make further recommendations pending outcomes. The above reflects the history, exam, assessment and plan of Dr. Rangel. Dictated by RACHEL Simon for Stephen Rangel MD cc: RACHEL Simon MD
[2019-12-18] MEDS: MAXIPIME 1 GM in NS 50 ML IV SCH (20:15)
[2019-12-19] MEDS: ATIVAN IV PRN ×2 (00:50→04:36)
[2019-12-19] MEDS: LOPRESSOR IV SCH ×4 (00:50→18:20)
[2019-12-19 04:59] LABS: BLOOD TYPE ARTERIAL; SAMPLE BLOOD
[2019-12-19 05:00] LABS: ALLEN TEST YES; BE 5.8 mmoll (-3.0-3.0); HCO3-(ACT) 29.5 mmoll (20.0-26.0); METHB 0.6 % (0.0-1.5); O2(CT) 7.3 mL/dL (15.0-23.0); O2HB 97.6 % (95.0-99.0); PCO2(98.6) 38 mmHg (35-45); PO2(98.6) 108 mmHg (60-100); SAO2 99.7 % (95.0-100.0); THB 5.1 g/dL (11.5-17.4)
[2019-12-19 05:02] LABS: MODALITY VENTIMASK
[2019-12-19] MEDS: CARDIZEM 100 MG/NS 100 MG/100 ML IVPB IV SCH ×2 (05:31→11:38)
--- NOTE | 2019-12-19 06:03 | GENERAL SURGERY PROGRESS NOTE ---
DATE: 12/19/2019 SUBJECTIVE: Nursing staff reports no major changes. He had a smear of a bowel movement but nothing major. OBJECTIVE: Vital Signs: The patient is currently afebrile. Vital signs are stable. He is a little bit tachypneic, but his blood pressure is fine. General: No acute distress. Resting. HEENT: Normocephalic, atraumatic. Pupils equal, round, and reactive to light. Mucous membranes moist. Oropharynx benign. Neck: Supple. Trachea midline. Cardiovascular: Regular rate and rhythm. Lungs: Some tachypnea. Abdomen: Soft, nondistended, does not appear to be tender. Hypoactive bowel sounds auscultated. Extremities: Moves all extremities. Neurologic: The patient is resting. Vascular: All extremities perfused. Skin: No signs of jaundice. LABORATORY: None this morning as of yet. ABG reviewed. ASSESSMENT AND PLAN: A 64-year-old gentleman with a colonic ileus. Colonic ileus: At this time, still with hypoactive bowel sounds. I am not opposed to trying tube feeds. His residuals have been low. For the most part it looks like it is a colonic issue. We will need to follow him clinically. No indications for surgical intervention at this time. cc: Rodney Blum MD
[2019-12-19 06:13] LABS: BASO# 0.08 X1000 (0.0-0.2); BASO% 0.6 % (0.0-0.8); EOS# 0.06 X1000 (0.0-0.7); EOS% 0.4 % (0.0-10.0); HEMATOCRIT 28.6 % (42.0-52.0); HEMOGLOBIN 9.1 g/dL (14.0-18.0); IMM GRAN# 0.81 X1000 (0.0-0.04); IMM GRAN% 5.8 % (0.0-0.5); LYMPH# 2.11 X1000 (1.2-3.4); LYMPH% 15.2 % (20.5-51.1); MCH 29.4 PG (27-31); MCHC 31.8 g/dL (33-37); MCV 92.6 FL (81-99); MONO# 1.43 X1000 (0.11-0.59); MONO% 10.3 % (1.7-9.3); MPV 12.7 FL (7.4-10.4); NEUT# 9.41 X1000 (1.4-6.5); NEUT% 67.7 % (42.2-75.2); PLT 99 X1000 (130-400); RBC 3.09 XMIL (4.7-6.1); RDW 14.9 % (11.5-14.5)
[2019-12-19] MEDS: SYNTHROID IV SCH (06:34)
[2019-12-19] MEDS: SODIUM CHLORIDE 0.9% INJ PRN (06:35)
[2019-12-19 06:45] LABS: AGAP 14; ALB/GLOB RATIO 1.8; ALBUMIN 3.2 g/dL (3.5-5.0); ALKALINE PHOSPHATASE 129 U/L (32-122); BUN 22 mg/dL (8-22); CALCIUM 8.5 mg/dL (8.8-10.2); CHLORIDE 110 mmol/L (98-107); COSMO 302; ESTIMATED GFR > 60; GLUCOSE 115 mg/dL (70-104); GOT 38 U/L (10-34); GPT 28 U/L (10-44); MAGNESIUM 2.1 mg/dL (1.5-2.7); PHOSPHORUS 2.2 mg/dL (2.7-4.5); POTASSIUM 3.8 mmol/L (3.5-5.1); PREALBUMIN 20.2 mg/dL (20-40); SODIUM 150 mmol/L (136-145); TCO2 26 mmol/L (25-35)
[2019-12-19 06:47] LABS: LYMPHS 12 % (21-51); MONO 9 % (1-9); NRBC 3 % (0-0); SEGS 79 % (42-75)
--- NOTE | 2019-12-19 06:56 | Diag Imaging Result Doc PS360 ---
EXAM: CHEST-PORTABLE HISTORY: dyspnea TECHNIQUE: Single view COMPARISON: 12/18/2019 FINDINGS: No change in the right jugular portacatheter or the nasogastric tube. The lungs are well expanded. No cardiomegaly. No pneumonia. No pleural effusions identified. IMPRESSION: Stable chest Electronically signed by Trent Lemus 12/19/2019 6:54 AM
--- NOTE | 2019-12-19 07:09 | Diag Imaging Result Doc PS360 ---
EXAM: ABDOMEN FLAT/UPRIGHT HISTORY: sbo TECHNIQUE: Two views COMPARISON: 12/18/2019 FINDINGS: Nasogastric tube overlies the stomach. There is a right ureteral stent. No organomegaly. No bowel obstruction. Prominent atherosclerosis. IMPRESSION: No bowel obstruction. Electronically signed by Trent Lemus 12/19/2019 7:07 AM
[2019-12-19] MEDS: SOLU-CORTEF IV SCH ×2 (07:28→20:03)
[2019-12-19] MEDS: POTASSIUM CHLORIDE 20 MEQ in D5W 1,000 ML IV SCH (09:05)
[2019-12-19] MEDS: LOPRESSOR PO SCH ×2 (09:12→20:00)
[2019-12-19] MEDS: FOLIC ACID PO SCH (09:12)
[2019-12-19] MEDS: DUONEB (A & A) INH PRN ×2 (09:19→15:52)
[2019-12-19] MEDS ORDERED: POTASSIUM PHOSPHATE 40 MEQ in NS 250 ML IV ONE (10:53)
--- NOTE | 2019-12-19 11:29 | PROGRESS NOTE ---
DATE: 12/19/2019 SUBJECTIVE: I have seen and examined Mr. Moody this morning. He continues to be in the Critical Care Unit. For the most part, he was barely engaging in the conversation. He still looks slightly altered. He would just say yes and no, but then go back to sleep. OBJECTIVE: Vital signs: Blood pressure is 103/67, pulse of 87, respiration is 24, temperature 97.3 degrees, patient is saturating 92% on a Venturi mask. General: Mr. Moody is a 64-year- old elderly gentleman. He is in bed. He is on Venturi mask. He is saturating well. HEENT: Mucosa is pink and moist. Anicteric. Acyanotic. Neck: Supple. I did not see any JVD. Chest: There is a port on the right anterior chest wall. Patient has an old sternotomy scar. Respiratory System: There is good air entry bilaterally. Did not hear any crepitations, no rhonchi. Cardiovascular: Regular rate and rhythm. No murmurs. Gastrointestinal: Abdomen is soft, nontender. Bowel sounds present but hypoactive. Extremities: No pedal edema. Central nervous system: Patient is drowsy, sleepy, but easily will move his extremities to painful stimulation. He did say he was doing okay, but he would not respond verbally to anything else. LABORATORY DATA: WBC is 13.90, hemoglobin of 9.1, platelet count of 99,000. Chemistry is also reviewed. Sodium of 150, rest of chemistry is unremarkable. Phosphorus is still low. ASSESSMENT: 1. Acute hypoxemic respiratory failure on presentation. The patient was intubated, was successfully extubated on 12/10/2019. He continues to be on Venturi mask for adequate oxygenation. We are going to continue to monitor. Pulmonary Medicine is on board. 2. Diffuse multifocal pneumonia. The patient has responded well to antimicrobial coverage. Follow-up chest x-rays seem to show remarkable improvement. Today is day 6 on cefepime. 3. Atrial fibrillation with rapid ventricular response during the hospital course. This has spontaneously converted to sinus. Cardiology is on board. Patient is on diltiazem. 4. Severe pancytopenia with neutropenia due to chemotherapy, improved. 5. Ileus. 6. History of diffuse B-cell lymphoma. Patient is status post R-CHOP treatment on 12/04/2019. I understand that was his first therapy. 7. History of hepatitis C, aware. 8. Electrolyte abnormalities including hypophosphatemia and hypernatremia. We will continue to address. 9. Solitary kidney with a stent in the right ureter done on 11/21/2019. PLAN: For now, we are going continue with the D5 with potassium. I will also replace his phosphorus. We will continue with the rest of his antimicrobial coverage and follow up with further recommendations from the subspecialties involved with his care. In terms of his nutrition, we are going to start him on the low tube feedings. We are going to consult dietitian today to start tube feedings. cc: Jaren Tejeda MD
[2019-12-19] MEDS: D5W + KCL 20 MEQ 1,000 ML IV SCH ×2 (11:40→19:53)
--- NOTE | 2019-12-19 14:51 | CARDIOLOGY PROGRESS NOTE ---
DATE: 12/19/2019 CHIEF COMPLAINT: Irregular heartbeat, shortness of breath. SUBJECTIVE: Mr. Moody remains somewhat obtunded. His heart rate remains within normal range. He is in sinus rhythm. OBJECTIVE: Blood pressure is 103/67, pulse 85, respirations 24, temperature is 97.2. He is lethargic. HEENT unremarkable. Chest: Diminished breath sounds at bases. Heart sounds are regular and rhythm, no gallop or murmur appears to be present. Abdomen is soft. Extremities showed no obvious edema. Neurologic: Very lethargic. NG tube in place. DIAGNOSTIC DATA: Blood work today shows white cell count is 13,900, hemoglobin 9.1. His sodium is 150, potassium 2.8, BUN is 22, creatinine 1.0. The pH is 7.5, pO2 is 108. IMPRESSION: 1. The patient has paroxysmal atrial fibrillation. Right now, he is back in sinus rhythm. 2. Ileus. This appears to be resolving. They have reinstated tube feedings at a low rate to test the situation. 3. The patient remains hypernatremic. 4. Lymphoma with status post chemotherapy. 5. Status post aortic valve replacement with a bioprosthesis. 6. Coronary artery disease, stable. 7. 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 RECOMMENDATIONS: From a cardiology viewpoint, I would continue with the IV beta man and Cardizem until his GI tract is fully functional, and then we can switch the medications to the oral route, and we will follow the patient as needed. cc: Warren Scott MD
--- NOTE | 2019-12-19 15:02 | NEUROLOGY PROGRESS NOTE ---
DATE: 12/19/2019 Mr. Moody is a little bit more sluggish today, more difficult for me to keep him attentive. WBC is 13,900. He continues anemic with hematocrit 28.6, hemoglobin 9.1 today. Sodium is 150, BUN normal at 22, calcium 8.5, magnesium 2.2. He continues afebrile. Systolic blood pressures have ranged 90s-130s over the last 24 hours. I do not have any new suggestion from Neurology standpoint. There is clear history of baseline cognitive impairment, and there are toxic and metabolic problems to explain recent exacerbation. Thanks for asking Neurology to see Mr. Moody. cc: MD DILAN Wilkerson III
--- NOTE | 2019-12-19 18:39 | GASTROENTEROLOGY PROGRESS NOTE ---
DATE: 12/19/2019 SUBJECTIVE: Patient was asleep at the time of our visit. He did arouse some with stimulus. No real communication at that time. The patient has been started on tube feedings by nasogastric tube. OBJECTIVE: Vital signs: Temperature 97.2 degrees, pulse 92, respirations 13, blood pressure 102/78. Abdomen: Soft. No pain elicited with palpation. LABORATORY: Hematology: WBC 13.90, hemoglobin 9.1, hematocrit 28.6, MCV 92.6, platelets 99,000. Chemistry: Sodium 150, potassium 3.8, chloride 110, CO2 26, BUN 22, creatinine 1.0, glucose 115, calcium 8.5, phosphorus 2.2, magnesium 2.1, total bilirubin 1.0, AST 38, ALT 28, alkaline phosphatase 129. ASSESSMENT: 1. Recent acute respiratory failure. Patient has been intubated and on oxygen. 2. Pneumonia. Continue current management. 3. Atrial fibrillation. Seen by Cardiology. 4. Ileus. 5. Electrolyte imbalance. Continue replacement as needed. 6. Anemia. The patient has received packed red blood cells. 7. Nutritional requirements. Patient has been started on tube feedings. PLAN: We will continue to follow and further plans to be made as needed. His abdomen is soft today. We will see how he does with tube feedings and further plans will be made as needed. Patient was also seen by Dr. Palencia. Dictated by RACHEL Leslie for Supa Palencia MD cc: RACHEL Bonilla MD
[2019-12-19 19:30] LABS: HEPATITIS C GENOTYPE SEE COMMENTS
[2019-12-19] MEDS: MAXIPIME 1 GM in NS 50 ML IV SCH (20:03)
[2019-12-20] MEDS: CARDIZEM 100 MG/NS 100 MG/100 ML IVPB IV SCH (00:03)
[2019-12-20] MEDS: LOPRESSOR IV SCH ×3 (00:45→11:42)
[2019-12-20 06:13] LABS: BASO# 0.02 X1000 (0.0-0.2); BASO% 0.1 % (0.0-0.8); EOS# 0.01 X1000 (0.0-0.7); EOS% 0.1 % (0.0-10.0); HEMOGLOBIN 8.3 g/dL (14.0-18.0); IMM GRAN# 1.12 X1000 (0.0-0.04); IMM GRAN% 8.3 % (0.0-0.5); LYMPH% 15.6 % (20.5-51.1); MCH 29.2 PG (27-31); MCHC 31.9 g/dL (33-37); MCV 91.5 FL (81-99); MONO% 8.2 % (1.7-9.3); MPV 11.6 FL (7.4-10.4); NEUT% 67.7 % (42.2-75.2); PLT 108 X1000 (130-400); RBC 2.84 XMIL (4.7-6.1); RDW 14.8 % (11.5-14.5); WBC 13.45 X1000 (4.8-10.8)
[2019-12-20 06:22] LABS: AGAP 12; ALB/GLOB RATIO 1.2; ALBUMIN 2.9 g/dL (3.5-5.0); ALKALINE PHOSPHATASE 135 U/L (32-122); BUN 15 mg/dL (8-22); CALCIUM 8.5 mg/dL (8.8-10.2); CHLORIDE 109 mmol/L (98-107); COSMO 293; CREATININE 0.7 mg/dL (0.7-1.2); ESTIMATED GFR > 60; GLUCOSE 123 mg/dL (70-104); GOT 32 U/L (10-34); GPT 36 U/L (10-44); MAGNESIUM 1.9 mg/dL (1.5-2.7); PHOSPHORUS 1.7 mg/dL (2.7-4.5); POTASSIUM 3.6 mmol/L (3.5-5.1); SODIUM 146 mmol/L (136-145); TCO2 25 mmol/L (25-35); TOTAL BILIRUBIN 0.87 mg/dL (0.20-1.00); TOTAL PROTEIN 5.3 g/dL (6.3-8.3)
[2019-12-20] MEDS: SYNTHROID IV SCH (06:22)
[2019-12-20] MEDS: D5W + KCL 20 MEQ 1,000 ML IV SCH ×3 (06:22→17:01)
[2019-12-20] MEDS ORDERED: POTASSIUM PHOSPHATE 40 MEQ in NS 250 ML IV ONE (07:23)
[2019-12-20] MEDS: SOLU-CORTEF IV SCH ×2 (08:37→20:39)
[2019-12-20] MEDS: LOPRESSOR PO SCH ×2 (08:37→20:39)
[2019-12-20] MEDS: FOLIC ACID PO SCH (08:37)
--- NOTE | 2019-12-20 12:53 | PROGRESS NOTE ---
DATE: 12/20/2019 SUBJECTIVE: I have seen and examined Mr. Moody today in the Critical Care Unit. He refers to be doing well. He said he had a mild bowel movement. He is tolerating his NG tube feedings and he denies any abdominal pain. OBJECTIVE: Vital signs: Blood pressure is 123/82, pulse of 87, respiration is 21, temperature is 97.6 degrees, patient is saturating 100% on room air. General: Mr. Moody is a 64-year-old gentleman. He is in bed. He is not in any cardiopulmonary distress. NG tube is in place. HEENT: Mucosa is pink and moist. Anicteric. Acyanotic. Neck: Supple. Respiratory system: There is good air entry bilateral. There are no crepitations, no rhonchi. There is an old sternotomy scar on the anterior chest wall. The patient also has a port on the right anterior chest wall. Cardiovascular: Regular rate and rhythm. There are no murmurs, no rubs, no gallops. Gastrointestinal: Abdomen is soft, nontender. Bowel sounds present. Extremities: No pedal edema. NEWSPAPER INSERTER: Patient is awake, alert, follows commands. INTAKE AND OUTPUT: Urine output is 1200. He is currently negative balance of 441 during the hospital course. LABORATORY DATA: WBC is 13.45, hemoglobin is 8.3, platelet count of 108,000. Chemistry is also reviewed. Sodium is down to 146. The rest of chemistry is unremarkable. IMAGING STUDIES: None for this morning. CURRENT MEDICATIONS: Have all been reviewed. He is still on cefepime, today is day 8. ASSESSMENT: 1. Acute hypoxemic respiratory failure on presentation. Patient was successfully extubated on 12/10/2019. He currently cycles between supplemental nasal cannula oxygenation and room air, he seems to be doing well. 2. Diffuse multifocal pneumonia. Patient is on cefepime, today is day 8. Follow-up x-ray from yesterday has shown remarkable improvement. 3. Atrial fibrillation with rapid ventricular response. During the hospital course, patient has spontaneously converted to sinus. He was on Cardizem drip. He is currently switched to p.o. metoprolol. 4. Severe pancytopenia with neutropenia on admission due to chemotherapy, resolved. 5. Ileus, improved. 6. History of diffuse B-cell lymphoma. The patient is status post first R-CHOP treatment on 12/04/2019. 7. History of hepatitis C. PCR and genotype have been reviewed. 8. Solitary kidney with stent in the right ureter done on 11/21/2019. 9. Altered mental status with hallucination secondary to ICU delirium noted. PLAN: In general, I think Mr. Moody is doing a lot better. We are going to start him on a full liquid diet and see if he tolerates. If it does, then we will discontinue the NG tube feeding, advance his diet and hopefully transfer him from the ICU today or tomorrow. cc: Jaren Tejeda MD
--- NOTE | 2019-12-20 14:11 | GENERAL SURGERY PROGRESS NOTE ---
DATE: 12/20/2019 SUBJECTIVE: He has got NG tube in place. Denies any abdominal pain. He is not really having much in the way of bowel function per the patient. OBJECTIVE: Vital Signs: He is afebrile, pulse is in 80s, blood pressure 151/87, oxygen saturation 100%. General: He is chronically ill-appearing. NG tube is in place. Cardiovascular: Normal rate. Abdomen: Is soft, nontender, nondistended. LABS: White count 13, hematocrit 26. Creatinine 0.7. He had a C. diff that was negative and his abdominal x-ray yesterday shows some nonspecific bowel dilation diffusely. ASSESSMENT AND PLAN: A gentleman with most likely an ileus. We will continue NG tube decompression. Correction of electrolytes with K greater than 4, magnesium greater than 2 and likely will need peripheral nutrition, although his pre-albumin on was 20. We will continue to follow along. cc: Edie Lancaster MD
--- NOTE | 2019-12-20 19:03 | GASTROENTEROLOGY PROGRESS NOTE ---
DATE: 12/20/2019 HISTORY: Mr. Moody was resting comfortably. He has an NG tube in place. Tube feeding continues. He is tolerating his tube feeding well, albeit it is at a low rate. He reports no abdominal pain or abdominal cramps. Again, he has been tolerating his tube feeding well. PHYSICAL EXAMINATION: Vital signs: The patient is afebrile, pulse 92 per minute, breathing 22, blood pressure 149/81. Gastrointestinal: Abdomen is full and soft, but nontender. No mass or visceromegaly noted. Bowel sounds were audible. LABORATORIES: Reviewed. IMPRESSION: Ileus. The patient is doing well with low-dose tube feeding. His abdomen is full, but soft, and it is nontender. At this point no new suggestion. I would continue tube feeding and advance as tolerated to achieve the required rate. We will continue to follow. Again, at this point no new suggestion. cc: Supa Palencia MD
[2019-12-20] MEDS: MAXIPIME 1 GM in NS 50 ML IV SCH (20:39)
[2019-12-21] MEDS: D5W + KCL 20 MEQ 1,000 ML IV SCH (03:49)
[2019-12-21] MEDS: SYNTHROID IV SCH (06:30)
[2019-12-21] MEDS: SODIUM CHLORIDE 0.9% INJ PRN (06:30)
[2019-12-21 06:44] LABS: BASO# 0.05 X1000 (0.0-0.2); BASO% 0.3 % (0.0-0.8); HEMATOCRIT 24.4 % (42.0-52.0); HEMOGLOBIN 7.8 g/dL (14.0-18.0); IMM GRAN% 8.2 % (0.0-0.5); LYMPH# 2.55 X1000 (1.2-3.4); LYMPH% 13.9 % (20.5-51.1); MCH 28.7 PG (27-31); MCV 89.7 FL (81-99); MONO# 1.06 X1000 (0.11-0.59); MONO% 5.8 % (1.7-9.3); NEUT# 13.19 X1000 (1.4-6.5); NEUT% 71.8 % (42.2-75.2); PLT 155 X1000 (130-400); RBC 2.72 XMIL (4.7-6.1); RDW 14.9 % (11.5-14.5); WBC 18.35 X1000 (4.8-10.8)
[2019-12-21 07:03] LABS: AGAP 12; ALB/GLOB RATIO 1.3; ALBUMIN 2.8 g/dL (3.5-5.0); ALKALINE PHOSPHATASE 126 U/L (32-122); BUN 12 mg/dL (8-22); CALCIUM 8.3 mg/dL (8.8-10.2); CHLORIDE 104 mmol/L (98-107); COSMO 275; CREATININE 0.6 mg/dL (0.7-1.2); ESTIMATED GFR > 60; GLUCOSE 118 mg/dL (70-104); GOT 20 U/L (10-34); GPT 25 U/L (10-44); SODIUM 137 mmol/L (136-145); TCO2 21 mmol/L (25-35); TOTAL BILIRUBIN 0.62 mg/dL (0.20-1.00); TOTAL PROTEIN 4.9 g/dL (6.3-8.3)
[2019-12-21 07:06] LABS: MAGNESIUM 1.5 mg/dL (1.5-2.7); PHOSPHORUS 2.3 mg/dL (2.7-4.5)
[2019-12-21 07:36] LABS: LYMPHS 14 % (21-51); MONO 6 % (1-9); NRBC 1 % (0-0); SEGS 80 % (42-75)
[2019-12-21] MEDS: SOLU-CORTEF IV SCH ×2 (08:30→20:47)
[2019-12-21] MEDS: FOLIC ACID PO SCH (08:31)
[2019-12-21] MEDS: LOPRESSOR PO SCH ×2 (08:31→20:48)
--- NOTE | 2019-12-21 09:25 | Diag Imaging Result Doc PS360 ---
EXAM: CHEST-PORTABLE - 12/21/2019 HISTORY: dyspnea TECHNIQUE: Portable chest COMPARISON: 12/19/2019 FINDINGS: The nasogastric tube has been removed. Central venous catheter remains in place. Heart size is normal. There is mild prominence of central markings similar to prior. There is been development of subsegmental atelectasis at these superior left hilar region. There are no other acute changes identified. There is no pleural effusion or pneumothorax identified. IMPRESSION: Development of subsegmental atelectasis at left superior hilar region. No other acute changes. Electronically signed by Inocencio New 12/21/2019 9:22 AM
--- NOTE | 2019-12-21 10:57 | GENERAL SURGERY PROGRESS NOTE ---
DATE: 12/21/2019 SUBJECTIVE: He is passing gas. I believe he has had some bowel movements. He is tolerating clear liquids. His NG tube was removed yesterday. OBJECTIVE: Vital Signs: No fevers. Pulse in the 90s. Blood pressure 123/68. General: This is a chronically ill-appearing gentleman in no acute distress. HEENT: No scleral icterus. Cardiovascular: Normal rate. Pulmonary: No increased work of breathing. Abdomen: Mildly distended, but soft, nontender, nondistended. LABORATORY DATA: White count is 18, hematocrit is 24. Creatinine 0.6. ASSESSMENT AND PLAN: This is a gentleman with multiple medical issues. He has an ileus that seems to be resolving. Would recommend continued bowel stimulation, correction of electrolytes, and nutritional support. Will follow along, but no plans for surgical intervention. cc: Edie Lancaster MD
--- NOTE | 2019-12-21 14:01 | PROGRESS NOTE ---
DATE: 12/21/2019 SUBJECTIVE: I have seen and examined Mr. Moody today. Mr. Moody refers to be feeling a lot better. He said he did not really want to eat breakfast, but he has his lunch tray and he plans to eat. He denies any chest pain. He said he has been having regular bowel movements. Per the nursing staff, his stool looks quite soft and it looks like it is dark per the description. Hemoglobin has also dropped to 7.8. OBJECTIVE: Vital Signs: Blood pressure 137/85, pulse of 95, respirations 19, temperature 97.8 degrees. General: Mr. Moody is a 64-year-old gentleman. He is in bed. No distress. HEENT: Mucosa is pink and moist. Anicteric. Acyanotic. Neck: Supple. Chest: Good air entry bilaterally. There were no crepitations no rhonchi. Cardiovascular: Regular rate and rhythm. There is an old sternotomy scar on the anterior chest wall. There is a port on the right anterior chest wall. Abdomen: Soft, nontender. Bowel sounds present. Extremities: No pedal edema. Distal pulses present. SUPPORT SERVICE TECH: Patient is awake, alert, oriented. There is no focal deficit. LABORATORY DATA: WBC is 18.35, hemoglobin down to 7.8, platelet count of 155,000. Chemistry is reviewed. Potassium is 3.0. Rest of chemistry is unremarkable except for phosphorus that is also slightly low. Magnesium is 1.5. ASSESSMENT: 1. Acute hypoxemic respiratory failure on presentation. The patient needed to be intubated, was successfully extubated on 12/10/2019. He is currently on room air, seems to be doing remarkably well. 2. Diffuse multifocal pneumonia on presentation, improved. The patient is on day 9 of cefepime. Sputum culture was unremarkable. Blood cultures 5 days negative. 3. Atrial fibrillation with rapid ventricular response during the hospital course. The patient is currently on p.o. metoprolol and he has spontaneously converted to sinus. Cardiology is on board. 4. Severe pancytopenia with neutropenia on admission due to chemotherapy, resolved. 5. Ileus, improved. 6. Known case of diffuse B-cell lymphoma. Patient is status post first round of R-CHOP treatment on 12/04/2019. 7. History of hepatitis C. PCR and genotype have been reviewed. 8. Solitary kidney with stent in the right ureter done on 11/21/2019. 9. Altered mental status with hallucination during the ICU stay, presumably due to ICU delirium/psychosis, resolved. 10. 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 The patient had an MRI on 12/05/2019. We did not see any mass in the pituitary fossa. He is getting steroids and thyroid supplementation. At some point, Mr. Moody will need to be followed up by Endocrine to hopefully repeat all of these hormone levels and treat accordingly. 11. Dark stool, concerning for gastrointestinal bleed. The patient has hemoglobin dropped slightly this morning. We are going to get occult blood testing and we will follow up with his hemoglobin and hematocrit. We will transfuse if necessary. cc: Jaren Tejeda MD
[2019-12-21] MEDS: AMBIEN PO SCH (20:48)
[2019-12-21] MEDS: LYRICA PO SCH (20:48)
[2019-12-21] MEDS: PRAVACHOL PO SCH (20:48)
[2019-12-21] MEDS: MAXIPIME 1 GM in NS 50 ML IV SCH (20:48)
[2019-12-21] MEDS: ROBAXIN PO SCH (20:49)
--- NOTE | 2019-12-22 06:41 | GENERAL SURGERY PROGRESS NOTE ---
DATE: 12/22/2019 SUBJECTIVE: Patient seems to be doing okay. He has had bowel movements recorded. Nursing staff reports no major issues. The patient did have an Ambien last night or early this morning, and is resting. OBJECTIVE: Vital Signs: Patient is currently afebrile. His vital signs are stable. General: No acute distress. Resting. Cardiovascular: Regular rate and rhythm. Lungs: Grossly clear. Abdomen: Soft. Nondistended. Nontender. ASSESSMENT AND PLAN: A 64-year-old gentleman with resolving ileus. Resolving ileus. At this time, recommend continue current treatment. No immediate plans for surgical intervention. Patient is a little bit drowsy from his Ambien so could not ascertain if he is sick to his stomach, but nursing staff reports that he is not. From a surgical point of view, he can probably have his diet advanced. cc: Rodney Blum MD
[2019-12-22] MEDS: SYNTHROID PO SCH (06:46)
[2019-12-22 06:53] LABS: HEMATOCRIT 25.7 % (42.0-52.0); HEMOGLOBIN 8.3 g/dL (14.0-18.0); MCH 29.2 PG (27-31); MCHC 32.3 g/dL (33-37); MCV 90.5 FL (81-99); MPV 10.8 FL (7.4-10.4); RBC 2.84 XMIL (4.7-6.1); RDW 16.6 % (11.5-14.5); WBC 19.28 X1000 (4.8-10.8)
[2019-12-22 07:11] LABS: AGAP 14; ALB/GLOB RATIO 1.5; ALBUMIN 2.9 g/dL (3.5-5.0); ALKALINE PHOSPHATASE 126 U/L (32-122); BUN 12 mg/dL (8-22); CALCIUM 8.4 mg/dL (8.8-10.2); CHLORIDE 103 mmol/L (98-107); COSMO 277; CREATININE 0.9 mg/dL (0.7-1.2); ESTIMATED GFR > 60; GLUCOSE 91 mg/dL (70-104); GOT 19 U/L (10-34); GPT 22 U/L (10-44); POTASSIUM 3.3 mmol/L (3.5-5.1); SODIUM 139 mmol/L (136-145); TCO2 22 mmol/L (25-35); TOTAL BILIRUBIN 0.72 mg/dL (0.20-1.00); TOTAL PROTEIN 4.8 g/dL (6.3-8.3)
[2019-12-22] MEDS: ROBAXIN PO SCH ×2 (08:31→21:01)
[2019-12-22] MEDS: SOLU-CORTEF IV SCH ×2 (08:31→21:02)
[2019-12-22] MEDS: FOLIC ACID PO SCH (08:31)
[2019-12-22] MEDS: LOPRESSOR PO SCH ×2 (08:31→21:01)
--- NOTE | 2019-12-22 08:54 | CARDIOLOGY PROGRESS NOTE ---
DATE: 12/22/2019 CHIEF COMPLAINT: Shortness of breath, irregular heartbeat. SUBJECTIVE: Mr. Moody has definitely improved. He is upstairs in the surgical shaffer. He is eating his breakfast. He is in good mood. Fully aware, awake, cooperative. He has no pain, no complaints. His ileus has resolved. OBJECTIVE: Vital signs: Blood pressure 114/60, temperature 98.4 degrees, pulse 84, respirations 17. bus driver/monitor shows only 1 short run of atrial tachycardia containing just no more than 12 beats. He is in sinus rhythm right now. General: He is awake, somewhat pale. Neck: Neck veins are not distended. Chest: Diminished breath sounds bilaterally without rales. Heart: Sounds are regular and rhythmic. I do not hear a gallop or murmur. Abdomen: Nontender. Extremities: Showed no edema. Good pulses. Neurologic exam: He follows commands, moves all 4 extremities. He is awake, alert x3. BLOOD WORK: Hemoglobin 8.3, hematocrit 25.7, white cell count 19,280. Sodium 139, potassium 3.3, BUN 12, creatinine 0.9. His most recent chest x-ray from yesterday that shows subsegmental atelectasis at left superior hilar region, no acute changes. IMPRESSION: 1. Patient who presented to the hospital with hypoxemic respiratory failure. He had pulmonary edema probably a combination of cardiogenic and noncardiogenic. This has improved and resolved. 2. Paroxysmal atrial fibrillation. This has stabilized with beta-blockers. 3. Ileus that complicated his course, this also has resolved. 4. B-cell lymphoma with chemotherapy. 5. History of aortic valve replacement with a bioprosthetic valve, stable. 6. Coronary atherosclerosis, which is stable. 7. [id number] renal dysfunction. This has also improved. RECOMMENDATIONS: At this time, the patient really seems to be stable from the cardiac viewpoint. I do not have any further recommendations. He can be maintained on present doses of metoprolol. Because his low hemoglobin and his hematological malignancy, I really do not want to push for him to be anticoagulated. There is seemingly an increased risk for a stroke in the long run however other comorbidities may complicate this preventative intervention. I will leave this up to the Oncology team to decide if anticoagulant is reasonable given his complicated features. At this time, I am going to sign off and we will happy to arrange for outpatient followup. Dr. Pelayo has been his egg processor and we can probably set him up for him to see him in the next month or two. cc: Warren Scott MD MTDD
[2019-12-22] MEDS ORDERED: KLOR-CON PO ONE (11:44)
--- NOTE | 2019-12-22 11:57 | PROGRESS NOTE ---
DATE: 12/22/2019 SUBJECTIVE: I have seen and examined Mr. Moody this morning. Mr. Moody refers to be doing well. He was actually sitting up in the chair. Denies any new complaints. He said he has had a bowel movement. OBJECTIVE: Vital Signs: Blood pressure 133/72, pulse of 92, respirations of 18, temperature is 98.3 degrees, the patient is saturating 95% on room air. General Examination: Mr. Moody is a 64-year-old, gentleman. He was sitting in the chair. No distress. HEENT: Mucosa is pink and moist. Anicteric. Acyanotic. Neck: Supple. Chest: Clear to auscultation. There were no crepitations, no rhonchi. Cardiovascular: Regular rate and rhythm. No murmurs, no rubs, no gallops. There is an old sternotomy scar on the anterior chest wall. There is also a port on the right anterior chest wall. GI: Abdomen is soft. Bowel sounds present. There is no hepatosplenomegaly. There is a Neulasta pump on the left lower abdominal wall. SHEET ROCK APPLICATOR: The patient is awake, alert, oriented. There is no focal deficit. Laboratory Data: WBC is 19.28, hemoglobin of 8.3, platelet count of 192,000. Chemistry is also reviewed and unremarkable except for a potassium of 3.3. ASSESSMENT: 1. Acute hypoxemic respiratory failure on presentation. The patient was intubated during the initial stages of the hospital course and was successfully extubated on 12/10/2019. He is currently on room air. 2. Diffuse bilateral pneumonia on presentation. The patient significantly improved. Today is day 10 on cefepime. Sputum cultures and blood cultures have all been negative. We plan to treat him for 14 days. The cefepime can be switched to oral Levaquin to complete the treatment. 3. Atrial fibrillation with rapid ventricular response during the hospital course, stabilized. The patient is currently on oral metoprolol. Cardiology is on board. 4. Severe pancytopenia with neutropenia on admission due to chemotherapy, resolved. 5. Ileus, improved. 6. Known case of diffuse B-cell lymphoma. Patient is status post first round of R-CHOP treatment on 12/04/[address] Rangel. 7. History of hepatitis C. PCR and genotype noted. 8. Solitary kidney, status post stent placement in the right ureter done on 11/21/2019. 9. Altered mental status with hallucinations during the intensive care unit stay secondary to intensive care unit delirium, resolved. 10. 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 The patient is currently on steroids and thyroid supplementation. He has been advised to follow up with endocrine at a later date. PLAN: In general, I think Mr. Moody is doing a lot better. He is up and sitting up in a chair. He said he is tolerating his GI soft diet. We are going to advance this to a regular diet this morning. Replace his potassium and hopefully he tolerates his diet today and get some physical therapy and hopefully get him discharged tomorrow. cc: Jaren Tejeda MD MTDD
--- NOTE | 2019-12-22 15:00 | GASTROENTEROLOGY PROGRESS NOTE ---
DATE: 12/22/2019 SUBJECTIVE: The patient was sitting up in the bed in no acute distress. He is alert and oriented. He states he has tolerated a diet. Per nurse tech, he had several liquid stools yesterday, and no reported bowel movement today. OBJECTIVE: Vital Signs: Temperature 97.6 degrees, pulse 90, respirations 18, and blood pressure 104/60. General: Patient is awake and alert in no acute distress. Abdomen: Soft and nontender. Positive bowel sounds. LABORATORY: Hematology: WBC 19.28, hemoglobin 8.3, hematocrit 25.7, MCV 90.5, and platelets 192,000. Chemistries: Sodium 139, potassium 3.3, chloride 103 CO2 of 22, BUN 12, creatinine 0.9, glucose 91, calcium 8.4, alkaline phosphatase 126, total bilirubin 0.72, AST 19, and ALT 22. ASSESSMENT AND PLAN: 1. Recent respiratory failure, now extubated on room air. 2. Pneumonia has been treated with antibiotics. 3. Ileus has improved. He has had some bowel movements. Abdomen is soft. He is tolerating a diet. 4. Altered mental status has improved. Patient is awake, alert, oriented to person, place, and time today. 5. Patient's status has improved. Continue current management. 6. Patient has history of hepatitis C, HCV, and RNA was noted 2,160,000 with a genotype 1a. Would recommend patient following with us as an outpatient for preparation of possible hepatitis C treatment. 7. I have discussed this case with Dr. Palencia. Dictated by RACHEL Leslie for Supa Palencia MD cc: RACHEL Bonilla MD
[2019-12-22] MEDS: LYRICA PO SCH (21:01)
[2019-12-22] MEDS: AMBIEN PO SCH (21:01)
[2019-12-22] MEDS: MAXIPIME 1 GM in NS 50 ML IV SCH (21:01)
[2019-12-22] MEDS: PRAVACHOL PO SCH (21:01)
--- NOTE | 2019-12-23 06:37 | GENERAL SURGERY PROGRESS NOTE ---
DATE: 12/23/2019 SUBJECTIVE: Patient seems to be doing okay. He is more alert this morning. He has tolerated his diet. He is not sick to his stomach. OBJECTIVE: Vital Signs: Patient is currently afebrile. His vital signs are stable. General: No acute distress. HEENT: Normocephalic, atraumatic. Pupils equal, round, and reactive to light. Mucous membranes moist. Oropharynx benign. Neck: Supple. Trachea midline. Cardiovascular: Regular rate and rhythm. Lungs: Grossly clear. Abdomen: Soft. Nondistended. Nontender. Extremities: Moves all extremities. Neurologic: Grossly intact. Skin: No signs of jaundice. Vascular: All extremities perfused. LABORATORY: Reviewed from yesterday. ASSESSMENT AND PLAN: A 64-year-old gentleman with resolving ileus. 1. Resolving ileus. At this time, I think it is probably safe from a surgical point of view to discharge him, but he does have several other medical issues that may keep him here. 2. Multiple medical comorbidities at this time being managed by the subspecialties. We will defer to them on discharge. cc: Rodney Blum MD
[2019-12-23] MEDS: SYNTHROID PO SCH (06:42)
[2019-12-23 06:58] LABS: HEMATOCRIT 23.7 % (42.0-52.0); HEMOGLOBIN 7.7 g/dL (14.0-18.0); MCH 30.1 PG (27-31); MCHC 32.5 g/dL (33-37); MCV 92.6 FL (81-99); MPV 11.1 FL (7.4-10.4); RBC 2.56 XMIL (4.7-6.1); RDW 18.2 % (11.5-14.5); WBC 15.59 X1000 (4.8-10.8)
[2019-12-23 07:23] LABS: MAGNESIUM 1.9 mg/dL (1.5-2.7); PHOSPHORUS 3.5 mg/dL (2.7-4.5)
[2019-12-23 07:25] LABS: AGAP 13; ALB/GLOB RATIO 1.5; ALKALINE PHOSPHATASE 122 U/L (32-122); BUN 15 mg/dL (8-22); CALCIUM 8.2 mg/dL (8.8-10.2); CHLORIDE 107 mmol/L (98-107); COSMO 282; ESTIMATED GFR > 60; GLUCOSE 88 mg/dL (70-104); GOT 18 U/L (10-34); GPT 20 U/L (10-44); POTASSIUM 3.5 mmol/L (3.5-5.1); SODIUM 141 mmol/L (136-145); TCO2 21 mmol/L (25-35)
[2019-12-23] MEDS: FOLIC ACID PO SCH (08:30)
[2019-12-23] MEDS: SOLU-CORTEF IV SCH (08:30)
[2019-12-23] MEDS: ROBAXIN PO SCH (08:31)
[2019-12-23] MEDS: LOPRESSOR PO SCH (08:31)
--- NOTE | 2019-12-23 11:01 | NEUROLOGY PROGRESS NOTE ---
DATE: 12/23/2019 SUBJECTIVE: Mr. Moody has made significant progress over the last several days from a mental status standpoint. This morning, he told me that he remembers me seeing him and questioning him in the ICU and he remembers some of the specific questions I asked him last week. OBJECTIVE: Now, he is oriented, alert, attentive. Speech is not dysarthric. PLAN: I do not have any further suggestion from a Neurology standpoint. There is history of mild cognitive impairment and he will have risk for increased features of encephalopathy with any toxic or metabolic disturbance in the future. I do not think we need further workup from Neurology standpoint at this time. I will be glad to see Mr. Moody again, if needed. cc: MD DILAN Wilkerson III
[2019-12-23] MEDS ORDERED: NS 500 ML ONE (12:39)
[2019-12-23] MEDS ORDERED: PNEUMOVAX 23 IM ONE (13:22)
[2019-12-23 15:18] VITALS: BP 119/66
--- NOTE | 2019-12-23 16:52 | GASTROENTEROLOGY PROGRESS NOTE ---
DATE: 12/23/2019 SUBJECTIVE: Patient was sitting up on the side of the bed. No acute distress noted. There has been no evidence of active GI bleeding. He has had bowel movements. He did have a drop in his hemoglobin and hematocrit and has orders to receive packed red blood cells. OBJECTIVE: Vital Signs: Temperature 98.7 degrees, pulse 76, respirations 18, blood pressure 126/66. LABORATORY: Hematology: WBC 15.59, hemoglobin 7.7, hematocrit 23.7, MCV 92.6, platelet 178,000. Chemistry: Sodium 141, potassium 3.5, chloride 107, CO2 21, BUN 15, creatinine 1.0, glucose 88. ASSESSMENT AND PLAN: 1. Recent respiratory failure, now extubated. He is on room air, in no respiratory distress. 2. Pneumonia, on antibiotics. 3. Ileus has improved. He has had bowel movements. Abdomen is soft. 4. Anemia. He will receive packed red blood cells today. 5. Hepatitis C with positive viral load. Would recommend follow up as an outpatient for treatment. Further plans will be made as needed. We will continue to follow. I have discussed this case with Dr. Palencia. Dictated by RACHEL Leslie for Supa Palencia MD cc: RACHEL Bonilla MD
--- NOTE | 2019-12-24 06:19 | DISCHARGE SUMMARY ---
ADMISSION DATE: 12/06/2019 DISCHARGE DATE: 12/23/2019 DISPOSITION: Home. FOLLOW-UP: 1. Dr. Mao Gomez. 2. Dr. Palencia. 3. Dr. Pelayo. 4. Dr. Rangel. 5. Dr. Shine. 6. Dr. Giana Tarango [employer] [facility] in [place]. INVASIVE PROCEDURES DONE DURING ADMISSION: None. IMAGING STUDIES OF SIGNIFICANCE: A CT scan of the abdomen and pelvis was done on 12/12/2019, which revealed enlargement of the right kidney and left renal remnant. There was perinephric stranding on the right. This may be related to pyelonephritis ileus, the possibility of enterocolitis cannot be excluded. Multiple chest x-rays were done during the hospital course. The patient was intubated during the hospital course from 12/05 and extubated on 12/09. MICROBIOLOGY DATA: Unremarkable. ADMISSION DIAGNOSES: 1. Presented with respiratory failure. 2. Renal dysfunction. 3. Elevated potassium. DISCHARGE DIAGNOSES: 1. Acute hypoxemic respiratory failure. The patient needed to be intubated during the initial stages of the hospital course, and successfully extubated after 4 days. 2. Diffuse bilateral pneumonia on presentation. 3. Atrial fibrillation with RVR during the hospital course. 4. Severe pancytopenia with neutropenia on admission due to chemotherapy. 5. Ileus. 6. Diffuse B-cell lymphoma status post first run of R-CHOP treatment on 12/04/2019. 7. History of hepatitis C, PCR and genotype noted. 8. Solitary kidney, status post stent placement on the right ureter done on 11/21/2019. Patient presented with what is also suspected to have been mild right pyelonephritis. 9. Altered mental status with hallucinations during the hospital course secondary to delirium associated with ICU. 10. 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 The patient has been advised to follow up with Dr. Faria manager budget. DISCHARGE MEDICATIONS: 1. Metoprolol 50 mg b.i.d. 2. Gabapentin 150 at bedtime. 3. Zolpidem 10 mg p.o. at bedtime. 4. Lansoprazole 30 mg p.o. daily. 5. Methocarbamol 750 b.i.d. 6. Edgard 1 tablet q.6h p.r.n. 7. Zofran 4 mg p.o. q.6. 8. Cetirizine 10 mg b.i.d. 9. Levothyroxine 25 mcg p.o. daily. 10. Levofloxacin 500 p.o. daily. 11. Hydrocortisone 10 mg b.i.d. PRESENTING COMPLAINT: Shortness of breath and generalized weakness. HISTORY OF PRESENTING COMPLAINT: Mr. Moody is a 64-year-old male who was recently diagnosed with diffuse large B-cell lymphoma, and underwent first round of R- CHOP treatment about 2 days prior to presentation. He started having some shortness of breath, and came to the emergency room, where he was found to be extremely hypoxemic, and was intubated right away. Patient was admitted to the critical care unit for further medical care. HOSPITAL COURSE: Mr. Moody was admitted to the critical care unit and was started on broad- spectrum IV antibiotics. Cultures were done which eventually blood cultures, urine cultures, and sputum all came back negative. Subsequent chest x-ray continues to show improvement. His procalcitonin level was slightly elevated. Mr. Moody was found during the hospital course was found to be remarkably neutropenic, which progressively got better during the hospital course. During the hospital course, Mr. Moody was found also to be low on his testosterone, low on his cortisol and hydrochlorothiazide, ACTH, and low on TSH and thyroid hormones. 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 He was started on steroids and levothyroxine supplements. Mr. Moody progressively showed improvement. He was successfully extubated and eventually transitioned from the ICU to the medical floor. During the hospital course, he was found to also have ileus which surgery was consulted as well as GI. He progressively showed improvement to where he has been having bowel movement and tolerating his diet. Today, he feels a lot better. He said he has had 2 bowel movements yesterday. He is tolerating about 50% of his diet. He was seen by physical therapy yesterday. He did 30 feet minimum assist with front wheel walker. We think he is fairly stable today to be discharged. All the discharge instructions have been discussed with him, he needs to follow up with the hematology/oncology team as well as his primary care physician and all the other subspecialties that have been involved with his care. TIME SPENT: The time spent for discharge is 45 minutes. cc: Jaren Tejeda MD [facility]
--- NOTE | 2019-12-24 08:48 | HEMO/ONC PROGRESS NOTE ---
DATE: 12/23/2019 CHIEF COMPLAINT: "I'm feeling much better at this time." PHYSICAL EXAM: Vital Signs: Temperature is 98.5 degrees, blood pressure 119/66, heart rate 74, respirations 18, O2 saturation 100% on room air. HEENT: Normocephalic, atraumatic. Mucous membranes are pale and moist. Sclerae anicteric. Extraocular movements intact. Lungs: Respirations unlabored. CV: S1, S2. Abdomen: Nondistended. Extremities: No clubbing, cyanosis or edema. Dermatologic: No rashes, bruises or lesions. Neurologic: The patient is awake, alert, and oriented x3 with no overt focal deficits. LABORATORY DATA: Hemoglobin 7.7, hematocrit 23.7, white blood cell count is 15.59, platelets 178. Sodium 141, potassium 3.5, chloride 107, CO2 is 21. BUN 15, creatinine 1.0, and glucose is 88. LFTs within normal limits. ASSESSMENT AND PLAN: 1. Diffuse large B-cell lymphoma, status post cycle 1 of RR-CHOP on 12/04/2019. We will continue to hold treatment until the patient's acute illness improves. 2. Acute respiratory failure. The patient is on room air at this time with no acute respiratory distress. Oxygen saturation has been in the high 90s. 3. Altered mental status, completely resolved. Neurologic workup was negative, likely secondary to intensive care unit psychosis. 4. Neutropenia. White blood cell count is 15.59, ANC has been stable. We will continue to monitor. 5. Anemia. Hemoglobin is currently 7.7. The patient will receive an additional 1 unit packed red blood cells today. We will continue to monitor and transfuse if hemoglobin drops below 8.0 or in the setting of active bleeding. 6. We will follow along with you and make further recommendations pending outcomes. The above reflects the history, exam, assessment and plan of Dr. Rangel. Dictated by RACHEL Simon for Stephen Rangel MD cc: RACHEL Simon MD
== END 2019-12-23 18:28 | disposition home health service (06) | DRG 870 ==
LOC: SUPCPDRO → ED 11:10 → ICU 15:55 → SUATTDRO 15:55 → 4N 12-20 17:49
PROVIDERS: ATTEND Internal Medicine